=== PATIENT | female | born 1955 | race Caucasian/White ===

== ENCOUNTER 2018-06-15 13:56 | Inpatient (IN) | payer OTHER, MEDICARE ==
[2018-06-15] MEDS ORDERED: ONDANSETRON 4 MG/2 ML VIAL IVP STA (14:29)
[2018-06-15] MEDS ORDERED: HYDROmorphone 1 MG/ML 1 ML SYRINGE IVP STA (14:29)
--- NOTE | 2018-06-15 14:32 | ED ---
General Adult HPI - General Chief complaint: Shortness of Breath Stated complaint: weakness Time Seen by Provider: 06/15/18 14:00 Source: patient, family, RN notes reviewed Mode of arrival: wheelchair Limitations: no limitations - History of Present Illness Initial comments: This is a 63-year-old female with a past medical history significant for a recent hysterectomy including both ovaries this occurred on May 14. Patient 's uterus wasn't here to the colon so they did a colectomy as well and the patient ended up with an ileostomy. Patient has had post op fevers initially and she was sent back to [facility] and they put her on antibiotics and sent home on Invanz. Patient comes in today because she has had weakness over the last few days the point where she can barely stand up. Patient has no new complaints of pain. Patient denies any chest pain difficulty breathing shortest breath per patient patient states she has some lower abdominal pain but she's had that pain since her surgery on May 14 and she has had no new pain in that area.patient denies nausea vomiting or diarrhea. Patient denies any back pain. Patient denies any recent injury or fall. Patient denies any fever or chills. Patient denies any dysuria hematuria or urinary frequency. Patient denies any cough. - Related Data Home Medications Medication Instructions Recorded Confirmed Ertapenem [INVanz] 1 gm IVPB Q24H 06/15/18 06/15/18 Lisinopril [Zestril] 10 mg PO DAILY PRN 06/15/18 06/15/18 oxyCODONE HCL [OxyIR] 5 mg PO Q4H PRN 06/15/18 06/15/18 Allergies Allergy/AdvReac Type Severity Reaction Status Date / Time No Known Allergies Allergy Verified 06/15/18 14:35 Review of Systems ROS Statement: Those systems with pertinent positive or pertinent negative responses have been documented in the HPI. ROS Other: All systems not noted in ROS Statement are negative. Past Medical History Past Medical History: Hypertension, Rheumatoid Arthritis (RA) History of Any Multi-Drug Resistant Organisms: None Reported Past Surgical History: Bowel Resection, Hysterectomy, Joint Replacement, Orthopedic Surgery Additional Past Surgical History / Comment(s): ileostomy, colon resection Past Psychological History: No Psychological Hx Reported Smoking Status: Never smoker Past Alcohol Use History: Occasional Past Drug Use History: Marijuana General Exam - General Exam Comments Initial Comments: GENERAL: Patient is well-developed and well-nourished. Patient is nontoxic and well- hydrated and is in mild distress. ENT: Neck is soft and supple. No significant lymphadenopathy is noted. Oropharynx is clear. Moist mucous membranes. Neck has full range of motion without eliciting any pain. EYES: The sclera were anicteric and conjunctiva were pink and moist. Extraocular movements were intact and pupils were equal round and reactive to light. Eyelids were unremarkable. PULMONARY: Unlabored respirations. Good breath sounds bilaterally. No audible rales rhonchi or wheezing was noted. CARDIOVASCULAR: patient is tachycardic at about 110 beats a minute ABDOMEN: patient has mild diffuse abdominal tenderness. Patient has an ileostomy SKIN: Skin is clear with no lesions or rashes and otherwise unremarkable. NEUROLOGIC: Patient is alert and oriented x3. Cranial nerves II through XII are grossly intact. Motor and sensory are also intact. Normal speech, volume and content. Symmetrical smile. MUSCULOSKELETAL: Normal extremities with adequate strength and full range of motion. No lower extremity swelling or edema. No calf tenderness. LYMPHATICS: No significant lymphadenopathy is noted PSYCHIATRIC: Normal psychiatric evaluation. Limitations: no limitations Course Vital Signs 06/15/18 06/15/18 14:03 16:05 Temperature 97.9 F Pulse Rate 122 H Pulse Rate [ 116 H Right Standing] Pulse Rate [ 103 H Sitting] Pulse Rate [ 93 Supine] Respiratory 24 Rate Blood Pressure 71/58 Blood Pressure 135/79 [Right Arm Sitting] Blood Pressure 116/73 [Right Arm Supine] Blood Pressure 96/68 [Standing] O2 Sat by Pulse 95 Oximetry Medical Decision Making - Lab Data Result diagrams: 06/15/18 14:25 06/15/18 16:25 Lab Results 06/15/18 06/15/18 06/15/18 Range/Units 14:25 14:25 14:25 WBC 12.4 H (3.8-10.6) k/uL RBC 4.31 (3.80-5.40) m/uL Hgb 11.5 (11.4-16.0) gm/dL Hct 36.7 (34.0-46.0) % MCV 85.0 (80.0-100.0) fL MCH 26.8 (25.0-35.0) pg MCHC 31.5 (31.0-37.0) g/dL RDW 17.5 H (11.5-15.5) % Plt Count 482 H (150-450) k/uL Neutrophils % 75 % Lymphocytes % 18 % Monocytes % 4 % Eosinophils % 2 % Basophils % 1 % Neutrophils # 9.3 H (1.3-7.7) k/uL Lymphocytes # 2.2 (1.0-4.8) k/uL Monocytes # 0.5 (0-1.0) k/uL Eosinophils # 0.2 (0-0.7) k/uL Basophils # 0.1 (0-0.2) k/uL Hypochromasia Slight Anisocytosis Slight PT (9.0-12.0) sec INR (<1.2) APTT (22.0-30.0) sec Sodium 135 L (137-145) mmol/L Potassium 5.8 H (3.5-5.1) mmol/L Chloride 105 (98-107) mmol/L Carbon Dioxide 20 L (22-30) mmol/L Anion Gap 10 mmol/L BUN 22 H (7-17) mg/dL Creatinine 1.35 H (0.52-1.04) mg/dL Est GFR (CKD-EPI)AfAm 48 (>60 ml/min/1.73 sqM) Est GFR (CKD-EPI)NonAf 42 (>60 ml/min/1.73 sqM) Glucose 146 H (74-99) mg/dL Plasma Lactic Acid Alireza (0.7-2.0) mmol/L Calcium 8.7 (8.4-10.2) mg/dL Total Bilirubin 0.4 (0.2-1.3) mg/dL AST 20 (14-36) U/L ALT 23 (9-52) U/L Alkaline Phosphatase 172 H (38-126) U/L Total Creatine Kinase <20 L (30-135) U/L CK-MB (CK-2) 0.7 (0.0-2.4) ng/mL CK-MB (CK-2) Rel Index Troponin I <0.012 (0.000-0.034) ng/mL Total Protein 6.9 (6.3-8.2) g/dL Albumin 2.9 L (3.5-5.0) g/dL Urine Color Urine Appearance (Clear) Urine pH (5.0-8.0) Ur Specific [place] (1.001-1.035) Urine Protein (Negative) Urine Glucose (UA) (Negative) Urine Ketones (Negative) Urine Blood (Negative) Urine Nitrite (Negative) Urine Bilirubin (Negative) Urine Urobilinogen (<2.0) mg/dL Ur Leukocyte Esterase (Negative) Urine RBC (0-5) /hpf Urine WBC (0-5) /hpf Urine WBC Clumps (None) /hpf 06/15/18 06/15/18 06/15/18 Range/Units 14:25 14:25 16:25 WBC (3.8-10.6) k/uL RBC (3.80-5.40) m/uL Hgb (11.4-16.0) gm/dL Hct (34.0-46.0) % MCV (80.0-100.0) fL MCH (25.0-35.0) pg MCHC (31.0-37.0) g/dL RDW (11.5-15.5) % Plt Count (150-450) k/uL Neutrophils % % Lymphocytes % % Monocytes % % Eosinophils % % Basophils % % Neutrophils # (1.3-7.7) k/uL Lymphocytes # (1.0-4.8) k/uL Monocytes # (0-1.0) k/uL Eosinophils # (0-0.7) k/uL Basophils # (0-0.2) k/uL Hypochromasia Anisocytosis PT 10.1 (9.0-12.0) sec INR 0.9 (<1.2) APTT 22.8 (22.0-30.0) sec Sodium (137-145) mmol/L Potassium (3.5-5.1) mmol/L Chloride (98-107) mmol/L Carbon Dioxide (22-30) mmol/L Anion Gap mmol/L BUN (7-17) mg/dL Creatinine (0.52-1.04) mg/dL Est GFR (CKD-EPI)AfAm (>60 ml/min/1.73 sqM) Est GFR (CKD-EPI)NonAf (>60 ml/min/1.73 sqM) Glucose (74-99) mg/dL Plasma Lactic Acid Alireza 1.9 (0.7-2.0) mmol/L Calcium (8.4-10.2) mg/dL Total Bilirubin (0.2-1.3) mg/dL AST (14-36) U/L ALT (9-52) U/L Alkaline Phosphatase (38-126) U/L Total Creatine Kinase (30-135) U/L CK-MB (CK-2) (0.0-2.4) ng/mL CK-MB (CK-2) Rel Index Troponin I (0.000-0.034) ng/mL Total Protein (6.3-8.2) g/dL Albumin (3.5-5.0) g/dL Urine Color Light Red Urine Appearance Turbid H (Clear) Urine pH 6.5 (5.0-8.0) Ur Specific [place] 1.021 (1.001-1.035) Urine Protein 3+ H (Negative) Urine Glucose (UA) Negative (Negative) Urine Ketones Negative (Negative) Urine Blood Moderate H (Negative) Urine Nitrite Negative (Negative) Urine Bilirubin Negative (Negative) Urine Urobilinogen 8.0 (<2.0) mg/dL Ur Leukocyte Esterase Large H (Negative) Urine RBC 84 H (0-5) /hpf Urine WBC >182 H (0-5) /hpf Urine WBC Clumps Many H (None) /hpf 06/15/18 Range/Units 16:25 WBC (3.8-10.6) k/uL RBC (3.80-5.40) m/uL Hgb (11.4-16.0) gm/dL Hct (34.0-46.0) % MCV (80.0-100.0) fL MCH (25.0-35.0) pg MCHC (31.0-37.0) g/dL RDW (11.5-15.5) % Plt Count (150-450) k/uL Neutrophils % % Lymphocytes % % Monocytes % % Eosinophils % % Basophils % % Neutrophils # (1.3-7.7) k/uL Lymphocytes # (1.0-4.8) k/uL Monocytes # (0-1.0) k/uL Eosinophils # (0-0.7) k/uL Basophils # (0-0.2) k/uL Hypochromasia Anisocytosis PT (9.0-12.0) sec INR (<1.2) APTT (22.0-30.0) sec Sodium (137-145) mmol/L Potassium 5.8 H (3.5-5.1) mmol/L Chloride (98-107) mmol/L Carbon Dioxide (22-30) mmol/L Anion Gap mmol/L BUN (7-17) mg/dL Creatinine (0.52-1.04) mg/dL Est GFR (CKD-EPI)AfAm (>60 ml/min/1.73 sqM) Est GFR (CKD-EPI)NonAf (>60 ml/min/1.73 sqM) Glucose (74-99) mg/dL Plasma Lactic Acid [place] (0.7-2.0) mmol/L Calcium (8.4-10.2) mg/dL Total Bilirubin (0.2-1.3) mg/dL AST (14-36) U/L ALT (9-52) U/L Alkaline Phosphatase (38-126) U/L Total Creatine Kinase (30-135) U/L CK-MB (CK-2) (0.0-2.4) ng/mL CK-MB (CK-2) Rel Index Troponin I (0.000-0.034) ng/mL Total Protein (6.3-8.2) g/dL Albumin (3.5-5.0) g/dL Urine Color Urine Appearance (Clear) Urine pH (5.0-8.0) Ur Specific [place] (1.001-1.035) Urine Protein (Negative) Urine Glucose (UA) (Negative) Urine Ketones (Negative) Urine Blood (Negative) Urine Nitrite (Negative) Urine Bilirubin (Negative) Urine Urobilinogen (<2.0) mg/dL Ur Leukocyte Esterase (Negative) Urine RBC (0-5) /hpf Urine WBC (0-5) /hpf Urine WBC Clumps (None) /hpf Disposition Clinical Impression: Sepsis, Urinary tract infection Disposition: ADMITTED IP TO THIS HOSP Referrals: Tammy Antony MD [Primary Care Provider] - 1-2 days Time of Disposition: 16:56
[2018-06-15 14:57] LABS: Anisocytosis Slight; Basophils # (A) 0.1 k/uL (0-0.2); Basophils % (A) 1 %; Eosinophils # (A) 0.2 k/uL (0-0.7); Eosinophils % (A) 2 %; HCT 36.7 % (34.0-46.0); HGB 11.5 gm/dL (11.4-16.0); Hypochromasia Slight; Lymphocytes # (A) 2.2 k/uL (1.0-4.8); Lymphocytes % (A) 18 %; MCH 26.8 pg (25.0-35.0); MCHC 31.5 g/dL (31.0-37.0); Mean Platelet Volume 7.4; Monocytes # (A) 0.5 k/uL (0-1.0); Monocytes % (A) 4 %; Neutrophils # (A) 9.3 k/uL (1.3-7.7); Neutrophils % (A) 75 %; Platelet Count 482 k/uL (150-450); RBC 4.31 m/uL (3.80-5.40); RDW 17.5 % (11.5-15.5); WBC 12.4 k/uL (3.8-10.6)
[2018-06-15] MEDS ORDERED: SODIUM CHLORIDE 0.9% 500 ML 500 ML IV ONE (14:57)
[2018-06-15] MEDS ORDERED: SODIUM CHLORIDE 0.9% 1,000 ML IV ONE (14:57)
[2018-06-15 15:05] LABS: INR 0.9 (<1.2); Partial Thromboplastin Time 22.8 sec (22.0-30.0); Prothrombin Time 10.1 sec (9.0-12.0)
[2018-06-15 15:13] LABS: Albumin 2.9 g/dL (3.5-5.0); Calcium 8.7 mg/dL (8.4-10.2); Potassium 5.8 mmol/L (3.5-5.1); Total Bilirubin 0.4 mg/dL (0.2-1.3); Total Protein 6.9 g/dL (6.3-8.2)
[2018-06-15 15:15] LABS: Creatine Kinase <20 U/L (30-135)
[2018-06-15 15:28] LABS: Creatine Kinase MB 0.7 ng/mL (0.0-2.4); Troponin I <0.012 ng/mL (0.000-0.034)
[2018-06-15 16:47] LABS: Appearance,Urine Turbid (Clear); Bilirubin,Urine Negative (Negative); Blood,Urine Moderate (Negative); Color,Urine Light Red; Glucose,Urine (UA) Negative (Negative); Ketones,Urine Negative (Negative); Leukocyte Esterase,Urine Large (Negative); Nitrite,Urine Negative (Negative); PH, Urine 6.5 (5.0-8.0); Protein,Urine 3+ (Negative); RBC,Urine 84 /hpf (0-5); WBC,Urine >182 /hpf (0-5)
[2018-06-15 16:52] LABS: Specific Gravity,Urine 1.021 (1.001-1.035)
--- NOTE | 2018-06-15 17:49 | XR ---
EXAMINATION: XR chest 2V DATE AND TIME: 06/15/2018 4:42 PM CLINICAL INDICATION: PHH; Weakness TECHNIQUE: Departmental protocol COMPARISON: 03/04/2018 FINDINGS: Right upper extremity PICC line tip is over the expected position of the cavoatrial junction. The lungs are clear. The pleural spaces are negative. The cardiac silhouette is not enlarged. The remainder of the mediastinal silhouette is unremarkable. The skeletal structures and soft tissues are negative for acute findings. IMPRESSION: NO ACUTE PROCESS.
[2018-06-15] MEDS ORDERED: FUROSEMIDE 10 MG/ML 4 ML VIAL IV STA (18:51)
[2018-06-15] MEDS ORDERED: ALBUTEROL NEBULIZED 2.5 MG/3 ML INHALATION STA ×2 (18:53→19:22)
[2018-06-15 20:15] VITALS: BMI 13.8
[2018-06-15] MEDS ORDERED: LISINOPRIL 10 MG TAB PO PRN (20:46)
[2018-06-15] MEDS ORDERED: ERTAPENEM 1 GM VIAL IVPB SCH (21:00)
[2018-06-15] MEDS: SODIUM CHLORIDE 0.9% 1,000 ML IV SCH (23:03)
[2018-06-16] MEDS: SODIUM CHLORIDE 0.9% 1,000 ML IV SCH ×3 (04:48→21:59)
[2018-06-16] MEDS ORDERED: ONDANSETRON 4 MG/2 ML VIAL IVP PRN (09:39)
[2018-06-16] MEDS: ERTAPENEM 1 GM in SODIUM CHLORIDE 0.9% 50 ML IVPB SCH (12:39)
[2018-06-16 15:40] LABS: Potassium 5.1 mmol/L (3.5-5.1)
[2018-06-16 15:41] LABS: Calcium 7.5 mg/dL (8.4-10.2)
--- NOTE | 2018-06-17 00:17 | P.HPIM ---
History of Present Illness H&P Date: 06/16/18 Chief Complaint: Generalized weakness Patient is a 63-year-old female with a known history of hypertension, rheumatoid arthritis and her recent history of uterine cancer status post hysterectomy and colectomy as well as years replacement on 05/14/2018, was sent to Hospital by her home visiting nurse due to worsening weakness and lethargy for the past 1 week. Patient has been very weak and unable to stand up. Patient is being treated for urinary tract infection with Invanz after she had postoperative fevers and possible urinary tract infection at [facility]. Otherwise patient denied any complaints of chest pain or shortness of breath. Patient does have lower abdominal pain and also has been having loose stools in the ileostomy which is expected. Lower abdominal pain has been present since surgery which is not new as per Patient. Denied any nausea vomiting. Denied any diarrhea in the ileostomy bag. Denied any dysuria or hematuria. No cough or sputum production. Patient has not been eating very well since discharge from hospital. Patient was tachycardic on admission BUN 22 and creatinine 1.35 WBC 12.5 Potassium 5.8 Albumin 2.9 Review of Systems Constitutional: Patient denies any fever or chills . Generalized weakness and fatigue. Abdomen: Patient denied nausea vomiting and diarrhea . Lower abdominal pain. Cardiovascular: Patient denies any chest pain or short of breath no palpitations. Respiratory: patient denied any cough is from production. No shortness of breath Neurologic: Patient denied any numbness or tingling headache. Musculoskeletal: Patient denies any complaints of joint swelling or deformity. Skin: Negative Psychiatric: Negative Endocrine: No heat or cold intolerance. No recent weight gain. Genitourinary: No dysuria or hematuria. All other 14 point ROS negative except the above Past Medical History Past Medical History: Hypertension, Rheumatoid Arthritis (RA) History of Any Multi-Drug Resistant Organisms: None Reported Past Surgical History: Bowel Resection, Hysterectomy, Joint Replacement, Orthopedic Surgery Additional Past Surgical History / Comment(s): ileostomy, colon resection Past Anesthesia/Blood Transfusion Reactions: No Reported Reaction Past Psychological History: No Psychological Hx Reported Additional Psychological History / Comment(s): Lives with her significant other. Ongoing tobacco smoker. No experience. No international travel. Disabled Smoking Status: Current every day smoker Past Alcohol Use History: Occasional Past Drug Use History: Marijuana - Past Family History Father Family Medical History: Coronary Artery Disease (CAD) Mother Family Medical History: Hypertension Brother(s) Family Medical History: Diabetes Mellitus Medications and Allergies Home Medications Medication Instructions Recorded Confirmed Type Ertapenem [INVanz] 1 gm IVPB Q24H 06/15/18 06/15/18 History Lisinopril [Zestril] 10 mg PO DAILY PRN 06/15/18 06/15/18 History oxyCODONE HCL [OxyIR] 5 mg PO Q4H PRN 06/15/18 06/15/18 History Allergies Allergy/AdvReac Type Severity Reaction Status Date / Time No Known Allergies Allergy Verified 06/15/18 14:35 Physical Exam Vitals: Vital Signs Temp Pulse Pulse Pulse Pulse Resp BP 06/16/18 07:00 98.7 F 91 17 103/66 06/15/18 23:46 97.8 F 88 16 06/15/18 20:17 82 06/15/18 20:00 118 H 06/15/18 19:46 97.6 F 83 16 06/15/18 16:05 116 H 103 H 93 135/79 BP BP Pulse Ox 06/16/18 07:00 100 06/15/18 23:46 105/71 100 06/15/18 20:17 06/15/18 20:00 06/15/18 19:46 96/49 100 06/15/18 16:05 116/73 96/68 Intake and Output 06/15/18 06/16/18 06/16/18 22:59 06:59 14:59 Intake Total 1350 1326 Output Total 400 Balance 950 1326 Intake: Intake, IV Titration 1350 Amount Sodium Chloride 0.9% 1, 1350 000 ml @ 150 mls/hr IV . Q6H40M [facility] Rx#:[id number] Oral 1326 Output: Stool 400 Other: Voiding Method Bedside Commode Bedside Commode # Voids 1 3 PHYSICAL EXAMINATION: Patient is lying in the bed comfortably, no acute distress, awake alert and oriented.. HEENT: Normocephalic. Neck is supple. Pupils reactive. Nostrils clear. Oral cavity is moist. Ears reveal no drainage. Neck reveals no JVD, carotid bruits, or thyromegaly. CHEST EXAMINATION: Trachea is central. Symmetrical expansion. Lung bernal clear to auscultation and percussion. CARDIAC: Normal S1, S2 with no gallops. No murmurs ABDOMEN: Soft. Lower abdominal tenderness. No guarding or rigidity. Ileostomy back in place. Bowel sounds normal. No organomegaly. No abdominal bruits. Extremities: reveal no edema. No clubbing or cyanosis Neurologically awake, alert, oriented x3 with well-coordinated movements. No focal deficits noted Skin: No rash or skin lesions. Psychiatric: Coperative. Nonsuicidal Musculoskeletal: No joint swelling or deformity. Normal range of motion. Results CBC & Chem 7: 06/15/18 14:25 06/16/18 15:05 Labs: Abnormal Lab Results - Last 24 Hours (Table) 06/15/18 06/15/18 06/15/18 Range/Units 14:25 14:25 14:25 WBC 12.4 H (3.8-10.6) k/uL RDW 17.5 H (11.5-15.5) % Plt Count 482 H (150-450) k/uL Neutrophils # 9.3 H (1.3-7.7) k/uL Sodium 135 L (137-145) mmol/L Potassium 5.8 H (3.5-5.1) mmol/L Carbon Dioxide 20 L (22-30) mmol/L BUN 22 H (7-17) mg/dL Creatinine 1.35 H (0.52-1.04) mg/dL Glucose 146 H (74-99) mg/dL Alkaline Phosphatase 172 H (38-126) U/L Total Creatine Kinase <20 L (30-135) U/L Albumin 2.9 L (3.5-5.0) g/dL Urine Appearance (Clear) Urine Protein (Negative) Urine Blood (Negative) Ur Leukocyte Esterase (Negative) Urine RBC (0-5) /hpf Urine WBC (0-5) /hpf Urine WBC Clumps (None) /hpf 06/15/18 06/15/18 Range/Units 16:25 16:25 WBC (3.8-10.6) k/uL RDW (11.5-15.5) % Plt Count (150-450) k/uL Neutrophils # (1.3-7.7) k/uL Sodium (137-145) mmol/L Potassium 5.8 H (3.5-5.1) mmol/L Carbon Dioxide (22-30) mmol/L BUN (7-17) mg/dL Creatinine (0.52-1.04) mg/dL Glucose (74-99) mg/dL Alkaline Phosphatase (38-126) U/L Total Creatine Kinase (30-135) U/L Albumin (3.5-5.0) g/dL Urine Appearance Turbid H (Clear) Urine Protein 3+ H (Negative) Urine Blood Moderate H (Negative) Ur Leukocyte Esterase Large H (Negative) Urine RBC 84 H (0-5) /hpf Urine WBC >182 H (0-5) /hpf Urine WBC Clumps Many H (None) /hpf Thrombosis Risk Factor Assmnt - DVT/VTE Prophylaxis DVT/VTE Prophylaxis: Pharmacologic Prophylaxis ordered - Choose All That Apply Each Risk Factor Represents 2 Points: Age 61-74 years Thrombosis Risk Factor Assessment Total Risk Factor Score: 2 Thrombosis Risk Factor Assessment Level: Low Risk Assessment and Plan Assessment: Generalized weakness and lethargy secondary to dehydration and volume depletion Acute urinary tract infection Lower abdominal pain Recent history of hysterectomy and colectomy status post ileostomy Acute kidney injury most likely prerenal Mild hyperkalemia secondary to acute kidney injury. Improved Hypertension History of rheumatoid arthritis Nicotine addiction History of marijuana use DVT prophylaxis Plan: Next and patient will be continued on IV hydration. Encourage oral intake. Follow-up renal function. Continue with pain medications and follow up closely. Continue with antibiotics course with Invanz which she has been taking at home currently. Repeat urine culture report. Follow-up blood cultures. Encourage ambulation and PTOT. Further recommendations based on the clinical course. Anticipate discharged home with clinical improvement in next 24-48 hours. Time with Patient: Greater than 30
[2018-06-17] MEDS: SODIUM CHLORIDE 0.9% 1,000 ML IV SCH ×2 (01:15→05:43)
[2018-06-17 08:00] LABS: Anisocytosis Slight; Basophils # (A) 0.1 k/uL (0-0.2); Basophils % (A) 1 %; Eosinophils # (A) 0.2 k/uL (0-0.7); Eosinophils % (A) 4 %; HCT 29.8 % (34.0-46.0); Hypochromasia Marked; Lymphocytes # (A) 1.4 k/uL (1.0-4.8); Lymphocytes % (A) 26 %; MCH 26.5 pg (25.0-35.0); MCHC 30.2 g/dL (31.0-37.0); MCV 87.8 fL (80.0-100.0); Mean Platelet Volume 6.5; Monocytes # (A) 0.3 k/uL (0-1.0); Monocytes % (A) 5 %; Neutrophils # (A) 3.5 k/uL (1.3-7.7); Neutrophils % (A) 63 %; Platelet Count 384 k/uL (150-450); RDW 17.1 % (11.5-15.5); WBC 5.5 k/uL (3.8-10.6)
[2018-06-17] MEDS ORDERED: HEPARIN SODIUM,PORCINE 5,000 UNIT/ML 1 ML VIAL SQ SCH (08:00)
[2018-06-17 08:07] LABS: Albumin 2.2 g/dL (3.5-5.0); Calcium 7.8 mg/dL (8.4-10.2); Potassium 4.5 mmol/L (3.5-5.1); Total Bilirubin 0.4 mg/dL (0.2-1.3); Total Protein 5.3 g/dL (6.3-8.2)
[2018-06-17] MEDS: ERTAPENEM 1 GM in SODIUM CHLORIDE 0.9% 50 ML IVPB SCH (12:19)
[2018-06-17 15:02] VITALS: BP 117/68; PULSE 84; RESP 14; TEMP 98.7
--- NOTE | 2018-06-17 23:55 | P.DS ---
Providers Date of admission: 06/15/18 16:58 Expected date of discharge: 06/17/18 Attending physician: Teetee Rodgers Primary care physician: Tammy Antony [facility] Course: Discharge diagnosis Generalized weakness and lethargy secondary to dehydration and volume depletion. Improved now Acute urinary tract infection can with current antibiotics with Invanz. Follow- up culture reports. Lower abdominal pain Recent history of hysterectomy and colectomy status post ileostomy Acute kidney injury most likely prerenal Mild hyperkalemia secondary to acute kidney injury. Improved Hypertension History of rheumatoid arthritis Nicotine addiction History of marijuana use DVT prophylaxis Hospital course Patient is a 63-year-old female with a known history of hypertension, rheumatoid arthritis and her recent history of uterine cancer status post hysterectomy and colectomy as well as years replacement on 05/14/2018, was sent to Hospital by her home visiting nurse due to worsening weakness and lethargy for the past 1 week. Patient has been very weak and unable to stand up. Patient is being treated for urinary tract infection with Invanz after she had postoperative fevers and possible urinary tract infection at [facility]. Otherwise patient denied any complaints of chest pain or shortness of breath. Patient does have lower abdominal pain and also has been having loose stools in the ileostomy which is expected. Lower abdominal pain has been present since surgery which is not new as per Patient. Denied any nausea vomiting. Denied any diarrhea in the ileostomy bag. Denied any dysuria or hematuria. No cough or sputum production. Patient has not been eating very well since discharge from hospital. Patient was tachycardic on admission BUN 22 and creatinine 1.35 WBC 12.5 Potassium 5.8 Albumin 2.9 Patient was continued on IV hydration. Encourage oral intake. Follow-up renal function. They'll function is improved now. Patient is able to tolerate oral diet. Abdominal pain resolved. Denied any dysuria or hematuria. No acute overnight issues. Patient did improve clinically and is stable to be discharged home. Continue with antibiotics course with Invanz which she has been taking at home currently. Follow-up repeat urine culture and blood cultures. Patient is able to ambulate well. Wants to be discharged home. Discharge physical examination was done. Vitals reviewed. Vital Signs - 24 hr 06/17/18 06/17/18 06/17/18 00:00 03:12 07:45 Temperature 98.0 F Pulse Rate [ Right Standing] Pulse Rate [ 100 Sitting] Respiratory 14 14 16 Rate Blood Pressure 97/67 [Standing] O2 Sat by Pulse 96 Oximetry 06/17/18 14:39 Temperature 98.7 F Pulse Rate [ 84 Right Standing] Pulse Rate [ Sitting] Respiratory 14 Rate Blood Pressure 117/68 [Standing] O2 Sat by Pulse 100 Oximetry Patient Condition at Discharge: Fair Plan - Discharge Summary Discharge Rx Participant: No New Discharge Prescriptions: Continue oxyCODONE HCL [OxyIR] 5 mg PO Q4H PRN PRN Reason: Pain Lisinopril [Zestril] 10 mg PO DAILY PRN PRN Reason: Blood Pressure - High Ertapenem [INVanz] 1 gm IVPB Q24H Discharge Medication List Ertapenem [INVanz] 1 gm IVPB Q24H 06/15/18 [History] Lisinopril [Zestril] 10 mg PO DAILY PRN 06/15/18 [History] oxyCODONE HCL [OxyIR] 5 mg PO Q4H PRN 06/15/18 [History] Follow up Appointment(s)/Referral(s): Tammy Antony MD [Primary Care Provider] - 1-2 days (Office will call patient upon discharge to set up a follow up appointment) Activity/Diet/Wound Care/Special Instructions: [facility]: #[phone] IV antibiotics through [facility]: #[phone] Discharge Disposition: HOME SELF-CARE
--- NOTE | 2018-06-18 13:21 | CDI ---
Documentation Clarification Form Date: 06/18/2018 12:05:00 PM From: Ana Polanco Chantelle Moody, Product Line Manager Hours-8:30 am & 5 pm M-F Admit Date: 06/15/2018 4:58:00 PM Patient Name: Mindi Coronel Visit Number: [id number] Discharge Date: 06/17/2018 4:01:00 PM ATTENTION: The Clinical Documentation Specialists (CDI) and [facility] Coding Staff appreciate your assistance in clarifying documentation. Please respond to the clarification below the line at the bottom and electronically sign. The CDI & [facility] Coding staff will review the response and follow-up if needed. Please note: Queries are made part of the Legal Health Record. If you have any questions, please contact the author of this message via ITS. Dr. Teetee Rodgers Malnutrition has been documented in slipper maker assessment. 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 Mild Protein-Calorie Malnutrition Moderate Protein-Calorie Malnutrition Severe Protein-Calorie Malnutrition Malnutrition, unspecified Malnutrition following GI surgery Other condition, please specify Unable to determine Moderate Protein-Calorie Malnutrition MTDD
--- NOTE | 2018-06-18 13:31 | CDI ---
Documentation Clarification Form Date: 06/18/2018 12:21:00 PM From: Ana Polanco Chantelle Moody, Sort Line Worker Hours-8:30 am & 5 pm MEliel Admit Date: 06/15/2018 4:58:00 PM Patient Name: Mindi Coronel Visit Number: [id number] Discharge Date: 06/17/2018 4:01:00 PM ATTENTION: The Clinical Documentation Specialists (CDI) and [facility] Coding Staff appreciate your assistance in clarifying documentation. Please respond to the clarification below the line at the bottom and electronically sign. The CDI & [facility] Coding staff will review the response and follow-up if needed. Please note: Queries are made part of the Legal Health Record. If you have any questions, please contact the author of this message via ITS. Dr. Teetee Rodgers Sepsis is documented in the ED Notes. History/Risk Factors: UTI, RADHA, Ileostomy, Stage II pressure ulcer WBC: 12.4 Vitals signs on admission: T 97.9, BP 71/58, OH 122, RR 24 Other Clinical Indicators: Treatment: IV Abx In your professional opinion, please clarify if these findings signify one of the following conditions, if known: Sepsis ruled out Sepsis ruled in Severe Sepsis Septic Shock Other, please specify Unable to determine Sepsis ruled out MTDD
== END 2018-06-17 16:01 | disposition home or self-care (01) | DRG 683 ==
LOC: EC 13:56 → 4SSUR 16:58
PROVIDERS: ADMIT Internal Medicine; ATTEND Internal Medicine
DX: N17.9 Acute kidney failure, unspecified (principal); N39.0 Urinary tract infection, site not specified; E44.0 Moderate protein-calorie malnutrition; Z68.1 Body mass index [BMI] 19.9 or less, adult; L89.152 Pressure ulcer of sacral region, stage 2; E87.5 Hyperkalemia; E86.0 Dehydration; M06.9 Rheumatoid arthritis, unspecified; I10 Essential (primary) hypertension; R00.0 Tachycardia, unspecified; F17.200 Nicotine dependence, unspecified, uncomplicated; Z71.3 Dietary counseling and surveillance; Z93.2 Ileostomy status; Z79.899 Other long term (current) drug therapy; Z90.49 Acquired absence of other specified parts of digestive tract; Z90.710 Acquired absence of both cervix and uterus; Z85.42 Personal history of malignant neoplasm of other parts of uterus; Z82.49 Family history of ischemic heart disease and other diseases of the circulatory system; Z83.3 Family history of diabetes mellitus
CPT/HCPCS: 36415; 71046; 80048; 80053; 81001; 82550; 82553; 83605; 84132; 84484; 85025; 85610; 85730; 87040; 87077; 87086; 87186; 93005; 94640; 96361; 96365; 96375; 99285

== ENCOUNTER 2019-03-07 17:15 | Inpatient (IN) | payer OTHER, MEDICARE ==
[2019-03-07] MEDS ORDERED: SODIUM CHLORIDE 0.9% 1,000 ML IV STA (17:48)
--- NOTE | 2019-03-07 17:54 | ED ---
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 Patient reports that she has had progressively worsening kidney function for approximately one year. Patient reports that she is now unable to have her ostomy reversed into the kidney function has been monitored regularly by her primary care physician. Patient reports that her recent blood draw approximately 4 days ago resulted in worsening kidney function and her primary care provider requested that she presented to the ER. Patient does report that she has a cough has been improving, has been ongoing for approximately one week.. Patient declines any other complaints at this time. Systemic: Pt denies fatigue, fever/chills, rash. Pt denies weakness, night sweats, weight loss. Neuro: Pt denies headache, visual disturbances, syncope or pre-syncope. HEENT: Pt denies ocular discharge or irritation, otalgia, rhinorrhea, pharyngitis or notable lymphadenopathy. Cardiopulmonary: Pt denies chest pain, SOB, heart palpitations, dyspnea on exertion. Abdominal/GI: Pt denies abdominal pain, n/v/d. : Pt denies dysuria, burning w/ urination, frequency/urgency. Denies new onset urinary or bowel incontinence. MSK: Pt denies myalgia, loss of strength or function in extremities. Neuro: Pt denies new onset weakness, paresthesias. - Related Data Home Medications Medication Instructions Recorded Confirmed Ertapenem [INVanz] 1 gm IVPB Q24H 06/15/18 06/15/18 Lisinopril [Zestril] 10 mg PO DAILY PRN 06/15/18 06/15/18 oxyCODONE HCL [OxyIR] 5 mg PO Q4H PRN 06/15/18 06/15/18 Allergies Allergy/AdvReac Type Severity Reaction Status Date / Time No Known Allergies Allergy Verified 06/15/18 14:35 Review of Systems ROS Statement: Those systems with pertinent positive or pertinent negative responses have been documented in the HPI. ROS Other: All systems not noted in ROS Statement are negative. Past Medical History Past Medical History: Hypertension, Rheumatoid Arthritis (RA) History of Any Multi-Drug Resistant Organisms: None Reported Past Surgical History: Bowel Resection, Hysterectomy, Joint Replacement, Orthopedic Surgery Additional Past Surgical History / Comment(s): ileostomy, colon resection Past Anesthesia/Blood Transfusion Reactions: No Reported Reaction Past Psychological History: No Psychological Hx Reported Smoking Status: Current every day smoker Past Alcohol Use History: Occasional Past Drug Use History: Marijuana - Past Family History Father Family Medical History: Coronary Artery Disease (CAD) Mother Family Medical History: Hypertension Brother(s) Family Medical History: Diabetes Mellitus General Exam - General Exam Comments Initial Comments: Constitutional: NAD, AOX3, Pt has pleasant affect. HEENT: NC/AT, trachea midline, neck supple, no lymphadenopathy. Posterior pharynx non erythematous, without exudates. External ears appear normal, without discharge. Mucous membranes moist. Eyes PERRLA, EOM intact. There is no scleral icterus. No pallor noted. Cardiopulmonary: RRR, no murmurs, rubs or gallops, no JVD noted. Lungs CTAB in anterior and posterior bernal. No peripheral edema. Abdominal exam: Abdomen soft and non-distended. Abdomen non-tender to palpation in all 4 quadrants. Bowel sounds active in LLQ. No hepatosplenomegaly. No ecchymosis Neuro: CN II-XII grossly intact. No nuchal rigidity. No raccon eyes, no baez s ign, no hemotympanum. No cervical spinal tenderness. MSK: No posterior calf tenderness bilaterally, homans sign negative bilaterally. Posterior tibialis and radial pulse +2 bilaterally. Sensation intact in upper and lower extremities. Full active ROM in upper and lower extremities, 5/5 stregnth. Limitations: no limitations Course Vital Signs 03/07/19 17:32 Temperature 99.1 F Pulse Rate 97 Respiratory 18 Rate Blood Pressure 149/88 O2 Sat by Pulse 99 Oximetry Medical Decision Making - Medical Decision Making 63-year-old female patient with past history significant for chronic kidney disease which has been monitored for approximately the past year presents ED for evaluation after a lab draw by her primary care provider showed significantly decreased kidney function. Patient vital signs are stable, afebrile. Physical exam did not display acute pathology. Patient did also have a mild cough which poorly has been improving. Laboratory investigations revealed a creatinine of 7.48 mild urinary tract infection. Chest x-ray negative. Patient will be admitted for gentle rehydration, nephrology consultation as well as urinary tract infection. Case discussed with Dr. Hurst. - Lab Data Result diagrams: 03/07/19 18:00 03/07/19 18:00 Lab Results 03/07/19 03/07/19 03/07/19 Range/Units 18:00 18:00 18:00 WBC 15.5 H (3.8-10.6) k/uL RBC 4.27 (3.80-5.40) m/uL Hgb 12.5 (11.4-16.0) gm/dL Hct 38.7 (34.0-46.0) % MCV 90.5 (80.0-100.0) fL MCH 29.3 (25.0-35.0) pg MCHC 32.4 (31.0-37.0) g/dL RDW 13.5 (11.5-15.5) % Plt Count 545 H (150-450) k/uL Neutrophils % 80 % Lymphocytes % 13 % Monocytes % 3 % Eosinophils % 1 % Basophils % 1 % Neutrophils # 12.5 H (1.3-7.7) k/uL Lymphocytes # 2.0 (1.0-4.8) k/uL Monocytes # 0.5 (0-1.0) k/uL Eosinophils # 0.2 (0-0.7) k/uL Basophils # 0.2 (0-0.2) k/uL Hypochromasia Slight Sodium 141 (137-145) mmol/L Potassium 4.9 (3.5-5.1) mmol/L Chloride 114 H (98-107) mmol/L Carbon Dioxide 11 L (22-30) mmol/L Anion Gap 16 mmol/L BUN 60 H (7-17) mg/dL Creatinine 7.48 H* (0.52-1.04) mg/dL Est GFR (CKD-EPI)AfAm 6 (>60 ml/min/1.73 sqM) Est GFR (CKD-EPI)NonAf 5 (>60 ml/min/1.73 sqM) Glucose 109 H (74-99) mg/dL Calcium 8.6 (8.4-10.2) mg/dL Total Bilirubin 0.3 (0.2-1.3) mg/dL AST 13 L (14-36) U/L ALT 10 (9-52) U/L Alkaline Phosphatase 109 (38-126) U/L Total Protein 7.6 (6.3-8.2) g/dL Albumin 4.0 (3.5-5.0) g/dL Urine Color Yellow Urine Appearance Cloudy H (Clear) Urine pH 5.5 (5.0-8.0) Ur Specific Enders 1.014 (1.001-1.035) Urine Protein 1+ H (Negative) Urine Glucose (UA) Negative (Negative) Urine Ketones Negative (Negative) Urine Blood Negative (Negative) Urine Nitrite Negative (Negative) Urine Bilirubin Negative (Negative) Urine Urobilinogen <2.0 (<2.0) mg/dL Ur Leukocyte Esterase Moderate H (Negative) Urine RBC 2 (0-5) /hpf Urine WBC 33 H (0-5) /hpf Ur Squamous Epith Cells 6 H (0-4) /hpf Amorphous Sediment Rare H (None) /hpf Urine Bacteria Occasional H (None) /hpf Disposition Clinical Impression: Renal failure, CKD (chronic kidney disease) Disposition: ADMITTED IP TO THIS [facility] Condition: Serious Is patient prescribed a controlled substance at d/c from ED?: No Referrals: Tammy Antony MD [Primary Care Provider] - 1-2 days
[2019-03-07 18:17] LABS: Basophils # (A) 0.2 k/uL (0-0.2); Basophils % (A) 1 %; Eosinophils # (A) 0.2 k/uL (0-0.7); Eosinophils % (A) 1 %; HCT 38.7 % (34.0-46.0); HGB 12.5 gm/dL (11.4-16.0); Hypochromasia Slight; Lymphocytes % (A) 13 %; MCH 29.3 pg (25.0-35.0); MCHC 32.4 g/dL (31.0-37.0); MCV 90.5 fL (80.0-100.0); Mean Platelet Volume 6.6; Monocytes # (A) 0.5 k/uL (0-1.0); Monocytes % (A) 3 %; Neutrophils # (A) 12.5 k/uL (1.3-7.7); Neutrophils % (A) 80 %; Platelet Count 545 k/uL (150-450); RBC 4.27 m/uL (3.80-5.40); RDW 13.5 % (11.5-15.5); WBC 15.5 k/uL (3.8-10.6)
[2019-03-07 18:20] LABS: Amorphous Sediment,Urine Rare /hpf; Appearance,Urine Cloudy (Clear); Bacteria,Urine Occasional /hpf; Bilirubin,Urine Negative (Negative); Blood,Urine Negative (Negative); Color,Urine Yellow; Glucose,Urine (UA) Negative (Negative); Ketones,Urine Negative (Negative); Leukocyte Esterase,Urine Moderate (Negative); Nitrite,Urine Negative (Negative); PH, Urine 5.5 (5.0-8.0); Protein,Urine 1+ (Negative); RBC,Urine 2 /hpf (0-5); Specific Gravity,Urine 1.014 (1.001-1.035); Squamous Epithelial Cell,Urine 6 /hpf (0-4); Urobilinogen,Urine <2.0 mg/dL (<2.0); WBC,Urine 33 /hpf (0-5)
--- NOTE | 2019-03-07 18:23 | XR ---
EXAMINATION TYPE: XR chest 2V DATE OF EXAM: 03/07/2019 COMPARISON: 06/15/2018 HISTORY: Cough TECHNIQUE: Frontal and lateral views of the chest are obtained. FINDINGS: Heart and mediastinum are normal. There is pulmonary hyperinflation and flattening of the diaphragm. There is some spurring in the thoracic spine. There are no hilar masses. Bony thorax is in tact. IMPRESSION: COPD. No active cardiopulmonary disease. No change. Normal heart.
[2019-03-07 18:31] LABS: Calcium 8.6 mg/dL (8.4-10.2); Potassium 4.9 mmol/L (3.5-5.1); Total Bilirubin 0.3 mg/dL (0.2-1.3); Total Protein 7.6 g/dL (6.3-8.2)
[2019-03-07] MEDS ORDERED: NALOXONE 0.4 MG/ML 1 ML VIAL IV PRN (18:59)
[2019-03-07] MEDS: SODIUM CHLORIDE 0.9% 1,000 ML IV SCH (20:16)
[2019-03-08] MEDS: SODIUM CHLORIDE 0.9% 1,000 ML IV SCH (05:15)
[2019-03-08 06:58] LABS: Basophils # (A) 0.2 k/uL (0-0.2); Basophils % (A) 2 %; Eosinophils # (A) 0.1 k/uL (0-0.7); Eosinophils % (A) 1 %; HCT 34.6 % (34.0-46.0); HGB 10.5 gm/dL (11.4-16.0); Hypochromasia Slight; Lymphocytes # (A) 1.8 k/uL (1.0-4.8); Lymphocytes % (A) 18 %; MCH 28.2 pg (25.0-35.0); MCHC 30.3 g/dL (31.0-37.0); MCV 92.9 fL (80.0-100.0); Mean Platelet Volume 6.7; Monocytes # (A) 0.4 k/uL (0-1.0); Monocytes % (A) 4 %; Neutrophils # (A) 7.7 k/uL (1.3-7.7); Neutrophils % (A) 74 %; Platelet Count 443 k/uL (150-450); RBC 3.73 m/uL (3.80-5.40); RDW 13.5 % (11.5-15.5); WBC 10.4 k/uL (3.8-10.6)
[2019-03-08 07:03] LABS: Albumin 3.2 g/dL (3.5-5.0); Calcium 8.5 mg/dL (8.4-10.2); Potassium 4.9 mmol/L (3.5-5.1); Total Bilirubin 0.5 mg/dL (0.2-1.3); Total Protein 6.4 g/dL (6.3-8.2)
[2019-03-08] MEDS: DEXTROSE 5% IN WATER 1,000 ML with SODIUM BICARB (1 MEQ/ML) 150 ML IV SCH (13:06)
--- NOTE | 2019-03-08 14:54 | P.HPIM ---
History of Present Illness Patient was an 63-year-old the was a sent in from PCPs office because of her abnormal labs including serum creatinine going up to 6.4 patient creatinine was normal recently about 0.9 patient has this issue of worsening renal function disease IV fluids and it gets better. Patient admits to using Advil on as- needed basis in spite of her typewriter operator automatic telling him not to use Advil. 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 Patient is receiving IV fluids with some improvement some improvement in her serum creatinine patient was started on sodium bicarbonate drip by nephrology secondary to acidosis related to acute renal failure. Review of Systems REVIEW OF SYSTEMS: CONSTITUTIONAL: No fever, no malaise, no fatigue. HEENT: No recent visual problems or hearing problems. Denied any sore throat. CARDIOVASCULAR: No chest pain, orthopnea, PND, no palpitations, no syncope. PULMONARY: No shortness of breath, no cough, no hemoptysis. GASTROINTESTINAL: No diarrhea, no nausea, no vomiting, no abdominal pain. NEUROLOGICAL: No headaches, no weakness, no numbness. HEMATOLOGICAL: Denies any bleeding or petechiae. GENITOURINARY: Denies any burning micturition, frequency, or urgency. MUSCULOSKELETAL/RHEUMATOLOGICAL: Denies any joint pain, swelling, or any muscle pain. ENDOCRINE: Denies any polyuria or polydipsia. The rest of the 14-point review of systems is negative. Past Medical History Past Medical History: Hypertension, Rheumatoid Arthritis (RA) History of Any Multi-Drug Resistant Organisms: None Reported Past Surgical History: Bowel Resection, Hysterectomy, Joint Replacement, Orthopedic Surgery Additional Past Surgical History / Comment(s): ileostomy, colon resection (4 inches of colon out), total hysterectomy. 4 knuckles replaced, tendon transfers Past Anesthesia/Blood Transfusion Reactions: No Reported Reaction Past Psychological History: No Psychological Hx Reported Additional Psychological History / Comment(s): Lives with her significant other. Ongoing tobacco smoker. No experience. No international travel. D isabled Smoking Status: Current every day smoker Past Alcohol Use History: Occasional Past Drug Use History: Marijuana - Past Family History Father Family Medical History: Coronary Artery Disease (CAD) Mother Family Medical History: Hypertension Brother(s) Family Medical History: Diabetes Mellitus Medications and Allergies Home Medications Medication Instructions Recorded Confirmed Type No Known Home Medications 03/07/19 03/07/19 History Allergies Allergy/AdvReac Type Severity Reaction Status Date / Time No Known Allergies Allergy Verified 03/07/19 19:19 Physical Exam Vitals: Vital Signs Temp Pulse Pulse Resp BP BP Pulse Ox 03/08/19 07:00 98.1 F 76 12 100/60 100 03/08/19 00:53 97.8 F 95 14 101/57 100 03/07/19 20:43 98.4 F 99 14 119/67 98 03/07/19 20:22 98.1 F 61 16 94/48 98 03/07/19 19:22 100 18 102/58 100 03/07/19 17:32 99.1 F 97 18 149/88 99 Intake and Output 03/07/19 03/08/19 03/08/19 22:59 06:59 14:59 Intake Total 100 Balance 100 Intake: Oral 100 Other: Weight 52.163 kg PHYSICAL EXAMINATION: GENERAL: The patient is alert and oriented x3, not in any acute distress. Well developed, well nourished. HEENT: Pupils are round and equally reacting to light. EOMI. No scleral icterus. No conjunctival pallor. Normocephalic, atraumatic. No pharyngeal erythema. No thyromegaly. CARDIOVASCULAR: S1 and S2 present. No murmurs, rubs, or gallops. PULMONARY: Chest is clear to auscultation, no wheezing or crackles. ABDOMEN: Soft, nontender, nondistended, normoactive bowel sounds. No palpable organomegaly. Patient has ileostomy in place with stool MUSCULOSKELETAL: No joint swelling or deformity. EXTREMITIES: No cyanosis, clubbing, or pedal edema. NEUROLOGICAL: Gross neurological examination did not reveal any focal deficits. SKIN: No rashes. Results CBC & Chem 7: 03/08/19 06:09 03/08/19 06:09 Labs: Abnormal Lab Results - Last 24 Hours (Table) 03/07/19 03/07/19 03/07/19 Range/Units 18:00 18:00 18:00 WBC 15.5 H (3.8-10.6) k/uL RBC (3.80-5.40) m/uL Hgb (11.4-16.0) gm/dL MCHC (31.0-37.0) g/dL Plt Count 545 H (150-450) k/uL Neutrophils # 12.5 H (1.3-7.7) k/uL Chloride 114 H (98-107) mmol/L Carbon Dioxide 11 L (22-30) mmol/L BUN 60 H (7-17) mg/dL Creatinine 7.48 H* (0.52-1.04) mg/dL Glucose 109 H (74-99) mg/dL AST 13 L (14-36) U/L Albumin (3.5-5.0) g/dL Urine Appearance Cloudy H (Clear) Urine Protein 1+ H (Negative) Ur Leukocyte Esterase Moderate H (Negative) Urine WBC 33 H (0-5) /hpf Ur Squamous Epith Cells 6 H (0-4) /hpf Amorphous Sediment Rare H (None) /hpf Urine Bacteria Occasional H (None) /hpf 03/08/19 03/08/19 Range/Units 06:09 06:09 WBC (3.8-10.6) k/uL RBC 3.73 L (3.80-5.40) m/uL Hgb 10.5 L (11.4-16.0) gm/dL MCHC 30.3 L (31.0-37.0) g/dL Plt Count (150-450) k/uL Neutrophils # (1.3-7.7) k/uL Chloride 118 H (98-107) mmol/L Carbon Dioxide 12 L (22-30) mmol/L BUN 55 H (7-17) mg/dL Creatinine 6.91 H (0.52-1.04) mg/dL Glucose (74-99) mg/dL AST 12 L (14-36) U/L Albumin 3.2 L (3.5-5.0) g/dL Urine Appearance (Clear) Urine Protein (Negative) Ur Leukocyte Esterase (Negative) Urine WBC (0-5) /hpf Ur Squamous Epith Cells (0-4) /hpf Amorphous Sediment (None) /hpf Urine Bacteria (None) /hpf Microbiology - Last 24 Hours (Table) 03/07/19 18:00 Urine Culture - Preliminary Urine,Voided Thrombosis Risk Factor Assmnt - Choose All That Apply Any of the Below Risk Factors Present?: No Other Risk Factors: No Other congenital or acquired thrombophilia - If yes, enter type in comment: No Thrombosis Risk Factor Assessment Level: Very Low Risk Assessment and Plan Plan: -Acute renal failure: Etiology is not clear probably related to nonsteroidal anti-inflammatory usage, ultrasound of the kidneys being obtained at this time. Nephrology evaluate the patient and patient will continued on IV fluids with repeat basic metabolic profile tomorrow. Patient blood pressure is low normal, may have acute tubular necrosis from this. -Anion gap and non-anion gap metabolic acidosis secondary to acute renal failure. sodium bicarbonate drip -Asymptomatic bacteriuria will not require any antibiotics and medics were discontinued at this time.
--- NOTE | 2019-03-08 15:40 | US ---
EXAMINATION TYPE: US renals and bladder DATE OF EXAM: 03/08/2019 COMPARISON: NONE CLINICAL HISTORY: Renal failure. Patient states renal failure started after surgery in April for Ov brock mass with adhesions. Part of colon removed, total hysterectomy. EXAM MEASUREMENTS: Right Kidney: 8.9 x 4.6 x 4.0 cm Left Kidney: 9.9 x 4.6 x 4.3 cm Post Void Residual Volume: Not calculated. Right Kidney: No hydronephrosis or masses seen, small in size. Left Kidney: No hydronephrosis or masses seen Bladder: not distended Bilateral Jets seen: No Normal Post Void Residual: Not done. Bladder not distended. Kidneys show increased cortical echogenicity. IMPRESSION: Findings consistent with medical renal disease.
--- NOTE | 2019-03-08 15:57 | P.GSCN ---
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 She was told she would have this for approximately 3 months and then it would be reversed. However she states her surgeon is not willing to reverse ostomy at this time due to her chronic electrolyte imbalances. General surgery was consulted to evaluate for possible ileostomy reversal. PAST MEDICAL HISTORY: See list. PAST SURGICAL HISTORY: See list. SOCIAL HISTORY: No illicit drug use. REVIEW OF SYSTEMS: CONSTITUTIONAL: Denies fever or chills. HEENT: Denies blurred vision, vision changes, or eye pain. Denies hemoptysis CARDIOVASCULAR: Denies chest pain or pressure. RESPIRATORY: No shortness of breath. GASTROINTESTINAL: Denies abdominal pain. HEMATOLOGIC: Denies bleeding disorders. GENITOURINARY: Denies any blood in urine. SKIN: Denies pruitis. Denies rash. PHYSICAL EXAM: VITAL SIGNS: Reviewed. GENERAL: Well-developed in no acute distress. HEENT: No sclera icterus. Extraocular movements grossly intact. Moist buccal mucosa. Head is atraumatic, normocephalic. ABDOMEN: Soft. Nondistended. Nontender. Ileostomy noted with brown liquid stool. NEUROLOGIC: Alert and oriented. Cranial nerves II through XII grossly intact. LABORATORY DATA: Most recent laboratory data reveals CBC 10.4. Hemoglobin 10.5. Platelet count 443. Potassium 4.9. BUN 55. Creatinine 6.91. ASSESSMENT: 1. 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 Acute renal failure PLAN: Patient evaluated at the bedside with Dr. Resendiz. Will obtain records from [facility] including operative notes. Records will be reviewed and then options will be discussed with the patient regarding the possibility of reversing ileostomy Nurse practitioner note has been reviewed by physician. Signing provider agrees with the documented findings, assessment, and plan of care. Past Medical History Past Medical History: Hypertension, Rheumatoid Arthritis (RA) History of Any Multi-Drug Resistant Organisms: None Reported Past Surgical History: Bowel Resection, Hysterectomy, Joint Replacement, Orthopedic Surgery Additional Past Surgical History / Comment(s): ileostomy, colon resection (4 inches of colon out), total hysterectomy. 4 knuckles replaced, tendon transfers Past Anesthesia/Blood Transfusion Reactions: No Reported Reaction Past Psychological History: No Psychological Hx Reported Additional Psychological History / Comment(s): Lives with her significant other. Ongoing tobacco smoker. No experience. No international travel. Disabled Smoking Status: Current every day smoker Past Alcohol Use History: Occasional Past Drug Use History: Marijuana - Past Family History Father Family Medical History: Coronary Artery Disease (CAD) Mother Family Medical History: Hypertension Brother(s) Family Medical History: Diabetes Mellitus Medications and Allergies Home Medications Medication Instructions Recorded Confirmed Type No Known Home Medications 03/07/19 03/07/19 History Allergies Allergy/AdvReac Type Severity Reaction Status Date / Time No Known Allergies Allergy Verified 03/07/19 19:19 Surgical - Exam Vital Signs Temp Pulse Resp BP Pulse Ox 99.1 F 97 18 149/88 99 03/07/19 17:32 03/07/19 17:32 03/07/19 17:32 03/07/19 17:32 03/07/19 17:32 Results - Labs 03/08/19 06:09 03/08/19 06:09 Abnormal Lab Results - Last 24 Hours (Table) 03/07/19 03/07/19 03/07/19 Range/Units 18:00 18:00 18:00 WBC 15.5 H (3.8-10.6) k/uL RBC (3.80-5.40) m/uL Hgb (11.4-16.0) gm/dL MCHC (31.0-37.0) g/dL Plt Count 545 H (150-450) k/uL Neutrophils # 12.5 H (1.3-7.7) k/uL Chloride 114 H (98-107) mmol/L Carbon Dioxide 11 L (22-30) mmol/L BUN 60 H (7-17) mg/dL Creatinine 7.48 H* (0.52-1.04) mg/dL Glucose 109 H (74-99) mg/dL AST 13 L (14-36) U/L Albumin (3.5-5.0) g/dL Urine Appearance Cloudy H (Clear) Urine Protein 1+ H (Negative) Ur Leukocyte Esterase Moderate H (Negative) Urine WBC 33 H (0-5) /hpf Ur Squamous Epith Cells 6 H (0-4) /hpf Amorphous Sediment Rare H (None) /hpf Urine Bacteria Occasional H (None) /hpf 03/08/19 03/08/19 Range/Units 06:09 06:09 WBC (3.8-10.6) k/uL RBC 3.73 L (3.80-5.40) m/uL Hgb 10.5 L (11.4-16.0) gm/dL MCHC 30.3 L (31.0-37.0) g/dL Plt Count (150-450) k/uL Neutrophils # (1.3-7.7) k/uL Chloride 118 H (98-107) mmol/L Carbon Dioxide 12 L (22-30) mmol/L BUN 55 H (7-17) mg/dL Creatinine 6.91 H (0.52-1.04) mg/dL Glucose (74-99) mg/dL AST 12 L (14-36) U/L Albumin 3.2 L (3.5-5.0) g/dL Urine Appearance (Clear) Urine Protein (Negative) Ur Leukocyte Esterase (Negative) Urine WBC (0-5) /hpf Ur Squamous Epith Cells (0-4) /hpf Amorphous Sediment (None) /hpf Urine Bacteria (None) /hpf Microbiology - Last 24 Hours (Table) 03/07/19 18:00 Urine Culture - Preliminary Urine,Voided Diabetes panel 03/07/19 03/08/19 Range/Units 18:00 06:09 Sodium 141 141 (137-145) mmol/L Potassium 4.9 4.9 (3.5-5.1) mmol/L Chloride 114 H 118 H (98-107) mmol/L Carbon Dioxide 11 L 12 L (22-30) mmol/L BUN 60 H 55 H (7-17) mg/dL Creatinine 7.48 H* 6.91 H (0.52-1.04) mg/dL Glucose 109 H 79 (74-99) mg/dL Calcium 8.6 8.5 (8.4-10.2) mg/dL AST 13 L 12 L (14-36) U/L ALT 10 10 (9-52) U/L Alkaline Phosphatase 109 72 (38-126) U/L Total Protein 7.6 6.4 (6.3-8.2) g/dL Albumin 4.0 3.2 L (3.5-5.0) g/dL Calcium panel 03/07/19 03/08/19 Range/Units 18:00 06:09 Calcium 8.6 8.5 (8.4-10.2) mg/dL Albumin 4.0 3.2 L (3.5-5.0) g/dL Pituitary panel 03/07/19 03/08/19 Range/Units 18:00 06:09 Sodium 141 141 (137-145) mmol/L Potassium 4.9 4.9 (3.5-5.1) mmol/L Chloride 114 H 118 H (98-107) mmol/L Carbon Dioxide 11 L 12 L (22-30) mmol/L BUN 60 H 55 H (7-17) mg/dL Creatinine 7.48 H* 6.91 H (0.52-1.04) mg/dL Glucose 109 H 79 (74-99) mg/dL Calcium 8.6 8.5 (8.4-10.2) mg/dL Adrenal panel 03/07/19 03/08/19 Range/Units 18:00 06:09 Sodium 141 141 (137-145) mmol/L Potassium 4.9 4.9 (3.5-5.1) mmol/L Chloride 114 H 118 H (98-107) mmol/L Carbon Dioxide 11 L 12 L (22-30) mmol/L BUN 60 H 55 H (7-17) mg/dL Creatinine 7.48 H* 6.91 H (0.52-1.04) mg/dL Glucose 109 H 79 (74-99) mg/dL Calcium 8.6 8.5 (8.4-10.2) mg/dL Total Bilirubin 0.3 0.5 (0.2-1.3) mg/dL AST 13 L 12 L (14-36) U/L ALT 10 10 (9-52) U/L Alkaline Phosphatase 109 72 (38-126) U/L Total Protein 7.6 6.4 (6.3-8.2) g/dL Albumin 4.0 3.2 L (3.5-5.0) g/dL
--- NOTE | 2019-03-08 23:11 | CONS ---
CONSULTATION REASON FOR CONSULTATION: Renal failure. HISTORY OF PRESENT ILLNESS: The patient is a 63-year-old female who was admitted to the hospital as she was noticed to have abnormal labs as outpatient. The patient denies any significant change in how she has been feeling. She admits to good urine output. The patient recently had an ileostomy done in April of this year and she states she has had multiple episodes of renal failure since then. She follows with a wood preserving plant laborer out of the [facility] but is not too keen on going back. On admission, the patient was noted to have a serum creatinine of 7.48 mg/dL. Review of previous labs shows a creatinine in May of 0.9 mg/dL. The patient states she has had issues with hyperkalemia and metabolic acidosis. She does not take sodium bicarb as outpatient. The patient denied use of nonsteroidal anti-inflammatory agents. There is no history of increased output from the ostomy. No nausea or vomiting. No history of use of any other drugs recently. PAST MEDICAL HISTORY: 1. Hypertension. 2. Rheumatoid arthritis. PAST SURGICAL HISTORY: 1. Colon resection. 2. Ileostomy. 3. Hysterectomy. SOCIAL HISTORY: Positive for smoking. The patient also uses marijuana. MEDICATIONS: Medications prior to admission included: 1. Zestril. 2. Invanz. 3. Oxycodone. ALLERGIES: NONE. REVIEW OF SYSTEMS: As per HPI. Other systems negative. PHYSICAL EXAMINATION: On examination, the patient is comfortable, awake, alert, oriented x3, not in any acute distress. Blood pressure is 101/57, heart rate 95 per minute. She is afebrile. EXAMINATION OF THE HEART: S1 and S2. EXAMINATION OF THE LUNGS: Bilateral breath sounds are heard. ABDOMEN: Soft, nontender. Ileostomy is noted. Examination of lower extremities shows no evidence of edema. YOUTH PASTOR examination grossly intact. LABORATORY DATA: Labs show sodium 141, potassium 4.9, chloride 118, CO2 12, BUN 55, creatinine 6.9. Hemoglobin 10.5 g/dL. Urinalysis shows 1+ protein, WBCs 33. ASSESSMENT: 1. Acute kidney injury; appears to be mostly prerenal. Urinalysis does show 1+ protein; however, this may be associated with severe volume depletion. We will repeat another urinalysis down the road. In the meantime, continue with intravenous fluids. Renal function is slightly improved. Check ultrasound of the kidneys. Patient is advised that if she has recurrent episodes of acute kidney injury from volume depletion, she may need outpatient intravenous fluids. 2. Non-gap metabolic acidosis secondary to gastrointestinal fluid loss and renal failure. Will start the patient on intravenous bicarb. 3. Rule out chronic kidney disease. Previous creatinine was 0.9 in May of 2018. We will repeat a urinalysis to rule out underlying proteinuria. 4. History of ileostomy in April of 2018 with colon resection and hysterectomy at that time. 5. Hypotension associated with hypovolemia. PLAN: Continue intravenous fluids. Check ultrasound of the kidneys. Repeat urinalysis in one to two days. Change intravenous fluids to intravenous bicarb. Patient may need oral sodium bicarb as outpatient and she may also need outpatient intravenous fluids. Thank you for this consultation. Will continue to follow this patient with you during her hospitalization. BETSY / EDSONN: [id number] /
[2019-03-09] MEDS: DEXTROSE 5% IN WATER 1,000 ML with SODIUM BICARB (1 MEQ/ML) 150 ML IV SCH ×2 (03:08→14:33)
[2019-03-09 10:19] LABS: Calcium 7.5 mg/dL (8.4-10.2); Potassium 3.2 mmol/L (3.5-5.1)
[2019-03-09] MEDS ORDERED: POTASSIUM CHLORIDE ER 20 MEQ TAB.ER PO STA (11:30)
--- NOTE | 2019-03-09 12:46 | P.PN ---
Subjective Progress Note Date: 03/09/19 CHIEF COMPLAINT: Possible ileostomy reversal HISTORY OF PRESENT ILLNESS: Patient examined at the bedside. Tolerating diet. Denies abdominal pain. No nausea or vomiting. PHYSICAL EXAM: VITAL SIGNS: Reviewed. GENERAL: Well-developed in no acute distress. HEENT: No sclera icterus. Extraocular movements grossly intact. Moist buccal mucosa. Head is atraumatic, normocephalic. ABDOMEN: Soft. Nondistended. Nontender. Ileostomy noted with brown liquid stool. NEUROLOGIC: Alert and oriented. Cranial nerves II through XII grossly intact. ASSESSMENT: 1. 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 Acute renal failure PLAN: Records obtained from Hussein Rosas. Dr. Resendiz to review operative reports and then will review options with the patient regarding the possibility of reversing ileostomy Nurse practitioner note has been reviewed by physician. Signing provider agrees with the documented findings, assessment, and plan of care. Objective - Vital Signs Vital signs: Vital Signs Temp 97.7 F 03/09/19 09:22 Pulse 75 03/09/19 09:22 Resp 18 03/09/19 09:22 BP 102/59 03/09/19 09:22 Pulse Ox 99 03/09/19 09:22 Intake & Output 03/08/19 03/09/19 03/09/19 18:59 06:59 18:59 Intake Total 1280 10 180 Balance 1280 10 180 Intake: Intake, IV Titration 800 Amount Dextrose 5% in Water 1, 50 000 ml @ 100 mls/hr IV . [id number] YEIMI with Sodium Bicarb (1 Meq/ml) 150 ml Rx#:[id number] Sodium Chloride 0.9% 1, 750 000 ml @ 100 mls/hr IV . Q10H YEIMI Rx#:[id number] Oral 480 10 180 Other: Voiding Method Toilet # Voids 2 1 - Labs CBC & Chem 7: 03/08/19 06:09 03/09/19 09:24 Labs: Abnormal Lab Results - Last 24 Hours (Table) 03/09/19 Range/Units 09:24 Potassium 3.2 L (3.5-5.1) mmol/L Carbon Dioxide 19 L (22-30) mmol/L BUN 49 H (7-17) mg/dL Creatinine 5.79 H (0.52-1.04) mg/dL Calcium 7.5 L (8.4-10.2) mg/dL Microbiology - Last 24 Hours (Table) 03/07/19 18:00 Urine Culture - Final Urine,Voided
--- NOTE | 2019-03-09 13:33 | P.PN ---
Subjective 63-year-old female with the ileostomy secondary to her abdominal mass in the past came in with the renal failure nose increased output from ileostomy but still believe it's renal azotemia and proving with IV fluids. With a competent of either acute tubular necrosis or ALLERGIC interstitial nephritis from Advil. Patient's serum creatinine has come down to around 5 from 7. Patient does have chronic kidney disease or medical renal disease. Objective - Vital Signs Vital signs: Vital Signs Temp 97.7 F 03/09/19 09:22 Pulse 75 03/09/19 09:22 Resp 18 03/09/19 09:22 BP 102/59 03/09/19 09:22 Pulse Ox 99 03/09/19 09:22 Intake & Output 03/08/19 03/09/19 03/09/19 18:59 06:59 18:59 Intake Total 1280 10 180 Balance 1280 10 180 Intake: Intake, IV Titration 800 Amount Dextrose 5% in Water 1, 50 000 ml @ 100 mls/hr IV . [id number] YEIMI with Sodium Bicarb (1 Meq/ml) 150 ml Rx#:[id number] Sodium Chloride 0.9% 1, 750 000 ml @ 100 mls/hr IV . Q10H YEIMI Rx#:[id number] Oral 480 10 180 Other: Voiding Method Toilet # Voids 2 1 - Exam GENERAL: The patient is alert and oriented x3, not in any acute distress. Well developed, well nourished. HEENT: Pupils are round and equally reacting to light. EOMI. No scleral icterus. No conjunctival pallor. Normocephalic, atraumatic. No pharyngeal erythema. No thyromegaly. CARDIOVASCULAR: S1 and S2 present. No murmurs, rubs, or gallops. PULMONARY: Chest is clear to auscultation, no wheezing or crackles. ABDOMEN: Soft, nontender, nondistended, normoactive bowel sounds. No palpable organomegaly. Patient has ileostomy in place with stool MUSCULOSKELETAL: No joint swelling or deformity. EXTREMITIES: No cyanosis, clubbing, or pedal edema. NEUROLOGICAL: Gross neurological examination did not reveal any focal deficits. SKIN: No rashes. - Labs CBC & Chem 7: 03/08/19 06:09 03/09/19 09:24 Labs: Abnormal Lab Results - Last 24 Hours (Table) 03/09/19 Range/Units 09:24 Potassium 3.2 L (3.5-5.1) mmol/L Carbon Dioxide 19 L (22-30) mmol/L BUN 49 H (7-17) mg/dL Creatinine 5.79 H (0.52-1.04) mg/dL Calcium 7.5 L (8.4-10.2) mg/dL Microbiology - Last 24 Hours (Table) 03/07/19 18:00 Urine Culture - Final Urine,Voided Assessment and Plan Plan: -Acute renal failure: Etiology is not clear probably related to nonsteroidal anti-inflammatory usage, ultrasound of the kidneys show some chronic kidney dis ease. Nephrology evaluate the patient and patient will continued on IV fluids with repeat basic metabolic profile tomorrow. Patient blood pressure is low normal, may have acute tubular necrosis from this. His kidney function is improving -Anion gap and non-anion gap metabolic acidosis secondary to acute renal failure. Patient is on sodium bicarbonate drip -Asymptomatic bacteriuria will not require any antibiotics and medics were discontinued at this time.
--- NOTE | 2019-03-09 15:21 | PN ---
PROGRESS NOTE Patient is seen for follow for acute kidney injury. She was admitted to the hospital with abnormal labs. Serum creatinine was as high at 7. She is maintained on IV fluids and her creatinine is decreased to 5.7. I did review her previous labs and it looks like patient's creatinine has been all the way from 4 to 7 mg/dL in October and December of 2018. We do have a previous creatinine of around 2 in May of 2018. Patient denies any significant complaints. PHYSICAL EXAMINATION: Blood pressure was 102/59, heart rate 75 per minute, patient is afebrile. Examination of the heart S1, S2. Examination of the lungs, decreased breath sounds at bases. Abdomen is soft, nontender. Examination of the lower extremities shows no evidence of edema. LABS: Show sodium 138, potassium 3.2, chloride 106, CO2 is 19, BUN 49, creatinine 5.79. ASSESSMENT: 1. Acute kidney injury appears to be prerenal. Continue with IV fluids. 2. Severe metabolic acidosis secondary to gastrointestinal fluid loss and worsening renal failure, maintained on IV bicarb, currently improving. 3. Hypokalemia associated with bicarb drip as well as improving renal function and gastrointestinal fluid loss, replace cautiously as patient has a history of hyperkalemia with worsening renal failure. 4. Chronic kidney disease. Ultrasound was unremarkable. UA shows 1+ protein. We will recheck a UA as patient has now been hydrated. PLAN: Repeat UA. Continue with bicarb drip for at least another 24 hours. Replace potassium and repeat labs in a.m. Consider outpatient IV fluids post discharge. MMODL / IJN: [id number] /
[2019-03-10] MEDS: DEXTROSE 5% IN WATER 1,000 ML with SODIUM BICARB (1 MEQ/ML) 150 ML IV SCH (00:13)
[2019-03-10 01:52] LABS: Appearance,Urine Clear (Clear); Bacteria,Urine Rare /hpf; Bilirubin,Urine Negative (Negative); Blood,Urine Negative (Negative); Color,Urine Light Yellow; Glucose,Urine (UA) Negative (Negative); Ketones,Urine Negative (Negative); Leukocyte Esterase,Urine Small (Negative); Mucus,Urine Rare /hpf; Nitrite,Urine Negative (Negative); Protein,Urine Trace (Negative); RBC,Urine 2 /hpf (0-5); Specific Gravity,Urine 1.006 (1.001-1.035); Squamous Epithelial Cell,Urine 1 /hpf (0-4); Urobilinogen,Urine <2.0 mg/dL (<2.0); WBC,Urine 8 /hpf (0-5)
[2019-03-10 07:40] LABS: Calcium 6.8 mg/dL (8.4-10.2); Potassium 3.5 mmol/L (3.5-5.1)
[2019-03-10 07:42] LABS: Basophils # (A) 0.1 k/uL (0-0.2); Basophils % (A) 1 %; Eosinophils # (A) 0.1 k/uL (0-0.7); Eosinophils % (A) 2 %; HGB 9.4 gm/dL (11.4-16.0); Lymphocytes # (A) 1.5 k/uL (1.0-4.8); Lymphocytes % (A) 18 %; MCH 29.6 pg (25.0-35.0); MCHC 33.7 g/dL (31.0-37.0); Mean Platelet Volume 6.4; Monocytes # (A) 0.6 k/uL (0-1.0); Monocytes % (A) 7 %; Neutrophils # (A) 5.9 k/uL (1.3-7.7); Neutrophils % (A) 71 %; Platelet Count 411 k/uL (150-450); RBC 3.19 m/uL (3.80-5.40); RDW 13.4 % (11.5-15.5); WBC 8.3 k/uL (3.8-10.6)
[2019-03-10 07:43] LABS: MCV 87.8 fL (80.0-100.0)
[2019-03-10 08:24] VITALS: TEMP 98.8
[2019-03-10 12:42] VITALS: BP 107/64; PULSE 75; RESP 20
--- NOTE | 2019-03-10 15:31 | CDI ---
Documentation Clarification Form Date: 03/10/2019 From: Paola Barth RN, CCDS Admit Date: 03/07/2019 6:37:00 PM Patient Name: Mindi Coronel Visit Number: [id number] Discharge Date: ATTENTION: The Clinical Documentation Specialists (CDI) and [facility] Coding Staff appreciate your assistance in clarifying documentation. Please respond to the clarification below the line at the bottom and electronically sign. The CDI & [facility] Coding staff will review the response and follow-up if needed. Please note: Queries are made part of the Legal Health Record. If you have any questions, please contact the author of this message via ITS. Dr. Sarah Salazar Patient was admitted with abnormal labs found acute kidney injury. Chronic kidney disease is in consult and subsequent progress note and further clarification is needed. History/Risk Factors: Hypertension, Colon resection with ileostomy, Chronic Kidney disease Current every day smoker Clinical Indicators: 63-year-old female who present with complaint of decreased kidney function that was found on recent blood draw approximately 4 days ago and was sent in by her primary care physician. Renal ultrasound: Findings consistent with medical renal disease. On admission (03/07/19) BUN 60, CR 7.48 GFR 5 03/08/19 BUN 55, CR 6.91 GFR 6 03/09/19 BUN 49 CR 5.79 GFR 7 03/10/19 BUN 49 CR 4.86 GFR 10 Patients Baseline CR 2 (in May of 2018) Treatment: IV @ 100 HR with Bicarb Monitor BUN, CR, Lytes Bicarb drip In order to capture the severity of condition, please clarify if the condition signifies: CKD Stage 1 (GFR > 90) CKD Stage 2 (GFR 60-89) CKD Stage 3 (GFR 30-59) CKD Stage 4 (GFR 15-29) CKD Stage 5 (GFR <15) ESRD Other, please specify Unable to determine (Last Revision: July 2017) CKD stage 4 MTDD
--- NOTE | 2019-03-10 19:52 | PN ---
PROGRESS NOTE Patient was seen this morning for followup for acute kidney injury. She is maintained on IV fluids. Renal function continues to improve. Patient wants to go home today. At this point, I am not sure how low her creatinine will continue to improve to. She is advised that she will be maintained on outpatient IV fluids. PHYSICAL EXAMINATION: On examination, blood pressure was 104/65 this morning, heart rate 78 per minute. She is afebrile. EXAMINATION OF THE HEART: S1 and S2. EXAMINATION OF LUNGS: Bilateral breath sounds are heard. ABDOMEN: Soft, non-tender. Examination of lower extremities shows no evidence of edema. EDITING INTERNSHIP exam is grossly intact. LABS: Hemoglobin 9.4, sodium 139, potassium 3.5, BUN 49, creatinine 4.86. ASSESSMENT: 1. Acute kidney injury, prerenal, currently significantly improved. I will maintain the patient on outpatient IV fluids and follow up labs in about one week's time. At this time, I am not sure where her serum creatinine will settle. We had a creatinine of around 2 mg/dL in May of 2018. UA shows trace proteinuria on the repeat sample. 2. Metabolic acidosis secondary to gastrointestinal fluid loss, now improved. 3. Hypokalemia, status post replacement. PLAN: Patient can be discharged. Maintain 2 L of saline to be administered twice a week for the next 4 weeks. Repeat labs in about one week's time and I will see the patient in the office in about one week. MMEDGARL / EDSONN: [id number] /
--- NOTE | 2019-03-22 17:00 | P.DS ---
Providers Date of admission: 03/07/19 18:37 Attending physician: Louie Cardoso MD Consults: 03/07/19 18:59 Consult Physician Stat Consulting Provider: Sarah Salazar Consult Reason/Comments: acute renal failure, uti Do you want consulting provider notified?: Yes Primary care physician: Tammy Antony [facility] Course: 63-year-old female with the ileostomy secondary to her abdominal mass in the past came in with the renal failure nose increased output from ileostomy but still believe it's renal azotemia and proving with IV fluids. With a competent of either acute tubular necrosis or ALLERGIC interstitial nephritis from Advil. Patient's serum creatinine has come down to around 5 from 7. Patient does have chronic kidney disease or medical renal disease. 03/10/2019 Patient's serum creatinine improved patient has significant output from the ileostomy because of which she gets dehydrated goes into renal failure nephrology valid the patient and arranging for outpatient IV fluid transfusion twice or thrice a week about 2 L and is being discharged today. GENERAL: The patient is alert and oriented x3, not in any acute distress. Well developed, well nourished. HEENT: Pupils are round and equally reacting to light. EOMI. No scleral icterus. No conjunctival pallor. Normocephalic, atraumatic. No pharyngeal erythema. No thyromegaly. CARDIOVASCULAR: S1 and S2 present. No murmurs, rubs, or gallops. PULMONARY: Chest is clear to auscultation, no wheezing or crackles. ABDOMEN: Soft, nontender, nondistended, normoactive bowel sounds. No palpable organomegaly. Patient has ileostomy in place with stool MUSCULOSKELETAL: No joint swelling or deformity. EXTREMITIES: No cyanosis, clubbing, or pedal edema. NEUROLOGICAL: Gross neurological examination did not reveal any focal deficits. SKIN: No rashes. Assessment and Plan Plan: -Acute renal failure: probably related to nonsteroidal anti-inflammatory usage, and increased output from ileostomy for renal failure improved further management as mentioned above -Anion gap and non-anion gap metabolic acidosis secondary to acute renal failure. Was on sodium bicarbonate -Asymptomatic bacteriuria will not require any antibiotics and medics were discontinued at this time. Patient Condition at Discharge: Serious Plan - Discharge Summary Discharge Rx Participant: Yes New Discharge Prescriptions: No Action No Known Home Medications Discharge Medication List No Known Home Medications 03/07/19 [History] Follow up Appointment(s)/Referral(s): Sarah Salazar MD [STAFF PHYSICIAN] - 03/17/19 11:40 am (with Amina ISIDRO) Tammy Antony MD [Primary Care Provider] - 3 Days (office closed at time of discharge. Please call to make appointment) Parish Resendiz MD [STAFF PHYSICIAN] - 03/17/19 4:00 pm Patient Instructions/Handouts: Dehydration (DC), Acute Kidney Injury (DC) Activity/Diet/Wound Care/Special Instructions: [facility]: #[phone] [facility]: #[phone] Discharge Disposition: HOME SELF-CARE
== END 2019-03-10 15:52 | disposition home or self-care (01) | DRG 683 ==
LOC: EC 17:15 → 4SSUR 18:37
PROVIDERS: ADMIT Internal Medicine; ATTEND Internal Medicine
PROC: 05HF33Z Insertion of Infusion Device into Left Cephalic Vein, Percutaneous Approach (ICD-10-PCS; principal; 2019-03-10 08:25)
DX: N17.0 Acute kidney failure with tubular necrosis (principal); E87.2 Acidosis; Z43.2 Encounter for attention to ileostomy; I12.9 Hypertensive chronic kidney disease with stage 1 through stage 4 chronic kidney disease, or unspecified chronic kidney disease; F17.210 Nicotine dependence, cigarettes, uncomplicated; E86.1 Hypovolemia; E87.6 Hypokalemia; M06.9 Rheumatoid arthritis, unspecified; N12 Tubulo-interstitial nephritis, not specified as acute or chronic; T39.395A Adverse effect of other nonsteroidal anti-inflammatory drugs [NSAID], initial encounter; Z82.49 Family history of ischemic heart disease and other diseases of the circulatory system; Z83.3 Family history of diabetes mellitus; Z90.710 Acquired absence of both cervix and uterus; N18.4 Chronic kidney disease, stage 4 (severe); E86.0 Dehydration
CPT/HCPCS: 36410; 36415; 71046; 76770; 76937; 80048; 80053; 81001; 85025; 87086; 96360; 99285

== ENCOUNTER 2019-03-30 07:41 | Day surgery (SDC) | payer OTHER, MEDICARE ==
[2019-03-29 10:29] VITALS: BMI 20.5
[~2019-03-30 07:41] MED LIST: LACTATED RINGERS 1,000 ML IV SCH; LIDOCAINE 1% 20 ML VIAL (10MG/ML) FOR IV START INTRADERMA PRN
[2019-03-30] MEDS ORDERED: NA PHOS,M-B/NA PHOS,DI-BA 133 ML ENEMA RECTAL STA (08:36)
[2019-03-30 09:05] VITALS: RESP 16; TEMP 98.7
[2019-03-30] MEDS ORDERED: PROPOFOL 10 MG/ML 20 ML VIAL IV ONE (09:24)
--- NOTE | 2019-03-30 09:27 | P.GSHP ---
History of Present Illness H&P Date: 03/30/19 Chief Complaint: History of diverticulitis This is a 64-year-old female who's had previous history of diverticulitis. Patient has had a previous low anterior section performed by outside surgeon. The patient had a protective ileostomy that time patient presents today for c olonoscopy. She'll undergo reversal of ileostomy tomorrow. 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 4 knuckles replaced, tendon transfers,carpel tunnel ltl wrists Past Anesthesia/Blood Transfusion Reactions: No Reported Reaction Additional Past Anesthesia/Blood Transfusion Reaction / Comment(s): no problems with prior blood transfusion Additional Psychological History / Comment(s): Lives with her significant other. Ongoing tobacco smoker. No experience. No international travel. Disabled - Past Family History Father Family Medical History: Coronary Artery Disease (CAD) Mother Family Medical History: Hypertension Additional Family Medical History / Comment(s): brain aneurysm Brother(s) Family Medical History: Diabetes Mellitus Medications and Allergies Home Medications Medication Instructions Recorded Confirmed Type Sodium Bicarbonate Tab 1,300 mg PO TID 03/29/19 03/30/19 History Allergies Allergy/AdvReac Type Severity Reaction Status Date / Time No Known Allergies Allergy Verified 03/30/19 08:35 Surgical - Exam Vital Signs Temp Pulse Resp BP Pulse Ox 98.7 F 83 16 141/63 99 03/30/19 08:25 03/30/19 08:25 03/30/19 08:25 03/30/19 08:25 03/30/19 08:25 - General well developed, well nourished, no distress - Eyes PERRL - ENT normal pinna - Neck no masses - Respiratory normal expansion - Cardiovascular Rhythm: regular - Abdomen Ileostomy right lower quadrant Abdomen: soft, non tender Assessment and Plan Assessment: History of perforated diverticulitis with history of low anterior resection. Patient will undergo colonoscopy today. She'll undergo reversal of ileostomy in the a.m.
[2019-03-30 10:07] VITALS: BP 122/70; PULSE 79
[2019-03-30] MEDS ORDERED: HEPARIN SODIUM,PORCINE 100 UNIT/ML 5 ML VIAL IV ONE (11:05)
--- NOTE | 2019-04-11 17:41 | P.OP ---
Date of Procedure: 03/30/19 Preoperative Diagnosis: History of perforated diverticulitis Postoperative Diagnosis: History of perforated diverticulitis Procedure(s) Performed: Colonoscopy Anesthesia: MAC Surgeon: Parish Resendiz Pathology: none sent Condition: stable Disposition: PACU Description of Procedure: The patient's placed on the endoscopy table lateral position. She received IV sedation. Digital rectal exam performed which revealed no abnormalities. Flexible colonoscope was then placed patient anus and passed throughout the entire colon. The ileocecal valve was visualized. The cecum, ascending and transverse colon appeared normal. The descending colon appeared normal. The patient's colon rectal anastomosis visualized. Several bladimir were seen from the anastomosis. The scope was then brought back the distal rectum this appeared normal. Scope was withdrawn for patient.
== END 2019-03-30 11:19 | disposition home or self-care (01) ==
LOC: ORWHC2ENDO 07:41
PROVIDERS: ATTEND Surgery
DX: Z87.19 Personal history of other diseases of the digestive system (principal); K57.30 Diverticulosis of large intestine without perforation or abscess without bleeding; I10 Essential (primary) hypertension; M06.9 Rheumatoid arthritis, unspecified; N17.9 Acute kidney failure, unspecified; K08.89 Other specified disorders of teeth and supporting structures; F17.200 Nicotine dependence, unspecified, uncomplicated; Z93.2 Ileostomy status; Z93.3 Colostomy status; Z87.898 Personal history of other specified conditions; Z90.49 Acquired absence of other specified parts of digestive tract; Z90.710 Acquired absence of both cervix and uterus; Z96.698 Presence of other orthopedic joint implants; Z98.890 Other specified postprocedural states; Z90.89 Acquired absence of other organs; Z79.899 Other long term (current) drug therapy; Z82.49 Family history of ischemic heart disease and other diseases of the circulatory system; Z83.3 Family history of diabetes mellitus
CPT/HCPCS: 45378; J1642; J2704; 44389

== ENCOUNTER 2019-03-31 08:51 | Inpatient (IN) | payer OTHER, MEDICARE ==
[2019-03-29 13:58] VITALS: BMI 20.5
[2019-03-30 09:37] LABS: Basophils % (A) 1 %; Eosinophils # (A) 0.1 k/uL (0-0.7); Eosinophils % (A) 1 %; HCT 32.9 % (34.0-46.0); HGB 10.6 gm/dL (11.4-16.0); Lymphocytes # (A) 1.3 k/uL (1.0-4.8); Lymphocytes % (A) 17 %; MCHC 32.2 g/dL (31.0-37.0); MCV 90.3 fL (80.0-100.0); Mean Platelet Volume 6.5; Monocytes # (A) 0.3 k/uL (0-1.0); Monocytes % (A) 4 %; Neutrophils # (A) 5.7 k/uL (1.3-7.7); Neutrophils % (A) 75 %; Platelet Count 407 k/uL (150-450); RBC 3.64 m/uL (3.80-5.40); RDW 13.5 % (11.5-15.5); WBC 7.6 k/uL (3.8-10.6)
[2019-03-30 10:01] LABS: Calcium 8.9 mg/dL (8.4-10.2); Potassium 5.7 mmol/L (3.5-5.1)
[~2019-03-31 08:51] MED LIST changes: +DEXAMETHASONE SOD PHOSPHATE 10 MG/ML 1 ML VIAL IV ONE; +HEPARIN SODIUM,PORCINE 5,000 UNIT/ML 1 ML VIAL SQ ONE; -LACTATED RINGERS 1,000 ML IV SCH; -LIDOCAINE 1% 20 ML VIAL (10MG/ML) FOR IV START INTRADERMA PRN; +ONDANSETRON 4 MG/2 ML VIAL IVP ONE; +ONDANSETRON 4 MG/2 ML VIAL IVP PRN; +metroNIDAZOLE-NS PMX 500 MG in SALINE 1 100ML.BAG IVPB ONE
[2019-03-31] MEDS: LACTATED RINGERS 1,000 ML IV SCH ×2 (09:44→20:49)
[2019-03-31 10:49] LABS: Potassium 5.1 mmol/L (3.5-5.1)
--- NOTE | 2019-03-31 11:48 | P.GSHP ---
History of Present Illness H&P Date: 03/31/19 Chief Complaint: History of diverticulitis This is a 64-year-old female with previous history of diverticulitis. Patient had her surgery performed by different surgeon. She had a low anterior section performed with protective ileostomy. 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 4 knuckles replaced, tendon transfers,carpel tunnel ltl wrists Past Anesthesia/Blood Transfusion Reactions: No Reported Reaction Additional Past Anesthesia/Blood Transfusion Reaction / Comment(s): no problems with prior blood transfusion Additional Psychological History / Comment(s): Lives with her significant other. Ongoing tobacco smoker. No experience. No international travel. Disabled - Past Family History Father Family Medical History: Coronary Artery Disease (CAD) Mother Family Medical History: Hypertension Additional Family Medical History / Comment(s): brain aneurysm Brother(s) Family Medical History: Diabetes Mellitus Medications and Allergies Home Medications Medication Instructions Recorded Confirmed Type Sodium Bicarbonate Tab 1,300 mg PO TID 03/29/19 03/31/19 History Allergies Allergy/AdvReac Type Severity Reaction Status Date / Time No Known Allergies Allergy Verified 03/31/19 09:21 Surgical - Exam Vital Signs Temp Pulse Resp BP Pulse Ox 98.8 F 91 16 143/66 100 03/31/19 09:29 03/31/19 09:29 03/31/19 09:29 03/31/19 09:29 03/31/19 09:29 - General well developed, well nourished, no distress - Eyes PERRL - ENT normal pinna - Neck no masses - Respiratory normal expansion - Cardiovascular Rhythm: regular - Abdomen Ileostomy in right lower quadrant Abdomen: soft, non tender Results - Labs 03/30/19 09:19 03/31/19 10:18 Abnormal Lab Results - Last 24 Hours (Table) 03/30/19 03/30/19 03/31/19 Range/Units : 09: 10:18 RBC 3.64 L (3.80-5.40) m/uL Hgb 10.6 L (11.4-16.0) gm/dL Hct 32.9 L (34.0-46.0) % Potassium 5.7 H (3.5-5.1) mmol/L Chloride 116 H 112 H (98-107) mmol/L Carbon Dioxide 18 L 18 L (22-30) mmol/L BUN 27 H (7-17) mg/dL Creatinine 4.10 H (0.52-1.04) mg/dL 03/31/19 Range/Units 10:18 RBC (3.80-5.40) m/uL Hgb (11.4-16.0) gm/dL Hct (34.0-46.0) % Potassium (3.5-5.1) mmol/L Chloride (98-107) mmol/L Carbon Dioxide (22-30) mmol/L BUN 24 H (7-17) mg/dL Creatinine 3.95 H (0.52-1.04) mg/dL Diabetes panel 03/30/19 03/31/19 03/31/19 Range/Units : 10:18 10:18 Sodium 143 140 (137-145) mmol/L Potassium 5.7 H 5.1 (3.5-5.1) mmol/L Chloride 116 H 112 H (98-107) mmol/L Carbon Dioxide 18 L 18 L (22-30) mmol/L BUN 27 H 24 H (7-17) mg/dL Creatinine 4.10 H 3.95 H (0.52-1.04) mg/dL Glucose 80 (74-99) mg/dL Calcium 8.9 (8.4-10.2) mg/dL Calcium panel 03/30/19 Range/Units 09: Calcium 8.9 (8.4-10.2) mg/dL Pituitary panel 03/30/19 03/31/19 03/31/19 Range/Units 09: 10:18 10:18 Sodium 143 140 (137-145) mmol/L Potassium 5.7 H 5.1 (3.5-5.1) mmol/L Chloride 116 H 112 H (98-107) mmol/L Carbon Dioxide 18 L 18 L (22-30) mmol/L BUN 27 H 24 H (7-17) mg/dL Creatinine 4.10 H 3.95 H (0.52-1.04) mg/dL Glucose 80 (74-99) mg/dL Calcium 8.9 (8.4-10.2) mg/dL Adrenal panel 03/30/19 03/31/19 03/31/19 Range/Units 09:19 10:18 10:18 Sodium 143 140 (137-145) mmol/L Potassium 5.7 H 5.1 (3.5-5.1) mmol/L Chloride 116 H 112 H (98-107) mmol/L Carbon Dioxide 18 L 18 L (22-30) mmol/L BUN 27 H 24 H (7-17) mg/dL Creatinine 4.10 H 3.95 H (0.52-1.04) mg/dL Glucose 80 (74-99) mg/dL Calcium 8.9 (8.4-10.2) mg/dL Assessment and Plan Assessment: History of diverticula is. We'll perform reversal of ileostomy.
[2019-03-31] MEDS ORDERED: KETAMINE 10 MG/ML 20 ML VIAL ONE (12:02)
[2019-03-31] MEDS ORDERED: NEOSTIGMINE 1 MG/ML 10 ML VIAL ONE (12:02)
[2019-03-31] MEDS ORDERED: PROPOFOL 10 MG/ML 20 ML VIAL IV ONE (12:02)
[2019-03-31] MEDS ORDERED: ROCURONIUM BROMIDE 10 MG/ML 10 ML VIAL IV ONE (12:02)
[2019-03-31] MEDS ORDERED: SUCCINYLCHOLINE CHLORIDE 100 MG/5 ML SYR IV ONE (12:02)
[2019-03-31] MEDS ORDERED: GLYCOPYRROLATE 0.2 MG/ML 2 ML VIAL ONE (12:02)
[2019-03-31] MEDS ORDERED: LIDOCAINE 1% INJ 10MG/ML (20 ML MDV) ONE (12:02)
[2019-03-31] MEDS ORDERED: MIDAZOLAM 2 MG/2 ML VIAL ONE (12:02)
[2019-03-31] MEDS ORDERED: fentaNYL (PF) 50 MCG/ML 2 ML AMP ONE (12:02)
[2019-03-31] MEDS ORDERED: METOCLOPRAMIDE 5 MG/ML 2 ML VIAL IVP PRN (13:16)
[2019-03-31] MEDS: HYDROmorphone 0.5 MG/0.5 ML SYRINGE IVP PRN ×4 (13:32→14:19)
[2019-03-31] MEDS ORDERED: LACTATED RINGERS 1,000 ML IV ONE ×2 (13:57)
[2019-03-31 14:42] LABS: Basophils % (A) 0 %; Eosinophils % (A) 0 %; HCT 36.7 % (34.0-46.0); Lymphocytes # (A) 0.6 k/uL (1.0-4.8); Lymphocytes % (A) 6 %; MCH 27.2 pg (25.0-35.0); MCHC 29.9 g/dL (31.0-37.0); MCV 90.9 fL (80.0-100.0); Mean Platelet Volume 6.5; Monocytes # (A) 0.1 k/uL (0-1.0); Monocytes % (A) 1 %; Neutrophils # (A) 10.4 k/uL (1.3-7.7); Neutrophils % (A) 93 %; Platelet Count 434 k/uL (150-450); RBC 4.03 m/uL (3.80-5.40); RDW 13.4 % (11.5-15.5); WBC 11.2 k/uL (3.8-10.6)
[2019-03-31 14:49] LABS: Calcium 8.5 mg/dL (8.4-10.2); Potassium 5.1 mmol/L (3.5-5.1)
[2019-03-31] MEDS: D5-0.45% NACL WITH KCL 20MEQ/L 1,000 ML IV SCH ×2 (16:24→20:45)
[2019-03-31] MEDS: KETOROLAC 30 MG/ML 1 ML VIAL IVP PRN (16:44)
[2019-03-31] MEDS: HYDROmorphone 1 MG/ML 1 ML SYRINGE IVP PRN (23:11)
[2019-03-31] MEDS: SODIUM BICARBONATE TAB 650 MG TAB PO SCH (23:41)
[2019-04-01] MEDS: KETOROLAC 30 MG/ML 1 ML VIAL IVP PRN ×2 (02:51→09:21)
[2019-04-01] MEDS: D5-0.45% NACL WITH KCL 20MEQ/L 1,000 ML IV SCH ×3 (05:49→14:53)
--- NOTE | 2019-04-01 07:01 | CONS ---
CONSULTATION DATE OF SERVICE: 03/31/2019 REASON FOR CONSULTATION: Advice regarding history of hypertension, multiple medical issues, requested by Dr. Resendiz. HISTORY OF PRESENT ILLNESS: This 64-year-old woman with a past medical history of hypertension, history of rheumatoid arthritis, history of renal injury, history of bowel resection, being followed by Dr. Lamar Antony in the outpatient setting has underwent reversal ileostomy by Dr. Resendiz. The patient tolerated the procedure well. There is no history of fever, rigors or chills. No history of headache, loss of consciousness, chest pain, palpitations at this time. PAST MEDICAL HISTORY: Hypertension, history of renal injury, rheumatoid arthritis, history of bowel resection, cholecystectomy, history ileostomy, colon resection, total hysterectomy, history of DJD. MEDICATIONS: Prior to admission include home medications are: Sodium bicarb 1300 mg t.i.d. ALLERGIES: None. FAMILY HISTORY: History of CAD, brain aneurysm in the family. SOCIAL HISTORY: History of smoking, history of THC. REVIEW OF SYSTEMS: ENT: No diminished vision. No diminished hearing. CARDIOVASCULAR: No angina. RESPIRATION: No cough. GASTROINTESTINAL: As mentioned earlier. no dysuria. NERVOUS SYSTEM: No numbness or weakness. ALLERGY/IMMUNOLOGY: No asthma or hayfever. MUSCULOSKELETAL: As mentioned earlier. HEMATOLOGY/ONCOLOGY: No history of anemia. ENDOCRINE: No history of diabetes or hypothyroidism. CONSTITUTIONAL: As mentioned earlier. DERMATOLOGY: Negative. RHEUMATOLOGY negative. PSYCHIATRY as mentioned earlier. PHYSICAL EXAMINATION: The patient is alert and oriented times three. Pulse 116, blood pressure 130/69, respiration 17, temperature 98.2, pulse ox 94% on room air. HEENT: Conjunctivae normal. Oral mucosa moist. NECK is no jugular venous distention. No carotid bruit. No lymph node enlargement. Cardiovascular system: S1, S2 muffled. No S3, no S4. RESPIRATORY: Breath sounds diminished in the bases. Scattered rhonchi and crackles. ABDOMEN: Soft, status post surgery. No mass palpable. LEGS: No edema. No swelling. NERVOUS SYSTEM: Higher functions as mentioned earlier. Moves all 4 limbs. No focal motor or sensory deficits. LYMPHATICS: No lymph nodes palpable in the neck, axillae or groin. SKIN: No ulcer, no rashes and no bleeding. JOINTS: No active deforming arthropathy. LAB STUDIES: WBC 11.2, hemoglobin 11. Sodium 139, potassium 5.1. The CO2 is 15, creatinine 3.78. ASSESSMENT: 1. Status post reversal of ileostomy. 2. History of bowel resection. 3. Chronic kidney disease stage 3 to 4. 4. Increased WBC. 5. History of hypertension. 6. History rheumatoid arthritis. 7. 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 8. History of bowel resection. 9. History of ileostomy. 10.History of continued nicotine dependence. 11.History of THC. 12.FULL CODE. RECOMMENDATIONS AND DISCUSSION: In this 64-year-old woman who presented with multiple medical issues, at this time I recommend to continue current medications, management and symptomatic treatment. Resume the home medications. DVT prophylaxis. Incentive spirometry. Otherwise, I would recommend continue the sodium bicarb once the patient is p.o. We will continue. I would recommend monitor the labs on a daily basis and continue to monitor. We will follow the patient closely with you. Further recommendations to follow. The patient may be asked to follow with Dr. Antony and Dr. Salazar closely in the outpatient setting. Thank you Dr. Resendiz for letting us participate in the care of this patient. MMODL / IJN: [id number] /
[2019-04-01] MEDS: ALVIMOPAN 12 MG CAPSULE PO SCH ×2 (07:22→20:25)
[2019-04-01] MEDS: SODIUM BICARBONATE TAB 650 MG TAB PO SCH ×3 (07:23→20:26)
[2019-04-01 07:36] LABS: Calcium 8.1 mg/dL (8.4-10.2); Potassium 5.3 mmol/L (3.5-5.1)
[2019-04-01 07:54] LABS: Basophils % (A) 0 %; Eosinophils # (A) 0.1 k/uL (0-0.7); Eosinophils % (A) 1 %; HCT 29.8 % (34.0-46.0); Lymphocytes # (A) 1.9 k/uL (1.0-4.8); Lymphocytes % (A) 15 %; MCH 28.4 pg (25.0-35.0); MCHC 31.5 g/dL (31.0-37.0); MCV 90.2 fL (80.0-100.0); Mean Platelet Volume 7.4; Monocytes # (A) 0.6 k/uL (0-1.0); Monocytes % (A) 5 %; Neutrophils # (A) 9.8 k/uL (1.3-7.7); Neutrophils % (A) 79 %; Platelet Count 391 k/uL (150-450); RBC 3.31 m/uL (3.80-5.40); RDW 13.2 % (11.5-15.5); WBC 12.4 k/uL (3.8-10.6)
[2019-04-01 07:57] LABS: HGB 9.4 gm/dL (11.4-16.0)
--- NOTE | 2019-04-01 11:41 | P.PN ---
Subjective Progress Note Date: 04/01/19 CHIEF COMPLAINT: History of diverticulitis HISTORY OF PRESENT ILLNESS: Patient is status post reversal of ileostomy. Postoperative day #1. Patient examined sprain the bedside. She reports her pain is tolerable. She is tolerating clear liquid diet. Denies nausea or vomiting. Passing minimal amounts of flatus. Vital signs stable. She is afebrile. PHYSICAL EXAM: VITAL SIGNS: Reviewed. GENERAL: Well-developed in no acute distress. HEENT: No sclera icterus. Extraocular movements grossly intact. Moist buccal mucosa. Head is atraumatic, normocephalic. ABDOMEN: Soft. Nondistended. Dressing noted. Appropriate surgical tender ness. NEUROLOGIC: Alert and oriented. Cranial nerves II through XII grossly intact. ASSESSMENT: 1. History of diverticulitis with previous low anterior resection and protective ileostomy, status post reversal of ileostomy PLAN: -Continue clear liquid diet. Await bowel function -Pain control -Activity as tolerated -Incentive spirometer 10 times an hour while awake Nurse practitioner note has been reviewed by physician. Signing provider agrees with the documented findings, assessment, and plan of care. Objective - Vital Signs Vital signs: Vital Signs Temp 98.7 F 04/01/19 07:00 Pulse 85 04/01/19 07:00 Resp 16 04/01/19 08:00 BP 111/64 04/01/19 07:00 Pulse Ox 99 04/01/19 07:00 Intake & Output 03/31/19 04/01/19 04/01/19 18:59 06:59 18:59 Intake Total 1350 525 Output Total 110 150 Balance 1240 -150 525 Weight 53.977 kg Intake: IV 1350 Oral 525 Output: Urine 100 150 Estimated Blood Loss 10 Other: Voiding Method Indwelling Catheter Indwelling Catheter # Voids 1 - Labs CBC & Chem 7: 04/01/19 07:14 04/01/19 07:14 Labs: Abnormal Lab Results - Last 24 Hours (Table) 03/31/19 03/31/19 04/01/19 Range/Units 14:20 14:20 07:14 WBC 11.2 H 12.4 H (3.8-10.6) k/uL RBC 3.31 L (3.80-5.40) m/uL Hgb 11.0 L 9.4 L D (11.4-16.0) gm/dL Hct 29.8 L (34.0-46.0) % MCHC 29.9 L (31.0-37.0) g/dL Neutrophils # 10.4 H 9.8 H (1.3-7.7) k/uL Lymphocytes # 0.6 L (1.0-4.8) k/uL Sodium (137-145) mmol/L Potassium (3.5-5.1) mmol/L Chloride 113 H (98-107) mmol/L Carbon Dioxide 15 L (22-30) mmol/L BUN 22 H (7-17) mg/dL Creatinine 3.78 H (0.52-1.04) mg/dL Glucose 142 H (74-99) mg/dL Calcium (8.4-10.2) mg/dL 04/01/19 Range/Units 07:14 WBC (3.8-10.6) k/uL RBC (3.80-5.40) m/uL Hgb (11.4-16.0) gm/dL Hct (34.0-46.0) % MCHC (31.0-37.0) g/dL Neutrophils # (1.3-7.7) k/uL Lymphocytes # (1.0-4.8) k/uL Sodium 136 L (137-145) mmol/L Potassium 5.3 H (3.5-5.1) mmol/L Chloride 113 H (98-107) mmol/L Carbon Dioxide 16 L (22-30) mmol/L BUN 26 H (7-17) mg/dL Creatinine 3.98 H (0.52-1.04) mg/dL Glucose (74-99) mg/dL Calcium 8.1 L (8.4-10.2) mg/dL
[2019-04-01] MEDS: HYDROmorphone 0.5 MG/0.5 ML SYRINGE IVP PRN (11:47)
[2019-04-01] MEDS ORDERED: DEXTROSE 5%-0.9% NACL 1,000 ML IV SCH (15:30)
--- NOTE | 2019-04-01 15:50 | PN ---
PROGRESS NOTE DATE OF SERVICE: 04/01/2019 This 64-year-old woman who was admitted after reversal of ileostomy is being closely monitored. No chest pain. No palpitations. No fever. The patient's creatinine is still elevated but stable at this time. The patient is being closely monitored. Past medical history reviewed. PHYSICAL EXAMINATION: Alert and oriented x3. Pulse is 85, blood pressure 111/64, respirations 16, temperature 98.7, pulse ox 99% on room air. HEENT: Conjunctivae normal. NECK: No jugular venous distention. CARDIOVASCULAR SYSTEM: S1, S2 muffled. RESPIRATORY SYSTEM: Breath sounds diminished at the bases. No rhonchi. No crackles. ABDOMEN: Soft. Status post surgery. LEGS: No edema. No swelling. NERVOUS SYSTEM: No focal deficit. LABS: WBC 12.4, hemoglobin 9.4. Sodium 136, potassium 5.3. REVIEW OF SYSTEMS: CARDIOVASCULAR SYSTEM: No angina, palpitations. RESPIRATORY SYSTEM: As mentioned earlier. GI: As mentioned earlier. : As mentioned earlier. NERVOUS SYSTEM: No numbness, weakness. CURRENT MEDICATIONS: Reviewed. They include: 1. Entereg 12 mg p.o. b.i.d. 2. Dilaudid p.r.n. 3. Toradol 30 mg q.6 p.r.n. 4. Lactated Ringer's. 5. Reglan. 6. Zofran. 7. Sodium bicarb. ASSESSMENT: 1. Status post reversal of ileostomy. 2. History of bowel resection. 3. Chronic kidney disease, stage III to IV. 4. Increased white count. 5. History of hypertension. 6. History of rheumatoid arthritis. 7. 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 8. History of bowel resection. 9. History of ileostomy. 10.History of continued nicotine dependence. 11.History of tetrahydrocannabinol. 12.FULL CODE. RECOMMENDATIONS AND DISCUSSION: I recommend to continue current medications, continue with the monitoring, symptomatic treatment. I would recommend avoiding nephrotoxic medications. Closely monitor. Otherwise, I would recommend continuing with Dilaudid. Guarded prognosis because of multiple complex medical issues. We will continue to monitor. Further recommendations to follow. MMODL / IJN: [id number] /
[2019-04-01] MEDS: PANTOPRAZOLE 40 MG/10 ML VIAL IVP SCH (15:52)
[2019-04-01] MEDS: HYDROcodone/APAP 7.5-325MG 1 EACH TAB PO PRN (18:27)
[2019-04-01 18:44] LABS: Appearance,Urine Turbid (Clear); Bacteria,Urine Rare /hpf; Bilirubin,Urine Negative (Negative); Blood,Urine Trace (Negative); Budding Yeast,Urine Few /hpf; Color,Urine Yellow; Glucose,Urine (UA) Negative (Negative); Ketones,Urine Negative (Negative); Leukocyte Esterase,Urine Large (Negative); Mucus,Urine Rare /hpf; Nitrite,Urine Negative (Negative); PH, Urine 5.5 (5.0-8.0); Protein,Urine Trace (Negative); RBC,Urine 14 /hpf (0-5); Specific Gravity,Urine 1.011 (1.001-1.035); Squamous Epithelial Cell,Urine 43 /hpf (0-4); Urobilinogen,Urine <2.0 mg/dL (<2.0); WBC,Urine 114 /hpf (0-5)
[2019-04-01] MEDS: DEXTROSE 5% IN WATER 1,000 ML with SODIUM BICARB (1 MEQ/ML) 150 ML IV SCH (20:25)
[2019-04-01] MEDS: LACTATED RINGERS 1,000 ML IV SCH (20:27)
--- NOTE | 2019-04-01 21:02 | CONS ---
CONSULTATION REASON FOR CONSULT: Renal failure. HISTORY OF PRESENT ILLNESS: The patient is a 64-year-old female who was admitted to the hospital for reversal of ileostomy which was done previously, mostly at an outside facility with resultant significant acute kidney injury which appears to have been mostly prerenal and associated with continued hypotension and hypovolemia. The patient also had metabolic acidosis on her last admission in February. At that time, she was started on IV fluids which were continued as outpatient. Serum creatinine had improved from around 7 mg/dL to about 3.9 and 3.7 mg/dL. The patient was admitted. The patient had reversal of ileostomy done yesterday. She denies any significant complaints. She currently has a PICC line. She remains acidotic. The patient is also supposed to be maintained on p.o. sodium bicarb as outpatient. No complaints of diarrhea at this time. PAST MEDICAL HISTORY: History of diverticulitis requiring colectomy and ileostomy. History of hypertension, rheumatoid arthritis. SOCIAL HISTORY: Positive for smoking with history of use of marijuana. MEDICATIONS: Medications prior to admission included sodium bicarb. REVIEW OF SYSTEMS: As per HPI. Other systems negative. EXAMINATION: Patient is comfortable, awake, not in any acute distress. Blood pressure is 111/64, heart rate 85 per minute. She is afebrile. Examination of the heart S1, S2. Examination of the lungs, bilateral breath sounds are heard. ABDOMEN: Soft. Mild tenderness is noted at the surgical site. Exam of lower extremities shows no evidence of edema. PODIATRIC MEDICINE PROFESSOR exam grossly intact. LAB: Show sodium 136, potassium 5.3, chloride 113, CO2 is 16, BUN 26, creatinine 3.98, hemoglobin 9.4 g/dL. ASSESSMENT: 1. Acute kidney injury, mostly prerenal with improvement in renal function with outpatient IV fluids with serum creatinine decreasing from around 7.4 last month to about 3.7 now. I will continue with IV hydration. No nephrotoxic agents on board. I do see that she was on Toradol which is appropriately discontinued now. We need to avoid NSAIDs. 2. Metabolic acidosis secondary to increased GI fluid loss. However, patient is currently status post reversal of ileostomy. I will add IV bicarb as her acidosis is slightly worse. The patient is not taking the oral sodium bicarb at this time. 3. Status post reversal of ileostomy. 4. History of diverticulitis with colonic resection and ileostomy done earlier this year. PLAN: Start IV bicarb repeat labs in a.m. Continue to avoid nephrotoxic agents. MMODL / IJN: [id number] /
[2019-04-02] MEDS: HYDROmorphone 1 MG/ML 1 ML SYRINGE IVP PRN (00:49)
[2019-04-02 07:05] LABS: Calcium 8.3 mg/dL (8.4-10.2); Potassium 4.5 mmol/L (3.5-5.1)
[2019-04-02 07:06] LABS: Basophils % (A) 0 %; Eosinophils # (A) 0.5 k/uL (0-0.7); Eosinophils % (A) 4 %; HCT 32.1 % (34.0-46.0); HGB 10.3 gm/dL (11.4-16.0); Hypochromasia Slight; Lymphocytes # (A) 1.9 k/uL (1.0-4.8); Lymphocytes % (A) 16 %; MCH 28.9 pg (25.0-35.0); MCV 90.4 fL (80.0-100.0); Mean Platelet Volume 7.5; Monocytes # (A) 0.6 k/uL (0-1.0); Monocytes % (A) 5 %; Neutrophils # (A) 8.6 k/uL (1.3-7.7); Neutrophils % (A) 74 %; Platelet Count 409 k/uL (150-450); RBC 3.55 m/uL (3.80-5.40); RDW 13.2 % (11.5-15.5); WBC 11.7 k/uL (3.8-10.6)
[2019-04-02] MEDS: SODIUM BICARBONATE TAB 650 MG TAB PO SCH (08:32)
[2019-04-02] MEDS: PANTOPRAZOLE 40 MG/10 ML VIAL IVP SCH (08:35)
[2019-04-02] MEDS: DEXTROSE 5% IN WATER 1,000 ML with SODIUM BICARB (1 MEQ/ML) 150 ML IV SCH ×2 (08:39→16:30)
[2019-04-02] MEDS: HYDROcodone/APAP 7.5-325MG 1 EACH TAB PO PRN ×2 (09:04→16:43)
--- NOTE | 2019-04-02 12:06 | P.PN ---
Subjective Progress Note Date: 04/02/19 Seen and examined for the follow-up of acute kidney injury. Lying comfortable in the bed no nausea vomiting diarrhea. Creatinine still elevated. Had reversal of ileostomy done. Urine looks dirty but denies obvious symptoms. Objective - Vital Signs Vital signs: Vital Signs Temp 98.3 F 04/02/19 07:00 Pulse 79 04/02/19 07:00 Resp 18 04/02/19 07:00 BP 151/70 04/02/19 07:00 Pulse Ox 97 04/02/19 07:00 Intake & Output 04/01/19 04/02/19 04/02/19 18:59 06:59 18:59 Intake Total 525 Output Total 100 Balance 525 -100 Intake: Oral 525 Output: Urine 100 Other: Voiding Method Indwelling Catheter Bedside Commode # Voids 1 - Exam No acute distress S1-S2 heard Lungs clear Abdomen distended No edema - Labs CBC & Chem 7: 04/02/19 06:29 04/02/19 06:29 Labs: Abnormal Lab Results - Last 24 Hours (Table) 04/01/19 04/02/19 04/02/19 Range/Units 18:00 06:29 06:29 WBC 11.7 H (3.8-10.6) k/uL RBC 3.55 L (3.80-5.40) m/uL Hgb 10.3 L (11.4-16.0) gm/dL Hct 32.1 L (34.0-46.0) % Neutrophils # 8.6 H (1.3-7.7) k/uL Sodium 136 L (137-145) mmol/L Carbon Dioxide 20 L (22-30) mmol/L BUN 23 H (7-17) mg/dL Creatinine 3.87 H (0.52-1.04) mg/dL Calcium 8.3 L (8.4-10.2) mg/dL Urine Appearance Turbid H (Clear) Urine Protein Trace H (Negative) Urine Blood Trace H (Negative) Ur Leukocyte Esterase Large H (Negative) Urine RBC 14 H (0-5) /hpf Urine WBC 114 H (0-5) /hpf Urine WBC Clumps Many H (None) /hpf Ur Squamous Epith Cells 43 H (0-4) /hpf Urine Bacteria Rare H (None) /hpf Urine Mucus Rare H (None) /hpf Urine Yeast (Budding) Few H (None) /hpf Assessment and Plan Assessment: #1 nonoliguric acute kidney injury suspect prerenal/septic ATN. Creatinine stable. Baseline creatinine around 3.5-3.7 as outpatient. #2 metabolic acidosis secondary to acute kidney injury improving. #3 hypertension with episodes of hypotension. #4 complicated UTI #5 status post ileostomy reversal Plan: #1 renal function stable. Discussed about kidney biopsy but patient refused and she also admits that she refused in the past. #2 continue with bicarb drip. #3 avoid nephrotoxic agents and hypotensive episodes. #4 add ceftriaxone for complicated UTI. #5 labs in the morning #6 discontinue oral bicarbonate. Can be restarted once patient's IV bicarbonate is discontinued.
--- NOTE | 2019-04-02 13:44 | P.PN ---
Subjective Progress Note Date: 04/02/19 CHIEF COMPLAINT: Status post ileostomy reversal HISTORY OF PRESENT ILLNESS: The patient is a 64-year-old female status post ileostomy reversal 2 days ago. She is passing flatus. No bowel movements. She is tolerating clears. "I'm hungry and wants normal food.". She is overall angry that she is not on normal diet. ROS: No reports of nausea and vomiting. No fevers or chills. No new chest pain. No productive sputum PHYSICAL EXAM: VITAL SIGNS: Reviewed CONSTITUTIONAL: Well developed and in no acute distress. EYES: Conjuctivae without sclera icterus. Extraocular movements grossly intact. HEAD, EARS, NOSE, THROAT: Moist buccal mucosa. Head is atraumatic, normocephalic. Hears conversational speech. No nasal drainage. RESPIRATORY: Non-labored respirations and equal bilateral excursions. CARDIOVASCULAR: Palpable 2+ radial pulses. ABDOMEN: Dressing dry and intact. Minimal serosanguineous shadowing 2 cm lower third of incision MUSCULOSKELETAL: No gross deformity of the lower extremities noted. No clubbing. No cyanosis. SKIN: Good skin turgor. Well perfused. NEUROLOGIC: Cranial nerves I through XII grossly intact. No focal or lateralizing signs. PSYCH: Alert and oriented to person, place and time. CLINICAL LABS: White blood cell count elevated over 11,000 ASSESSMENT: 1. Status post ileostomy reversal PLAN: 1. Continue clears until bowel movement prior to advancement diet secondary to high risk surgery. Objective - Vital Signs Vital signs: Vital Signs Temp 98.3 F 04/02/19 07:00 Pulse 79 04/02/19 07:00 Resp 18 04/02/19 07:00 BP 151/70 04/02/19 07:00 Pulse Ox 97 04/02/19 07:00 Intake & Output 04/01/19 04/02/19 04/02/19 18:59 06:59 18:59 Intake Total 525 Output Total 100 Balance 525 -100 Intake: Oral 525 Output: Urine 100 Other: Voiding Method Indwelling Catheter Bedside Commode # Voids 1 - Labs CBC & Chem 7: 04/02/19 06:29 04/02/19 06:29 Labs: Abnormal Lab Results - Last 24 Hours (Table) 04/01/19 04/02/19 04/02/19 Range/Units 18:00 06:29 06:29 WBC 11.7 H (3.8-10.6) k/uL RBC 3.55 L (3.80-5.40) m/uL Hgb 10.3 L (11.4-16.0) gm/dL Hct 32.1 L (34.0-46.0) % Neutrophils # 8.6 H (1.3-7.7) k/uL Sodium 136 L (137-145) mmol/L Carbon Dioxide 20 L (22-30) mmol/L BUN 23 H (7-17) mg/dL Creatinine 3.87 H (0.52-1.04) mg/dL Calcium 8.3 L (8.4-10.2) mg/dL Urine Appearance Turbid H (Clear) Urine Protein Trace H (Negative) Urine Blood Trace H (Negative) Ur Leukocyte Esterase Large H (Negative) Urine RBC 14 H (0-5) /hpf Urine WBC 114 H (0-5) /hpf Urine WBC Clumps Many H (None) /hpf Ur Squamous Epith Cells 43 H (0-4) /hpf Urine Bacteria Rare H (None) /hpf Urine Mucus Rare H (None) /hpf Urine Yeast (Budding) Few H (None) /hpf Assessment and Plan (1) Status post closure of ileostomy Current Visit: Yes Status: Acute Code(s): Z98.890 - OTHER SPECIFIED POSTPROCEDURAL STATES SNOMED Code(s): 45359244472328857
--- NOTE | 2019-04-02 20:53 | PN ---
PROGRESS NOTE DATE OF SERVICE: 04/02/2019 This 64-year-old woman was admitted after surgery, had a renal failure. Patient also had evidence of UTI. Patient is being closely monitored. This patient is asking for more food. Surgery and Nephrology following the patient closely. The creatinine is elevated at 3.87. PAST MEDICAL HISTORY: Reviewed. REVIEW OF SYSTEMS: CARDIOVASCULAR: No angina. RESPIRATORY: As mentioned earlier. GI: As mentioned earlier. : As mentioned earlier. NERVOUS SYSTEM: No numbness. Generalized weakness. CURRENT MEDICATIONS: 1. [place] 7.5. 2. Rocephin 1 g daily. 3. Dilaudid 0.5 mg p.r.n. 4. Reglan. 5. Zofran. 6. Protonix. PHYSICAL EXAM: The patient is alert, oriented x3. The pulse is 79, blood pressure 150/70, respiration 18, temperature is 98.2, pulse ox 97% on room air. HEENT: Conjunctivae normal. Oral mucosa moist. NECK: No jugular venous distention. No lymph node enlargement. CARDIOVASCULAR: S1, S2. RESPIRATORY: Diminished breath sounds at the bases. A few scattered rhonchi. ABDOMEN: Soft, nontender. Status post surgery. LEGS: No swelling. NERVOUS SYSTEM: No focal deficits. LABS: WBC 7.2, hemoglobin 10.2, sodium 136. ASSESSMENT: 1. Status post reversal of ileostomy. 2. History of bowel resection. 3. Chronic kidney disease stage 3 to 4. 4. Increased WBC. 5. Hypertension. 6. History of rheumatoid arthritis. 7. 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 8. History of bowel resection. 9. History of ileostomy. 10.History of continued ongoing nicotine dependence. 11.History of THC. 12.Hyponatremia. 13.Mild hyperkalemia secondary to renal failure. 14.Increased WBC. 15.Anemia of chronic disease. 16.Acute urinary tract infection present on admission. RECOMMENDATIONS AND DISCUSSION: In this 64-year-old woman who presented with multiple complex medical issues, we will monitor the patient closely, continue the current medications. Urine culture. IV antibiotics. Closely follow with Nephrology. Continue the rest of medications. DVT prophylaxis. Proton pump inhibitors. Guarded prognosis because of multiple complex medical issues. Further recommendations to follow. MMODL / IJN: [id number] /
[2019-04-02] MEDS: HEPARIN SODIUM,PORCINE 5,000 UNIT/ML 1 ML VIAL SQ SCH (21:04)
[2019-04-02] MEDS: LACTATED RINGERS 1,000 ML IV SCH (21:05)
[2019-04-03] MEDS: ONDANSETRON 4 MG/2 ML VIAL IVP PRN ×2 (03:21→13:32)
[2019-04-03] MEDS: DEXTROSE 5% IN WATER 1,000 ML with SODIUM BICARB (1 MEQ/ML) 150 ML IV SCH ×2 (03:22→07:58)
[2019-04-03] MEDS: HYDROmorphone 0.5 MG/0.5 ML SYRINGE IVP PRN ×2 (04:49→14:30)
[2019-04-03 07:32] LABS: Basophils % (A) 0 %; Eosinophils # (A) 0.4 k/uL (0-0.7); Eosinophils % (A) 5 %; HCT 29.9 % (34.0-46.0); HGB 9.9 gm/dL (11.4-16.0); Lymphocytes % (A) 11 %; MCH 28.9 pg (25.0-35.0); MCV 87.5 fL (80.0-100.0); Mean Platelet Volume 7.3; Monocytes # (A) 0.3 k/uL (0-1.0); Monocytes % (A) 3 %; Neutrophils # (A) 6.8 k/uL (1.3-7.7); Neutrophils % (A) 80 %; Platelet Count 381 k/uL (150-450); RBC 3.41 m/uL (3.80-5.40); WBC 8.5 k/uL (3.8-10.6)
[2019-04-03 07:41] LABS: Calcium 7.4 mg/dL (8.4-10.2); Potassium 4.7 mmol/L (3.5-5.1)
[2019-04-03] MEDS: PANTOPRAZOLE 40 MG/10 ML VIAL IVP SCH (07:58)
[2019-04-03] MEDS: HEPARIN SODIUM,PORCINE 5,000 UNIT/ML 1 ML VIAL SQ SCH ×2 (07:59→23:26)
--- NOTE | 2019-04-03 09:41 | P.PN ---
Subjective Progress Note Date: 04/03/19 Seen and examined for the follow-up of acute kidney injury. Lying comfortable in the bed no nausea vomiting diarrhea. Had reversal of ileostomy done. Urine looks dirty but denies obvious symptoms. Objective - Vital Signs Vital signs: Vital Signs Temp 98.1 F 04/03/19 07:00 Pulse 91 04/03/19 07:00 Resp 12 04/03/19 07:00 BP 152/71 04/03/19 07:00 Pulse Ox 91 L 04/03/19 07:00 Intake & Output 04/02/19 04/03/19 04/03/19 18:59 06:59 18:59 Intake Total 1070 Balance 1070 Intake: Oral 1070 Other: Voiding Method Bedside Commode # Voids 2 3 - Exam No acute distress S1-S2 heard Lungs clear Abdomen distended No edema - Labs CBC & Chem 7: 04/03/19 06:47 04/03/19 06:47 Labs: Abnormal Lab Results - Last 24 Hours (Table) 04/03/19 04/03/19 Range/Units 06:47 06:47 RBC 3.41 L (3.80-5.40) m/uL Hgb 9.9 L (11.4-16.0) gm/dL Hct 29.9 L (34.0-46.0) % Sodium 136 L (137-145) mmol/L Carbon Dioxide 32 H (22-30) mmol/L BUN 22 H (7-17) mg/dL Creatinine 3.52 H (0.52-1.04) mg/dL Calcium 7.4 L (8.4-10.2) mg/dL Microbiology - Last 24 Hours (Table) 04/02/19 13:20 Urine Culture - Preliminary Urine,Voided Assessment and Plan Assessment: #1 nonoliguric acute kidney injury suspect prerenal/septic ATN. Creatinine stable and improving. Baseline creatinine around 3.5-3.7 as outpatient. #2 metabolic acidosis secondary to acute kidney injury improving. #3 hypertension with episodes of hypotension. #4 complicated UTI #5 status post ileostomy reversal Plan: #1 renal function stable. Discussed about kidney biopsy but patient refused and she also admits that she refused in the past. #2 avoid nephrotoxic agents and hypotensive episodes. #3 continue with ceftriaxone for complicated UTI. #4 discontinue bicarbonate drip and check labs in the morning.
--- NOTE | 2019-04-03 13:43 | P.PN ---
Subjective Progress Note Date: 04/03/19 CHIEF COMPLAINT: Status post ileostomy reversal HISTORY OF PRESENT ILLNESS: The patient is a 64-year-old female status post ileostomy. She reports new onset crampy abdominal pain along the midline. She is still passing flatus. Her abdominal pain is moderate to severe and cramping. She can barely tolerate her clear liquids. "I feel like puking." ROS: No fevers or chills. No new chest pain. No productive sputum PHYSICAL EXAM: VITAL SIGNS: Reviewed CONSTITUTIONAL: Well developed and in no acute distress. EYES: Conjuctivae without sclera icterus. Extraocular movements grossly intact. HEAD, EARS, NOSE, THROAT: Moist buccal mucosa. Head is atraumatic, normocephalic. Hears conversational speech. No nasal drainage. RESPIRATORY: Non-labored respirations and equal bilateral excursions. CARDIOVASCULAR: Palpable 2+ radial pulses. ABDOMEN: Dressing dry and intact. No peritonitis. Soft. Tender at epigastricum MUSCULOSKELETAL: No gross deformity of the lower extremities noted. No clubbing. No cyanosis. SKIN: Good skin turgor. Well perfused. NEUROLOGIC: Cranial nerves I through XII grossly intact. No focal or lateralizing signs. PSYCH: Alert and oriented to person, place and time. CLINICAL LABS: White blood cell count elevated over 11,000 now normal at 8500 ASSESSMENT: 1. Status post ileostomy reversal 2. New abdominal cramping PLAN: 1. Will obtain abdominal x-rays. 2. No advancement of diet Objective - Vital Signs Vital signs: Vital Signs Temp 98.1 F 04/03/19 07:00 Pulse 91 04/03/19 07:00 Resp 12 04/03/19 07:00 BP 152/71 04/03/19 07:00 Pulse Ox 91 L 04/03/19 07:00 Intake & Output 04/02/19 04/03/19 04/03/19 18:59 06:59 18:59 Intake Total 1070 Balance 1070 Intake: Oral 1070 Other: Voiding Method Bedside Commode # Voids 2 3 - Labs CBC & Chem 7: 04/03/19 06:47 04/03/19 06:47 Labs: Abnormal Lab Results - Last 24 Hours (Table) 04/03/19 04/03/19 Range/Units 06:47 06:47 RBC 3.41 L (3.80-5.40) m/uL Hgb 9.9 L (11.4-16.0) gm/dL Hct 29.9 L (34.0-46.0) % Sodium 136 L (137-145) mmol/L Carbon Dioxide 32 H (22-30) mmol/L BUN 22 H (7-17) mg/dL Creatinine 3.52 H (0.52-1.04) mg/dL Calcium 7.4 L (8.4-10.2) mg/dL Microbiology - Last 24 Hours (Table) 04/02/19 13:20 Urine Culture - Preliminary Urine,Voided Assessment and Plan (1) Status post closure of ileostomy Current Visit: Yes Status: Acute Code(s): Z98.890 - OTHER SPECIFIED POSTPROCEDURAL STATES SNOMED Code(s): [id number]
--- NOTE | 2019-04-03 14:39 | XR ---
EXAMINATION TYPE: XR abdomen acute w cxr DATE OF EXAM: 04/03/2019 COMPARISON: Chest radiograph 03/07/2019 HISTORY: Abdominal pain, recent surgery TECHNIQUE: Single frontal view of the chest. Supine view of the abdomen. FINDINGS: CHEST: Patchy airspace opacities in the right lower lobe. Blunted right costophrenic angle. Left lung is grossly clear. No pneumothorax. Cardiomediastinal silhouette is normal. ABDOMEN: Crescentic lucency under the left hemidiaphragm compatible with free intraperitoneal air. r is present throughout nondilated small and large bowel loops. Surgical clips project over the left lower quadrant. Surgical bladimir noted projecting over the midline and right mid abdomen. Degenerative changes of the lumbar spine. IMPRESSION: 1. Free intraperitoneal air, not an unusual finding in a postoperative patient. 2. No signs of bowel obstruction. Gaseous distention of small and large bowel loops may relate to gen eralized ileus. 3. Right lower lobe airspace consolidation concerning for infectious process. Associated small right pleural effusion.
--- NOTE | 2019-04-03 19:55 | PN ---
PROGRESS NOTE DATE OF SERVICE: 04/03/2019 This 64-year-old woman was admitted with reversal of ileostomy, is being closely monitored. No chest pain. No palpitations. No fever. The patient also had renal failure and acute abdominal series was recommended by surgery. Patient also had features of UTI. Patient is on IV antibiotics as well. Acute abdomen series showed no evidence of significant bowel obstruction. Right lower lobe airspace consolidation was suspected. Occasional cough is reported. PAST MEDICAL HISTORY: Reviewed. REVIEW OF SYSTEMS: CARDIOVASCULAR SYSTEM: No angina. RESPIRATORY: As mentioned earlier. : As mentioned earlier. : No dysuria or retention. NERVOUS SYSTEM: No numbness or weakness. CURRENT MEDICATIONS: 1. [place] 7.5 q.6h. 2. Rocephin 1 g IV daily. 3. Dilaudid 0.5 q.3 p.r.n. 4. Reglan 10 mg q.6h p.r.n. 5. Protonix 40 mg IV daily. PHYSICAL EXAM: Patient alert, oriented x3. Pulse 84, blood pressure 140/70, respirations 16, temperature 98.2, pulse ox 91% on room air. HEENT: Conjunctivae normal. Oral mucosa moist. NECK: No jugular venous distention. No lymph node enlargement. CARDIOVASCULAR: S1, S2. RESPIRATORY: Diminished breath sounds at the bases. A few scattered rhonchi and crackles. ABDOMEN: Soft. Status post surgery. LEGS: No edema, no swelling. NERVOUS SYSTEM: No focal deficits. LABS: WBC 8.2, hemoglobin 9.9, sodium 136, creatinine 2.52. UA noted. ASSESSMENT: 1. Status post reversal of ileostomy. 2. Rule out right lower lobe pneumonia. 3. Acute urinary tract infection. 4. History of bowel resection. 5. Chronic kidney disease stage 3 to 4. 6. Increased WBC. 7. Hypertension. 8. History of rheumatoid arthritis. 9. 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 10.History of bowel resection. 11.History ileostomy. 12.History of continued ongoing nicotine dependence. 13.History of THC. 14.Hyponatremia. 15.Mild hyperkalemia secondary to renal failure, present on admission. 16.Increased WBC. 17.Anemia of chronic disease. RECOMMENDATIONS AND DISCUSSION: Recommend to continue current medications, continue to monitor. Continue with IV antibiotics. I would also recommend to add a course of bronchodilator treatments and spirometry, chest x-ray to rule out the possibility of pneumonia. Otherwise, continue to monitor. Closely follow with Surgery with DVT prophylaxis and proton pump inhibitors. Further recommendations to follow. MMODL / IJN: [id number] /
[2019-04-04] MEDS: LACTATED RINGERS 1,000 ML IV SCH (00:30)
[2019-04-04] MEDS: HYDROcodone/APAP 7.5-325MG 1 EACH TAB PO PRN ×2 (00:30→14:49)
[2019-04-04 07:01] LABS: Basophils % (A) 0 %; Eosinophils # (A) 0.4 k/uL (0-0.7); Eosinophils % (A) 6 %; HCT 31.8 % (34.0-46.0); HGB 10.1 gm/dL (11.4-16.0); Lymphocytes % (A) 14 %; MCHC 31.9 g/dL (31.0-37.0); MCV 87.8 fL (80.0-100.0); Mean Platelet Volume 6.6; Monocytes # (A) 0.4 k/uL (0-1.0); Monocytes % (A) 5 %; Neutrophils # (A) 5.1 k/uL (1.3-7.7); Neutrophils % (A) 73 %; Platelet Count 371 k/uL (150-450); RBC 3.63 m/uL (3.80-5.40); RDW 13.2 % (11.5-15.5); WBC 6.9 k/uL (3.8-10.6)
[2019-04-04 07:12] LABS: Calcium 7.1 mg/dL (8.4-10.2); Potassium 3.8 mmol/L (3.5-5.1)
[2019-04-04 07:36] VITALS: RESP 17
[2019-04-04] MEDS: HEPARIN SODIUM,PORCINE 5,000 UNIT/ML 1 ML VIAL SQ SCH (09:34)
[2019-04-04] MEDS: PANTOPRAZOLE 40 MG/10 ML VIAL IVP SCH (09:42)
--- NOTE | 2019-04-04 12:17 | P.DS ---
Providers Date of admission: 03/31/19 08:51 Expected date of discharge: 04/04/19 Attending physician: Parish Resendiz Consults: 03/31/19 13:16 Consult Physician Routine Consulting Provider: Sarah Beltran Consult Reason/Comments: Medical management Do you want consulting provider notified?: Yes Primary care physician: Tammy Antony Hospital Course: 64-year-old female who underwent reversal of ileostomy. Patient is doing well postoperatively without any immediate complications. She is tolerating diet without nausea or vomiting. Passing flatus and having bowel movements. Pain controlled on oral medications. She is stable for discharge home today. Please see EMR for further hospital course details. Discharge Diagnosis: 1. History of diverticulitis with previous low anterior resection and protective ileostomy, status post reversal of ileostomy Nurse practitioner note has been reviewed by physician. Signing provider agrees with the documented findings, assessment, and plan of care. Plan - Discharge Summary Discharge Rx Participant: No New Discharge Prescriptions: New HYDROcodone/APAP 7.5-325MG [[place] 7.5-325] 1 tab PO Q6HR PRN 3 Days #12 tab PRN Reason: Pain No Action Sodium Bicarbonate Tab 1,300 mg PO TID Discharge Medication List Sodium Bicarbonate Tab 1,300 mg PO TID 03/29/19 [History] HYDROcodone/APAP 7.5-325MG [[place] 7.5-325] 1 tab PO Q6HR PRN 3 Days #12 tab [Rx] Follow up Appointment(s)/Referral(s): Parish Resendiz MD [STAFF PHYSICIAN] - 1 Week Activity/Diet/Wound Care/Special Instructions: [facility]- [phone] [address] while taking [place] No lifting over 10 pounds You may shower. No soaking or tub baths Very light activity until you are reevaluated at your follow up appointment with your surgeon
--- NOTE | 2019-04-04 14:00 | P.PN ---
Subjective This is a pleasant 64 years old female with past medical history of hypertension, rheumatoid arthritis.. Patient was admitted for reversal of ileos ariel . Today patient was lying in bed not in distress, she was complaining of some cough and clear phlegm, however she denies dyspnea. No chest pain. No abdominal pain, no bowel movement but she is passing gases, patient that is been advanced today by surgical team. Vitals stable and she is saturating 94% on room air, she is not tachypneic and not labored breathing, she is afebrile. Labs show no leukocytosis with WBC coming down to 6.9K, hemoglobin stable at 10.1, creatinine at baseline of 3.5 and patient has been already evaluated by vehicle cost engineer for acute kidney injury with creatinine was 3.9, however is back to baseline, patient has chronic kidney disease stage III. Patient is on ce ftriaxone for UTI. Objective - Vital Signs Vital signs: Vital Signs Temp 98.3 F 04/04/19 07:00 Pulse 87 04/04/19 08:30 Resp 17 04/04/19 08:30 BP 169/80 04/04/19 07:00 Pulse Ox 94 L 04/04/19 07:00 Intake & Output 04/03/19 04/04/19 04/04/19 18:59 06:59 18:59 Intake Total 250 Output Total 100 Balance 250 -100 Intake: Oral 250 Output: Urine 100 Other: Voiding Method Toilet Toilet # Voids 2 1 1 - Exam GENERAL: The patient is alert and oriented x3, not in any acute distress. Well developed, well nourished. HEENT: Pupils are round and equally reacting to light. EOMI. No scleral icterus. No conjunctival pallor. Normocephalic, atraumatic. No pharyngeal erythema. No thyromegaly. CARDIOVASCULAR: S1 and S2 present. No murmurs, rubs, or gallops. PULMONARY: Chest is clear to auscultation, no wheezing or crackles. ABDOMEN: Soft, nontender, nondistended, normoactive bowel sounds. No palpable organomegaly. MUSCULOSKELETAL: No joint swelling or deformity. EXTREMITIES: No cyanosis, clubbing, or pedal edema. NEUROLOGICAL: Gross neurological examination did not reveal any focal deficits. SKIN: No rashes. no petechiae. - Labs CBC & Chem 7: 04/04/19 06:23 04/04/19 06:23 Labs: Abnormal Lab Results - Last 24 Hours (Table) 04/04/19 04/04/19 Range/Units 06:23 06:23 RBC 3.63 L (3.80-5.40) m/uL Hgb 10.1 L (11.4-16.0) gm/dL Hct 31.8 L (34.0-46.0) % Carbon Dioxide 35 H (22-30) mmol/L BUN 18 H (7-17) mg/dL Creatinine 3.52 H (0.52-1.04) mg/dL Calcium 7.1 L (8.4-10.2) mg/dL Assessment and Plan Assessment: Recent history of diverticulosis status post bowel resection, admitted for reversal of ileostomy on 03/31/2019 Urinary tract infection Chronic kidney disease, stage 3-4 Acute kidney injury, improved Hypertension History of rheumatoid arthritis Plan: This is a pleasant 64 years old female who presents at for reversal ileostomy, she is doing well, she has some mild cough with phlegm, however she denies dyspnea or chest pain, she is saturating 94 on room air. Patient is afebrile with no leukocytosis, however she is on antibiotic for UTI, patient to continue with 3 more days of oral antibiotics. Patient can be given Ceftin. Surgical team are planning to discharge the patient's own. Patient was instructed to follow up with her PCP in one week when she is discharged DVT prophylaxis: Subcutaneous heparin GI prophylaxis: Protonix Thank you for consulting us
[2019-04-04 15:23] VITALS: BP 122/72; PULSE 100; TEMP 98.5
--- NOTE | 2019-04-04 19:01 | PN ---
PROGRESS NOTE The patient is seen for followup for acute kidney injury and chronic kidney disease. She is status post reversal of ileostomy with serum creatinine at about 3.5 mg/dL. Currently off IV fluids. PHYSICAL EXAMINATION: This morning blood pressure was 169/80, heart rate 87 per minute, patient is afebrile. Examination of the heart S1, S2. Examination of the lungs, bilateral breath sounds are heard. Abdomen is soft, nontender. Examination lower extremities shows no evidence of edema. ROLLED HAM LACER exam grossly intact. LABS: Show hemoglobin 10.1, sodium 138, potassium 3.8, BUN 18, creatinine 3.5. ASSESSMENT: 1. Acute kidney injury, prerenal, currently improved. 2. Chronic kidney disease, with creatinine now staying at about 3.5 mg/dL, stage 4-5, maintained on IV fluids as outpatient which I will continue until patient is seen for followup as outpatient. 3. Urinary tract infection with urine culture growing Enterococcus faecium, maintained on antibiotics. 4. Status post reversal of ileostomy. PLAN: Patient can be discharged. Follow up as outpatient in about 1-2 weeks. Continue with outpatient IV fluids. MMODL / IJN: [id number] /
--- NOTE | 2019-04-08 08:22 | CDI ---
Documentation Clarification Form Date: 04/08/19 From: Belkys Howard Phone: If you have a question about this query, please contact Chantelle Moody, Promotions Team Leader at [phone] between 8am and 5pm. Admit Date: 03/31/19 Discharge Date: 04/04/15 Patient Name: Mindi Cote Visit Number: [id number] ATTENTION: The Clinical Documentation Specialists (CDI) and [facility] Coding Staff appreciate your assistance in clarifying documentation. Please respond to the clarification below the line at the bottom and electronically sign. The CDI & [facility] Coding staff will review the response and follow-up if needed. Please note: Queries are made part of the Legal Health Record. If you have any questions, please contact the author of this message via ITS. Dear Dr. Parish Resendiz Rule out right lower lobe pneumonia was documented in Dr. Beltran's 04/03 progress note. Recommended chest x-ray to rule out the possibility of pneumonia. History/Risk Factors: Smoker Clinical Indicators: occasional cough, right lower lobe airspace consolidation suspected on abdominal series x-ray Vital signs: T. 98.8, P. 91, R 16, BP 143/66 WBC/Left shift: 12/5 - 11.2/93% X-ray: Abdominal series - right lower lobe airspace consolidation suspected Chest x-ray recommended by Dr. Beltran but not done Lung/Breathing assessment: Diminished breath sounds at the bases. A few scattered rhonchi and crackles. Treatment: On IV cefazolin and rocephin for UTI O2: 8 L/min by mask on 03/31 Breathing Tx: None In order to capture the severity of condition, please clarify if the condition signifies and you are treating for: Pneumonia ruled out Aspiration Pneumonia, identify if: Bacterial Pneumonia, specify causal organism (if known) Viral Pneumonia, specify casual organism (if known) Healthcare Acquired Pneumonia/Pneumonia, unspecified Other, please specify Unable to determine Present on Admission Yes, Pneumonia present on admission No, Pneumonia not present on admission Pneumonia ruled out- see addendum damaris REDDY
--- NOTE | 2019-04-11 17:43 | P.OP ---
Date of Procedure: 03/31/19 Preoperative Diagnosis: History of perforated diverticulitis Postoperative Diagnosis: History of perforated ovulates Procedure(s) Performed: Reversal of ileostomy Anesthesia: TIMI Surgeon: Parish Resendiz Estimated Blood Loss (ml): 10 Pathology: other (Ileum) Condition: stable Disposition: PACU Description of Procedure: The patient's placed the operative table in the supine position. She received general anesthesia. Her abdomen was prepped and draped usual fashion. The ronal ent ileostomy right lower quadrant. The abdomen was entered through midline incision. The adhesions to the anterior abdominal wall were lysed with sharp dissection. At this point the ileostomy was then transected at the fascial level using the GI stapler. The distal ileum was found. A [id number] functional end-to-end staple anastomosis created between the proximal and distal ileum. The staple anastomosis was performed using the ANNE and TA stapler. This was performed a [id number] functional end-to-end staple anastomosis. 3-0 GI silk sutures across stitch. The abdomen was irrigated is no bleeding seen. The fascia at the ileostomy site was then closed using 0 Ethibond suture. The fascia was then closed with looped #1 PDS suture. Skin was closed table. The ileostomy then dissected free using electrocautery and then the skin was closed with bladimir. Sterile dressings applied. Patient top she will was sent to recovery room in stable condition.
== END 2019-04-04 15:31 | disposition home health service (06) | DRG 329 ==
LOC: 2ORMAIN 08:51 → EDSTATUS 11:35 → 4SSUR 16:04
PROVIDERS: ADMIT Surgery; ATTEND Surgery
PROC: 0DQB0ZZ Repair Ileum, Open Approach (ICD-10-PCS; principal; 2019-03-31 11:35)
DX: Z43.2 Encounter for attention to ileostomy (principal); N17.0 Acute kidney failure with tubular necrosis; E87.1 Hypo-osmolality and hyponatremia; E87.2 Acidosis; N18.4 Chronic kidney disease, stage 4 (severe); N39.0 Urinary tract infection, site not specified; D63.8 Anemia in other chronic diseases classified elsewhere; I95.9 Hypotension, unspecified; F17.210 Nicotine dependence, cigarettes, uncomplicated; K57.90 Diverticulosis of intestine, part unspecified, without perforation or abscess without bleeding; E87.5 Hyperkalemia; B95.2 Enterococcus as the cause of diseases classified elsewhere; E86.1 Hypovolemia; R10.9 Unspecified abdominal pain; I12.9 Hypertensive chronic kidney disease with stage 1 through stage 4 chronic kidney disease, or unspecified chronic kidney disease; M06.9 Rheumatoid arthritis, unspecified; M19.90 Unspecified osteoarthritis, unspecified site; D72.829 Elevated white blood cell count, unspecified; Z87.19 Personal history of other diseases of the digestive system; Z90.49 Acquired absence of other specified parts of digestive tract; Z90.710 Acquired absence of both cervix and uterus; Z79.899 Other long term (current) drug therapy; Z96.698 Presence of other orthopedic joint implants; Z82.49 Family history of ischemic heart disease and other diseases of the circulatory system; Z83.3 Family history of diabetes mellitus
CPT/HCPCS: 74022; 80048; 80051; 81001; 82565; 84520; 85025; 86850; 86900; 86901; 87077; 87086; 87186; 88304

== ENCOUNTER 2019-05-03 14:26 | Inpatient (IN) | payer OTHER, MEDICARE ==
--- NOTE | 2019-05-03 14:44 | ED ---
General Adult HPI - General Source: patient, RN notes reviewed Mode of arrival: ambulatory Limitations: no limitations <Pk Mckeon - Last Filed: 05/03/19 14:44> <Piotr Brown - Last Filed: 05/03/19 17:46> - General Stated complaint: Low Calcium Time Seen by Provider: 05/03/19 14:43 - History of Present Illness Initial comments: This 64-year-old female presents emergency Department with chief complaint of low calcium. Patient labwork drawn yesterday. Patient was advised, emergency department by her home health care nurse for low calcium. Patient states she's never had any issues like this in the past. Patient states she feels very weak and rundown, complaint of cramping. Patient had ileostomy reversal one month ago. Patient have excessive diarrhea. He denies any nausea vomiting. No fevers or chills. (Pk Mckeon) This is a 64-year-old female who was at a past medical history significant for an ileostomy patient states she had the ostomy reversed by Dr. Resendiz one month ago. Patient states since then she has had abdominal cramping and constant diarrhea. Patient states throughout the month she's had low levels of potassium and sodium but she was told as of yesterday's blood draw that she has low calcium today. Patient states she feels extremely fatigued and tired but she has no areas of pain other than occasional cramping of the abdomen. Patient denies any fever chills per patient denies lightheadedness or dizziness. Patient denies any chest pain difficulty breathing or shortness of breath. Patient denies any vomiting. (Piotr Brown) - Related Data Home Medications Medication Instructions Recorded Confirmed Multivitamins, Thera [Multivitamin 1 tab PO DAILY 05/03/19 05/03/19 (formulary)] Allergies Allergy/AdvReac Type Severity Reaction Status Date / Time No Known Allergies Allergy Verified 05/03/19 16:55 Review of Systems ROS Other: All systems not noted in ROS Statement are negative. <Pk Mckeon - Last Filed: 05/03/19 14:44> ROS Other: All systems not noted in ROS Statement are negative. <Piotr Brown - Last Filed: 05/03/19 17:46> ROS Statement: Those systems with pertinent positive or pertinent negative responses have been documented in the HPI. 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 4 knuckles replaced, tendon transfer s,carpel tunnel ltl wrists Past Anesthesia/Blood Transfusion Reactions: No Reported Reaction Additional Past Anesthesia/Blood Transfusion Reaction / Comment(s): no problems with prior blood transfusion Past Psychological History: No Psychological Hx Reported Additional Psychological History / Comment(s): Lives with her significant other. Ongoing tobacco smoker. No experience. No international travel. Disabled Smoking Status: Current every day smoker Past Alcohol Use History: Occasional Additional Past Alcohol Use History / Comment(s): started smoking at age 12,<1ppd Past Drug Use History: Marijuana Additional Drug Use History / Comment(s): uses marijuana daily - Past Family History Father Family Medical History: Coronary Artery Disease (CAD) Mother Family Medical History: Hypertension Additional Family Medical History / Comment(s): brain aneurysm Brother(s) Family Medical History: Diabetes Mellitus <Pk Mckeon - Last Filed: 05/03/19 14:44> General Exam <Piotr Brown - Last Filed: 05/03/19 17:46> - General Exam Comments Initial Comments: GENERAL: Patient is well-developed and well-nourished. Patient is nontoxic and well- hydrated and is in mild distress. ENT: Neck is soft and supple. No significant lymphadenopathy is noted. Oropharynx is clear. Moist mucous membranes. Neck has full range of motion without eliciting any pain. EYES: The sclera were anicteric and conjunctiva were pink and moist. Extraocular movements were intact and pupils were equal round and reactive to light. Eyelids were unremarkable. PULMONARY: Unlabored respirations. Good breath sounds bilaterally. No audible rales rhonchi or wheezing was noted. CARDIOVASCULAR: There is a regular rate and rhythm without any murmurs gallops or rubs. ABDOMEN: Soft and nontender with normal bowel sounds. SKIN: Skin is clear with no lesions or rashes and otherwise unremarkable. NEUROLOGIC: Patient is alert and oriented x3. Cranial nerves II through XII are grossly intact. Motor and sensory are also intact. Normal speech, volume and content. Symmetrical smile. MUSCULOSKELETAL: Normal extremities with adequate strength and full range of motion. No lower extremity swelling or edema. No calf tenderness. LYMPHATICS: No significant lymphadenopathy is noted PSYCHIATRIC: Normal psychiatric evaluation. (Piotr Brown) Course Vital Signs 05/03/19 05/03/19 14:42 16:30 Temperature 97.9 F Pulse Rate 101 H 78 Respiratory 20 21 Rate Blood Pressure 125/79 159/79 O2 Sat by Pulse 99 99 Oximetry Medical Decision Making - Lab Data Result diagrams: 05/03/19 15:22 05/03/19 15:22 <Piotr Brown - Last Filed: 05/03/19 17:46> - Medical Decision Making EKG shows sinus rhythm at 91 bpm OR interval 210 QRS is 92 QT interval 382 QTC is 469. Patient's EKG shows T-wave inversions in V4 V5. Patient has no ST segment elevation or depression. Patient's magnesium was less than 0.4. Patient's calcium was 5.8. I replaced the magnesium with 4 g of magnesium sulfate and gave the patient calcium chloride for the low calcium. I spoke with Dr. Magallon she agreed to admit the patient admitted the patient wrote admitting orders. (Piotr Brown) - Lab Data Lab Results 05/03/19 05/03/19 05/03/19 Range/Units 15:22 15:22 15:22 WBC 9.4 (3.8-10.6) k/uL RBC 3.69 L (3.80-5.40) m/uL Hgb 10.1 L (11.4-16.0) gm/dL Hct 31.9 L (34.0-46.0) % MCV 86.4 (80.0-100.0) fL MCH 27.4 (25.0-35.0) pg MCHC 31.6 (31.0-37.0) g/dL RDW 14.5 (11.5-15.5) % Plt Count 517 H (150-450) k/uL Neutrophils % 56 % Lymphocytes % 31 % Monocytes % 4 % Eosinophils % 5 % Basophils % 1 % Neutrophils # 5.3 (1.3-7.7) k/uL Lymphocytes # 2.9 (1.0-4.8) k/uL Monocytes # 0.4 (0-1.0) k/uL Eosinophils # 0.5 (0-0.7) k/uL Basophils # 0.1 (0-0.2) k/uL Sodium 140 (137-145) mmol/L Potassium 3.9 (3.5-5.1) mmol/L Chloride 117 H (98-107) mmol/L Carbon Dioxide 12 L (22-30) mmol/L Anion Gap 11 mmol/L BUN 21 H (7-17) mg/dL Creatinine 2.00 H (0.52-1.04) mg/dL Est GFR (CKD-EPI)AfAm 30 (>60 ml/min/1.73 sqM) Est GFR (CKD-EPI)NonAf 26 (>60 ml/min/1.73 sqM) Glucose 88 (74-99) mg/dL Plasma Lactic Acid Al[place] 0.6 L (0.7-2.0) mmol/L Calcium 5.8 L* (8.4-10.2) mg/dL Magnesium <0.4 L* (1.6-2.3) mg/dL Total Bilirubin 0.4 (0.2-1.3) mg/dL AST 33 (14-36) U/L ALT 15 (4-34) U/L Alkaline Phosphatase 107 (38-126) U/L Total Protein 6.9 (6.3-8.2) g/dL Albumin 3.4 L (3.5-5.0) g/dL Urine Color Urine Appearance (Clear) Urine pH (5.0-8.0) Ur Specific [place] (1.001-1.035) Urine Protein (Negative) Urine Glucose (UA) (Negative) Urine Ketones (Negative) Urine Blood (Negative) Urine Nitrite (Negative) Urine Bilirubin (Negative) Urine Urobilinogen (<2.0) mg/dL Ur Leukocyte Esterase (Negative) Urine RBC (0-5) /hpf Urine WBC (0-5) /hpf Ur Squamous Epith Cells (0-4) /hpf Urine Mucus (None) /hpf 05/03/19 Range/Units 16:00 WBC (3.8-10.6) k/uL RBC (3.80-5.40) m/uL Hgb (11.4-16.0) gm/dL Hct (34.0-46.0) % MCV (80.0-100.0) fL MCH (25.0-35.0) pg MCHC (31.0-37.0) g/dL RDW (11.5-15.5) % Plt Count (150-450) k/uL Neutrophils % % Lymphocytes % % Monocytes % % Eosinophils % % Basophils % % Neutrophils # (1.3-7.7) k/uL Lymphocytes # (1.0-4.8) k/uL Monocytes # (0-1.0) k/uL Eosinophils # (0-0.7) k/uL Basophils # (0-0.2) k/uL Sodium (137-145) mmol/L Potassium (3.5-5.1) mmol/L Chloride (98-107) mmol/L Carbon Dioxide (22-30) mmol/L Anion Gap mmol/L BUN (7-17) mg/dL Creatinine (0.52-1.04) mg/dL Est GFR (CKD-EPI)AfAm (>60 ml/min/1.73 sqM) Est GFR (CKD-EPI)NonAf (>60 ml/min/1.73 sqM) Glucose (74-99) mg/dL Plasma Lactic Acid [place] (0.7-2.0) mmol/L Calcium (8.4-10.2) mg/dL Magnesium (1.6-2.3) mg/dL Total Bilirubin (0.2-1.3) mg/dL AST (14-36) U/L ALT (4-34) U/L Alkaline Phosphatase (38-126) U/L Total Protein (6.3-8.2) g/dL Albumin (3.5-5.0) g/dL Urine Color Yellow Urine Appearance Cloudy H (Clear) Urine pH 5.5 (5.0-8.0) Ur Specific [place] 1.020 (1.001-1.035) Urine Protein 1+ H (Negative) Urine Glucose (UA) Negative (Negative) Urine Ketones Negative (Negative) Urine Blood Negative (Negative) Urine Nitrite Negative (Negative) Urine Bilirubin Negative (Negative) Urine Urobilinogen 2.0 (<2.0) mg/dL Ur Leukocyte Esterase Negative (Negative) Urine RBC 22 H (0-5) /hpf Urine WBC 3 (0-5) /hpf Ur Squamous Epith Cells 2 (0-4) /hpf Urine Mucus Rare H (None) /hpf Critical Care Time Critical Care Time: Yes Total Critical Care Time: 30 <Piotr Brown - Last Filed: 05/03/19 17:46> Disposition <Pk Mckeon - Last Filed: 05/03/19 14:44> Time of Disposition: 17:46 <Piotr Brown - Last Filed: 05/03/19 17:46> Clinical Impression: Hypomagnesemia, Hypocalcemia Disposition: ADMITTED IP TO THIS HOSP Referrals: Tammy Antony MD [Primary Care Provider] - 1-2 days
[2019-05-03] MEDS ORDERED: SODIUM CHLORIDE 0.9% 1,000 ML IV ONE ×2 (15:06→17:46)
[2019-05-03 15:33] LABS: Basophils # (A) 0.1 k/uL (0-0.2); Basophils % (A) 1 %; Eosinophils # (A) 0.5 k/uL (0-0.7); Eosinophils % (A) 5 %; HCT 31.9 % (34.0-46.0); HGB 10.1 gm/dL (11.4-16.0); Lymphocytes # (A) 2.9 k/uL (1.0-4.8); Lymphocytes % (A) 31 %; MCH 27.4 pg (25.0-35.0); MCHC 31.6 g/dL (31.0-37.0); MCV 86.4 fL (80.0-100.0); Mean Platelet Volume 7.3; Monocytes # (A) 0.4 k/uL (0-1.0); Monocytes % (A) 4 %; Neutrophils # (A) 5.3 k/uL (1.3-7.7); Neutrophils % (A) 56 %; Platelet Count 517 k/uL (150-450); RBC 3.69 m/uL (3.80-5.40); RDW 14.5 % (11.5-15.5); WBC 9.4 k/uL (3.8-10.6)
[2019-05-03 15:44] LABS: ALT 15 U/L (4-34); AST 33 U/L (14-36); African American GFR (CKD) 30 (>60 ml/min/1.73 sqM); Albumin 3.4 g/dL (3.5-5.0); Alkaline Phosphatase 107 U/L (38-126); Anion Gap 11 mmol/L; Blood Urea Nitrogen 21 mg/dL (7-17); Carbon Dioxide 12 mmol/L (22-30); Chloride 117 mmol/L (98-107); Glucose 88 mg/dL (74-99); Non-African American GFR(CKD) 26 (>60 ml/min/1.73 sqM); Potassium 3.9 mmol/L (3.5-5.1); Sodium 140 mmol/L (137-145); Total Bilirubin 0.4 mg/dL (0.2-1.3); Total Protein 6.9 g/dL (6.3-8.2)
[2019-05-03 15:56] LABS: Calcium 5.8 mg/dL (8.4-10.2); Magnesium <0.4 mg/dL (1.6-2.3)
[2019-05-03] MEDS ORDERED: CALCIUM CHLORIDE 100 MG/ML 10 ML SYRINGE IVP STA (16:02)
[2019-05-03] MEDS: MAGNESIUM SULFATE-D5W PMX 1 GM in DEXTROSE/WATER 1 100ML.BAG IVPB SCH ×4 (16:25→21:17)
[2019-05-03 16:26] LABS: Appearance,Urine Cloudy (Clear); Bilirubin,Urine Negative (Negative); Blood,Urine Negative (Negative); Color,Urine Yellow; Glucose,Urine (UA) Negative (Negative); Ketones,Urine Negative (Negative); Leukocyte Esterase,Urine Negative (Negative); Mucus,Urine Rare /hpf; Nitrite,Urine Negative (Negative); PH, Urine 5.5 (5.0-8.0); Protein,Urine 1+ (Negative); RBC,Urine 22 /hpf (0-5); Squamous Epithelial Cell,Urine 2 /hpf (0-4); WBC,Urine 3 /hpf (0-5)
[2019-05-03] MEDS ORDERED: ONDANSETRON 4 MG/2 ML VIAL IVP PRN (18:24)
[2019-05-03] MEDS ORDERED: traMADol 50 MG TAB PO PRN (18:24)
[2019-05-03] MEDS ORDERED: MELATONIN 3 MG TABLET PO PRN (18:24)
[2019-05-03] MEDS ORDERED: NALOXONE 0.4 MG/ML 1 ML VIAL IV PRN (18:24)
[2019-05-03] MEDS ORDERED: ACETAMINOPHEN TAB 325 MG TAB PO PRN (18:24)
--- NOTE | 2019-05-03 18:30 | P.HPIM ---
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 In the ER she underwent extensive evaluation. On her initial vital signs are slightly tachycardic with a pulse rate of 101. Initial laboratory analysis showed a hemoglobin 10.1, platelets 517, chloride 117, carbon dioxide 12, BUN 21, creatinine 2 (which is below her baseline of 3.52), calcium 5.8, magnesium 0.4, and slightly low albumin at 3.4. She was started on calcium replacement. Arrangements were made for admission. Patient seen and examined at bedside in the emergency department with her present. She reports that since leaving the hospital in March she's had chronic diarrhea. She describes this as complete liquid with very small amounts of solid. She reports that she starts going to the bathroom at about midnight goes consistently only through 6 AM. This happens approximately 3-4 times. She does report that she is feeling weak and tired. Yesterday when she tried to get up she fell almost paralyzed. She isn't having increased cramping in her hands but does have a history of arthritis. She does report some abdominal cramping. She states she last followed Dr. flores approximately one week ago when she had her bladimir removed and was told everything looked good. She reports she's been keeping up with her diet and has had a normal appetite and fluid intake. She has been seeing Dr. Salazar from nephrology and has been u sing 1 L of normal saline every other day throughout the week. She denies any recent fevers or chills. She has not been having any antibiotics. She has no other complaints currently. She denies any strokelike symptoms and states she just feels weak all over. Records review was completed and the patient's recent hospital stay from 03/31 through 04/04/19 where she underwent an ileostomy reversal, was seen by nephrology and renal function with continuing to improve, and overall did well. Review of Systems Pertinent positives and negatives as discussed in HPI, a complete review of systems was performed and all other systems are negative. 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 4 knuckles replaced, tendon transfers,carpel tunnel ltl wrists Past Anesthesia/Blood Transfusion Reactions: No Reported Reaction Additional Past Anesthesia/Blood Transfusion Reaction / Comment(s): no problems with prior blood transfusion Past Psychological History: No Psychological Hx Reported Additional Psychological History / Comment(s): Lives with her significant other. Ongoing tobacco smoker. No experience. No international travel. Di sabled Smoking Status: Current every day smoker Past Alcohol Use History: Occasional Additional Past Alcohol Use History / Comment(s): started smoking at age 12,<1ppd Past Drug Use History: Marijuana Additional Drug Use History / Comment(s): uses marijuana daily Additional History: Lives with , no assistive devices, has chronic outpatient IV fluids - Past Family History Father Family Medical History: Coronary Artery Disease (CAD) Mother Family Medical History: Hypertension Additional Family Medical History / Comment(s): brain aneurysm Brother(s) Family Medical History: Diabetes Mellitus Medications and Allergies Home Medications Medication Instructions Recorded Confirmed Type Multivitamins, Thera [Multivitamin 1 tab PO DAILY 05/03/19 05/03/19 History (formulary)] Allergies Allergy/AdvReac Type Severity Reaction Status Date / Time No Known Allergies Allergy Verified 05/03/19 16:55 Physical Exam Osteopathic Statement: *. No significant issues noted on an osteopathic structural exam other than those noted in the History and Physical/Consult. Vitals: Vital Signs Temp Pulse Resp BP Pulse Ox 05/03/19 16:30 78 21 159/79 99 05/03/19 14:42 97.9 F 101 H 20 125/79 99 Intake and Output 05/03/19 05/03/19 05/03/19 06:59 14:59 22:59 Other: Weight 51.71 kg General: non toxic, no distress, appears at stated age, normal weight Derm: Coarse hair, no unusual rashes/lesions no unusual ecchymoses, warm, dry Head: atraumatic, normocephalic, symmetric Eyes: EOMI, no lid lag, anicteric sclera, pupils equal round reactive to light ENT: Nose and ears atraumatic, no thrush, no pharyngeal erythema Neck: No thyromegaly, no cervical lymphadenopathy, trachea midline, supple Mouth: no lip lesion, mucus membranes dry Cardiovascular: S1S2 reg, no murmur, positive posterior tibial pulse bilateral, no edema, capillary refill less than 2 seconds Lungs: CTA bilateral, no rhonchi, no rales , no accessory muscle use Abdominal: soft, nontender to palpation, no guarding, no appreciable organomegaly, normal bowel sounds Ext: no gross muscle atrophy, muscle strength 5 out of 5 in all 4 extremities grossly, no contractures, Neuro: CN II-XI grossly intact, light touch intact all 4 extremities, finger to nose within normal limits, negative chvostek sign Psych: Alert, oriented, appropriate affect Results CBC & Chem 7: 05/03/19 15:22 05/03/19 15:22 Labs: Abnormal Lab Results - Last 24 Hours (Table) 05/03/19 05/03/19 05/03/19 Range/Units 15:22 15:22 15:22 RBC 3.69 L (3.80-5.40) m/uL Hgb 10.1 L (11.4-16.0) gm/dL Hct 31.9 L (34.0-46.0) % Plt Count 517 H (150-450) k/uL Chloride 117 H (98-107) mmol/L Carbon Dioxide 12 L (22-30) mmol/L BUN 21 H (7-17) mg/dL Creatinine 2.00 H (0.52-1.04) mg/dL Plasma Lactic Acid Alireza 0.6 L (0.7-2.0) mmol/L Calcium 5.8 L* (8.4-10.2) mg/dL Magnesium <0.4 L* (1.6-2.3) mg/dL Albumin 3.4 L (3.5-5.0) g/dL Urine Appearance (Clear) Urine Protein (Negative) Urine RBC (0-5) /hpf Urine Mucus (None) /hpf 01/07/20 Range/Units 16:00 RBC (3.80-5.40) m/uL Hgb (11.4-16.0) gm/dL Hct (34.0-46.0) % Plt Count (150-450) k/uL Chloride (98-107) mmol/L Carbon Dioxide (22-30) mmol/L BUN (7-17) mg/dL Creatinine (0.52-1.04) mg/dL Plasma Lactic Acid Alireza (0.7-2.0) mmol/L Calcium (8.4-10.2) mg/dL Magnesium (1.6-2.3) mg/dL Albumin (3.5-5.0) g/dL Urine Appearance Cloudy H (Clear) Urine Protein 1+ H (Negative) Urine RBC 22 H (0-5) /hpf Urine Mucus Rare H (None) /hpf Comments: EKG was reviewed by myself revealed normal sinus rhythm with slight T-wave inversion but no QT prolongation. Assessment and Plan Assessment: Severe hypocalcemia and hypomagnesemia along with hyperchloremic metabolic acidosis -Status post 1 g of calcium, will repeat 1, 4 g of magnesium -IV fluids -Repeat ionized calcium in a.m. -Repeat BMP and magnesium at 10 PM -Start sodium bicarb drip -Consult nephrology -Likely secondary to severe diarrhea Hyperkalemia -Appears to be secondary to hemolysis -Stat recheck -Also should correct with sodium bicarb drip Diarrhea status post ileostomy reversal -Consult general surgery. If this is atypical for recovery from an ostomy reversal consider GI consultation for workup of causes of chronic diarrhea. -Also check C. diff with recent hospital stay though this appears inconsistent with C. diff colitis. Chronic kidney disease, improvement of creatinine -Avoid additional nephrotoxic agents -Continue with IV fluid supplementation -Repeat blood work in a.m. -Consult nephrology Hypertension per history -Not currently on medications -Follow blood pressures Anemia, chronic with thrombocytosis - check B12, folate, and iron studies The patient is admitted with an anticipated greater than 2 midnight stay for evaluation of severe hypocalcemia and hypomagnesemia. Surrogate decision-maker: CODE STATUS: Full, would not like to be kept alive on machines and tubes or life support long-term if no hope of meaningful recovery DVT prophylaxis: SCDs Discussed with: Patient, , ED physician Anticipated discharge date: 2- [address]: Home with home health A total of 65 minutes was spent on the care of this complex patient more than 50% of the time was spent in counseling and care coordination.
[2019-05-03] MEDS: DEXTROSE 5% IN WATER 1,000 ML with SODIUM BICARB (1 MEQ/ML) 150 ML IV SCH (18:53)
[2019-05-03] MEDS ORDERED: CALCIUM GLUCONATE 1 GM in SODIUM CHLORIDE 0.9% 100 ML IVPB ONE (19:30)
[2019-05-03 20:40] LABS: Calcium 6.9 mg/dL (8.4-10.2); Potassium 3.8 mmol/L (3.5-5.1)
[2019-05-04 00:04] LABS: Calcium 7.3 mg/dL (8.4-10.2); Potassium 3.5 mmol/L (3.5-5.1)
[2019-05-04] MEDS: DEXTROSE 5% IN WATER 1,000 ML with SODIUM BICARB (1 MEQ/ML) 150 ML IV SCH ×2 (02:58→11:08)
[2019-05-04 06:25] LABS: MCH 27.6 pg (25.0-35.0); MCHC 32.2 g/dL (31.0-37.0); MCV 85.9 fL (80.0-100.0); Mean Platelet Volume 7.3; Platelet Count 462 k/uL (150-450); RBC 3.03 m/uL (3.80-5.40); RDW 14.4 % (11.5-15.5); WBC 9.1 k/uL (3.8-10.6)
[2019-05-04 06:31] LABS: Ionized Calcium 4.3 mg/dL (4.5-5.3)
[2019-05-04 06:43] LABS: Albumin 2.5 g/dL (3.5-5.0); Calcium 6.9 mg/dL (8.4-10.2); Magnesium 1.7 mg/dL (1.6-2.3); Phosphorus 2.9 mg/dL (2.5-4.5); Potassium 3.4 mmol/L (3.5-5.1); Total Bilirubin 0.3 mg/dL (0.2-1.3); Total Protein 5.4 g/dL (6.3-8.2)
[2019-05-04 06:54] LABS: HGB 8.4 gm/dL (11.4-16.0)
[2019-05-04] MEDS ORDERED: POTASSIUM CHLORIDE ER 20 MEQ TAB.ER PO STA (07:20)
[2019-05-04] MEDS ORDERED: MAGNESIUM SULFATE-D5W PMX 1 GM in DEXTROSE/WATER 1 100ML.BAG IVPB ONE (07:30)
[2019-05-04] MEDS ORDERED: CALCIUM GLUCONATE 1 GM in SODIUM CHLORIDE 0.9% 100 ML IVPB ONE (08:00)
[2019-05-04] MEDS: MULTIVITAMINS, THERA 1 EACH TAB PO SCH (08:56)
[2019-05-04] MEDS: NICOTINE 14MG/24HR PATCH TRANSDERM SCH ×2 (08:57→09:06)
--- NOTE | 2019-05-04 10:04 | P.NPCON ---
History of Present Illness - Reason for Consult acute renal failure, metabolic acidosis - History of Present Illness Reason for consultation: Acute kidney injury and electrolyte imbalance History of present illness: Patient is a 64-year-old female seen in renal consultation for acute kidney injury and electrolyte imbalance. Patient was admitted in February 2019 at developed severe acute kidney injury. However she improved with IV hydration and did not require renal replacement therapy. Since then her renal function has been gradually improving. Creatinine is down to 1.77 today. Patient presented to the hospital due to diarrhea started a few days ago. Patient states she's been having abdominal discomfort and intermittent diarrhea since she had reversal of colostomy on 03/31/2019. Hold the last few days she admits to having constant diarrhea. Oral intake has also been poor. Patient states she did try Imodium patient did not provide any significant relief. Patient did tolerate breakfast this morning and diarrhea has slowed down. Patient was noted to be severely acidotic with bicarb level of 12. Her magnesium level was undetectable and calcium level was 5.8. Magnesium and calcium have potassium replaced. She is currently maintained on bicarb drip. She denies chest pain or shortness of breath. Denies use of nonsteroidals. No vomiting. No history of diabetes. No family history of renal disease. Vital signs are stable. General: The patient appeared well nourished and normally developed. HEENT: Head exam is unremarkable. Neck is without jugular venous distension. LUNGS: Lungs are clear to auscultation and percussion. Breath sounds decreased. HEART: Rate and Rhythm are regular. First and second heart sounds normal. No murmurs, rubs or gallops. ABDOMEN: Abdominal exam reveals normal bowel sounds. Non-tender and non- distended. No evidence of peritonitis. EXTREMITITES: No clubbing, cyanosis, or edema. 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 4 knuckles replaced, tendon transfers,carpel tunnel ltl wrists Past Anesthesia/Blood Transfusion Reactions: No Reported Reaction Additional Past Anesthesia/Blood Transfusion Reaction / Comment(s): no problems with prior blood transfusion Past Psychological History: No Psychological Hx Reported Additional Psychological History / Comment(s): Lives with her significant other. Ongoing tobacco smoker. No experience. No international travel. Disabled Smoking Status: Current every day smoker Past Alcohol Use History: Occasional Additional Past Alcohol Use History / Comment(s): started smoking at age 12,<1ppd Past Drug Use History: Marijuana Additional Drug Use History / Comment(s): uses marijuana daily - Past Family History Father Family Medical History: Coronary Artery Disease (CAD) Mother Family Medical History: Hypertension Additional Family Medical History / Comment(s): brain aneurysm Brother(s) Family Medical History: Diabetes Mellitus Medications and Allergies Home Medications Medication Instructions Recorded Confirmed Type Multivitamins, Thera [Multivitamin 1 tab PO DAILY 05/03/19 05/03/19 History (formulary)] Allergies Allergy/AdvReac Type Severity Reaction Status Date / Time No Known Allergies Allergy Verified 05/03/19 16:55 Physical Exam Vitals: Vital Signs Temp Pulse Pulse Resp BP BP Pulse Ox 05/04/19 08:15 98.7 F 89 16 130/61 99 05/04/19 03:43 97 18 05/04/19 03:42 98.6 F 97 18 146/76 99 05/03/19 23:21 97.8 F 89 18 145/69 99 05/03/19 22:35 76 16 125/66 98 05/03/19 19:26 86 16 131/84 98 05/03/19 16:30 78 21 159/79 99 05/03/19 14:42 97.9 F 101 H 20 125/79 99 Intake and Output 05/03/19 05/04/19 05/04/19 22:59 06:59 14:59 Intake Total 600 100 Output Total 1 Balance 600 99 Intake: Intake, IV Titration 600 100 Amount Calcium Gluconate 1 gm In 100 Sodium Chloride 0.9% 100 ml @ 100 mls/hr IVPB ONCE ONE Rx#:[id number] Sodium Chloride 0.9% 1, 600 000 ml @ 75 mls/hr IV . [id number] ONE Rx#:[id number] Output: Urine/Stool Mix 1 Other: Voiding Method Toilet Toilet Weight 51.3 kg Results - Lab Results Most recent lab results Calcium 6.9 mg/dL (8.4-10.2) L 05/04/19 06:01 Phosphorus 2.9 mg/dL (2.5-4.5) 05/04/19 06:01 Magnesium 1.7 mg/dL (1.6-2.3) 05/04/19 06:01 Magnesium 1.7 mg/dL (1.6-2.3) 05/04/19 06:01 05/04/19 06:01 05/04/19 06:01 Assessment and Plan Plan: Assessment: 1. Acute kidney injury mostly prerenal secondary to intravascular volume depletion from diarrhea, improving with IV hydration. Creatinine 1.77 today. 2. Metabolic acidosis secondary to acute kidney injury and GI losses. 3. Hypocalcemia secondary to parathyroid hormone resistance from severe hyp omagnesemia. Better post replacement. Corrected calcium near 8. 4. Severe hypomagnesemia secondary to diarrhea. 5. Hypokalemia secondary to intracellular shifting from IV bicarb. Plan: Discontinue bicarbonate drip. Start normal saline at 75 mL an hour. Add oral sodium bicarbonate. Check PTH and vitamin D level. Add oral magnesium oxide. Replace potassium. 40 mEq today. Repeat electrolytes in the morning. Thank you for the consultation. I will continue to follow patient with you during her hospital stay.
[2019-05-04] MEDS: SODIUM CHLORIDE 0.9% 1,000 ML IV SCH ×2 (10:20→20:49)
[2019-05-04] MEDS: SODIUM BICARBONATE TAB 650 MG TAB PO SCH ×2 (10:23→20:49)
[2019-05-04] MEDS: MAGNESIUM OXIDE 400 MG TAB PO SCH ×2 (10:23→20:49)
--- NOTE | 2019-05-04 13:54 | P.GSCN ---
History of Present Illness Consult date: 05/04/19 Reason for Consult: Ileostomy reversal, diarrhea Requesting physician: Catalina Magallon History of present illness: CHIEF COMPLAINT: Ileostomy reversal, diarrhea HISTORY OF PRESENT ILLNESS: 64 year female who underwent reversal of ileostomy with Dr. Peñaloza on 03/31/2019. Patient is admitted to the hospital with electrolyte abnormalities. Patient reports she has had diarrhea since being discharged from the hospital. She reports 8-10 episodes a day. She reports only 1 episode of diarrhea this morning. Denies abdominal pain. Denies nausea or vomiting. Reports good appetite at home. PAST MEDICAL HISTORY: See list. PAST SURGICAL HISTORY: See list. SOCIAL HISTORY: No illicit drug use. REVIEW OF SYSTEMS: CONSTITUTIONAL: Denies fever or chills. HEENT: Denies blurred vision, vision changes, or eye pain. Denies hemoptysis CARDIOVASCULAR: Denies chest pain or pressure. RESPIRATORY: No shortness of breath. GASTROINTESTINAL: Refer to HPI for pertinent findings HEMATOLOGIC: Denies bleeding disorders. GENITOURINARY: Denies any blood in urine. SKIN: Denies pruitis. Denies rash. PHYSICAL EXAM: VITAL SIGNS: Reviewed. GENERAL: Well-developed in no acute distress. HEENT: No sclera icterus. Extraocular movements grossly intact. Moist buccal mucosa. Head is atraumatic, normocephalic. ABDOMEN: Soft. Nondistended. Nontender. Incision healing nicely without drainage or redness. NEUROLOGIC: Alert and oriented. Cranial nerves II through XII grossly intact. LABORATORY DATA: WBC 9.1. Hemoglobin 8.4. Sodium 140. Potassium 3.4. BUN 19. Creatinine 1.77. Lactic acid 0.6. Calcium 6.9. Magnesium 1.7. ASSESSMENT: 1. Diarrhea 2. Hypomagnesemia 3. Hypocalcemia 4. History of ileostomy reversal, 03/31/2019 PLAN: -Replace electrolytes per internal medicine -Case discussed with Dr. Peñaloza who states it can be normal for patient to have loose stools after ileostomy reversal. Check Cdiff. If negative, may begin immodium to decrease stool frequency. Will also check stool culture. Nurse practitioner note has been reviewed by physician. Signing provider agrees with the documented findings, assessment, and plan of care. 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 4 knuckles replaced, tendon transfers,carpel tunnel ltl wrists Past Anesthesia/Blood Transfusion Reactions: No Reported Reaction Additional Past Anesthesia/Blood Transfusion Reaction / Comm: no problems with prior blood transfusion Past Psychological History: No Psychological Hx Reported Additional Psychological History / Comment(s): Lives with her significant other. Ongoing tobacco smoker. No experience. No international travel. Disabled Smoking Status: Current every day smoker Past Alcohol Use History: Occasional Additional Past Alcohol Use History / Comment(s): started smoking at age 12,<1ppd Past Drug Use History: Marijuana Additional Drug Use History / Comment(s): uses marijuana daily - Past Family History Father Family Medical History: Coronary Artery Disease (CAD) Mother Family Medical History: Hypertension Additional Family Medical History / Comment(s): brain aneurysm Brother(s) Family Medical History: Diabetes Mellitus Medications and Allergies Home Medications Medication Instructions Recorded Confirmed Type Multivitamins, Thera [Multivitamin 1 tab PO DAILY 05/03/19 05/03/19 History (formulary)] Allergies Allergy/AdvReac Type Severity Reaction Status Date / Time No Known Allergies Allergy Verified 05/03/19 16:55 Surgical - Exam Vital Signs Temp Pulse Resp BP Pulse Ox 97.9 F 101 H 20 125/79 99 05/03/19 14:42 05/03/19 14:42 05/03/19 14:42 05/03/19 14:42 05/03/19 14:42 Results - Labs 05/04/19 06:01 05/04/19 06:01 Abnormal Lab Results - Last 24 Hours (Table) 05/03/19 05/03/19 05/03/19 Range/Units 15:22 15:22 15:22 RBC 3.69 L (3.80-5.40) m/uL Hgb 10.1 L (11.4-16.0) gm/dL Hct 31.9 L (34.0-46.0) % Plt Count 517 H (150-450) k/uL Potassium (3.5-5.1) mmol/L Chloride 117 H (98-107) mmol/L Carbon Dioxide 12 L (22-30) mmol/L BUN 21 H (7-17) mg/dL Creatinine 2.00 H (0.52-1.04) mg/dL Glucose (74-99) mg/dL Plasma Lactic Acid Alireza 0.6 L (0.7-2.0) mmol/L Calcium 5.8 L* (8.4-10.2) mg/dL Ionized Calcium Jolanta (4.5-5.3) mg/dL Magnesium <0.4 L* (1.6-2.3) mg/dL Total Protein (6.3-8.2) g/dL Albumin 3.4 L (3.5-5.0) g/dL Urine Appearance (Clear) Urine Protein (Negative) Urine RBC (0-5) /hpf Urine Mucus (None) /hpf 05/03/19 05/03/19 05/03/19 Range/Units 16:00 19:51 23:28 RBC (3.80-5.40) m/uL Hgb (11.4-16.0) gm/dL Hct (34.0-46.0) % Plt Count (150-450) k/uL Potassium (3.5-5.1) mmol/L Chloride 118 H 113 H (98-107) mmol/L Carbon Dioxide 16 L 16 L (22-30) mmol/L BUN 20 H 18 H (7-17) mg/dL Creatinine 1.94 H 1.83 H (0.52-1.04) mg/dL Glucose 114 H 120 H (74-99) mg/dL Plasma Lactic Acid Alireza (0.7-2.0) mmol/L Calcium 6.9 L 7.3 L (8.4-10.2) mg/dL Ionized Calcium Jolanta (4.5-5.3) mg/dL Magnesium (1.6-2.3) mg/dL Total Protein (6.3-8.2) g/dL Albumin (3.5-5.0) g/dL Urine Appearance Cloudy H (Clear) Urine Protein 1+ H (Negative) Urine RBC 22 H (0-5) /hpf Urine Mucus Rare H (None) /hpf 05/04/19 05/04/19 Range/Units 06:01 06:01 RBC 3.03 L (3.80-5.40) m/uL Hgb 8.4 L D (11.4-16.0) gm/dL Hct 26.0 L (34.0-46.0) % Plt Count 462 H (150-450) k/uL Potassium 3.4 L (3.5-5.1) mmol/L Chloride 110 H (98-107) mmol/L Carbon Dioxide 21 L (22-30) mmol/L BUN 18 H (7-17) mg/dL Creatinine 1.77 H (0.52-1.04) mg/dL Glucose 116 H (74-99) mg/dL Plasma Lactic Acid Alireza (0.7-2.0) mmol/L Calcium 6.9 L (8.4-10.2) mg/dL Ionized Calcium Jolanta 4.3 L (4.5-5.3) mg/dL Magnesium (1.6-2.3) mg/dL Total Protein 5.4 L (6.3-8.2) g/dL Albumin 2.5 L (3.5-5.0) g/dL Urine Appearance (Clear) Urine Protein (Negative) Urine RBC (0-5) /hpf Urine Mucus (None) /hpf Diabetes panel 05/03/19 05/03/19 05/03/19 Range/Units 15:22 19:51 23:28 Sodium 140 141 138 (137-145) mmol/L Potassium 3.9 3.8 3.5 (3.5-5.1) mmol/L Chloride 117 H 118 H 113 H (98-107) mmol/L Carbon Dioxide 12 L 16 L 16 L (22-30) mmol/L BUN 21 H 20 H 18 H (7-17) mg/dL Creatinine 2.00 H 1.94 H 1.83 H (0.52-1.04) mg/dL Glucose 88 114 H 120 H (74-99) mg/dL Calcium 5.8 L* 6.9 L 7.3 L (8.4-10.2) mg/dL AST 33 (14-36) U/L ALT 15 (4-34) U/L Alkaline Phosphatase 107 (38-126) U/L Total Protein 6.9 (6.3-8.2) g/dL Albumin 3.4 L (3.5-5.0) g/dL 05/04/19 Range/Units 06:01 Sodium 140 (137-145) mmol/L Potassium 3.4 L (3.5-5.1) mmol/L Chloride 110 H (98-107) mmol/L Carbon Dioxide 21 L (22-30) mmol/L BUN 18 H (7-17) mg/dL Creatinine 1.77 H (0.52-1.04) mg/dL Glucose 116 H (74-99) mg/dL Calcium 6.9 L (8.4-10.2) mg/dL AST 22 (14-36) U/L ALT 12 (4-34) U/L Alkaline Phosphatase 96 (38-126) U/L Total Protein 5.4 L (6.3-8.2) g/dL Albumin 2.5 L (3.5-5.0) g/dL Thyroid panel 05/04/19 Range/Units 06:01 TSH 0.477 (0.465-4.680) mIU/L Calcium panel 05/03/19 05/03/19 05/03/19 Range/Units 15:22 19:51 23:28 Calcium 5.8 L* 6.9 L 7.3 L (8.4-10.2) mg/dL Ionized Calcium Jolanta (4.5-5.3) mg/dL Phosphorus (2.5-4.5) mg/dL Albumin 3.4 L (3.5-5.0) g/dL 05/04/19 Range/Units 06:01 Calcium 6.9 L (8.4-10.2) mg/dL Ionized Calcium Jolanta 4.3 L (4.5-5.3) mg/dL Phosphorus 2.9 (2.5-4.5) mg/dL Albumin 2.5 L (3.5-5.0) g/dL Pituitary panel 05/03/19 05/03/19 05/03/19 Range/Units 15:22 19:51 23:28 Sodium 140 141 138 (137-145) mmol/L Potassium 3.9 3.8 3.5 (3.5-5.1) mmol/L Chloride 117 H 118 H 113 H (98-107) mmol/L Carbon Dioxide 12 L 16 L 16 L (22-30) mmol/L BUN 21 H 20 H 18 H (7-17) mg/dL Creatinine 2.00 H 1.94 H 1.83 H (0.52-1.04) mg/dL Glucose 88 114 H 120 H (74-99) mg/dL Calcium 5.8 L* 6.9 L 7.3 L (8.4-10.2) mg/dL TSH (0.465-4.680) mIU/L 05/04/19 Range/Units 06:01 Sodium 140 (137-145) mmol/L Potassium 3.4 L (3.5-5.1) mmol/L Chloride 110 H (98-107) mmol/L Carbon Dioxide 21 L (22-30) mmol/L BUN 18 H (7-17) mg/dL Creatinine 1.77 H (0.52-1.04) mg/dL Glucose 116 H (74-99) mg/dL Calcium 6.9 L (8.4-10.2) mg/dL TSH 0.477 (0.465-4.680) mIU/L Adrenal panel 05/03/19 05/03/19 05/03/19 Range/Units 15:22 19:51 23:28 Sodium 140 141 138 (137-145) mmol/L Potassium 3.9 3.8 3.5 (3.5-5.1) mmol/L Chloride 117 H 118 H 113 H (98-107) mmol/L Carbon Dioxide 12 L 16 L 16 L (22-30) mmol/L BUN 21 H 20 H 18 H (7-17) mg/dL Creatinine 2.00 H 1.94 H 1.83 H (0.52-1.04) mg/dL Glucose 88 114 H 120 H (74-99) mg/dL Calcium 5.8 L* 6.9 L 7.3 L (8.4-10.2) mg/dL Total Bilirubin 0.4 (0.2-1.3) mg/dL AST 33 (14-36) U/L ALT 15 (4-34) U/L Alkaline Phosphatase 107 (38-126) U/L Total Protein 6.9 (6.3-8.2) g/dL Albumin 3.4 L (3.5-5.0) g/dL 05/04/19 Range/Units 06:01 Sodium 140 (137-145) mmol/L Potassium 3.4 L (3.5-5.1) mmol/L Chloride 110 H (98-107) mmol/L Carbon Dioxide 21 L (22-30) mmol/L BUN 18 H (7-17) mg/dL Creatinine 1.77 H (0.52-1.04) mg/dL Glucose 116 H (74-99) mg/dL Calcium 6.9 L (8.4-10.2) mg/dL Total Bilirubin 0.3 (0.2-1.3) mg/dL AST 22 (14-36) U/L ALT 12 (4-34) U/L Alkaline Phosphatase 96 (38-126) U/L Total Protein 5.4 L (6.3-8.2) g/dL Albumin 2.5 L (3.5-5.0) g/dL
--- NOTE | 2019-05-04 16:21 | P.PN ---
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 In the ER she underwent extensive evaluation. On her initial vital signs are slightly tachycardic with a pulse rate of 101. Initial laboratory analysis showed a hemoglobin 10.1, platelets 517, chloride 117, carbon dioxide 12, BUN 21, creatinine 2 (which is below her baseline of 3.52), calcium 5.8, magnesium 0.4, and slightly low albumin at 3.4. She was started on calcium and magnesium replacement. Arrangements were made for admission. She was started on a bicarb gtt. Her Calcium and magnesium improved by the morning after admission and she was no longer acidotic. She was seen by nephrology and transitioned to normal saline. Patient seen and examined at bedside. She denies chest pain or shortness of breath. She is feeling much much better than yesterday and her weakness is greatly improved. She reports no additional episodes of diarrhea since last evening. No nausea or vomiting. She reports to me that she has seen Dr. Walsh in the past and has been evaluated for Crohn's disease, ulcerative colitis and other agents that were causing chronic diarrhea. She then was discovered to have her known fibrous tumor involving the uterus and the colon and ultimately had her diverting ileostomy and then reversal. It seems like she has had chronic diarrhea and high output through all these point in time. She has recurrent diarrhea I would suggest at least close thiamine. I have consulted GI. She is in agreement with plan. Objective - Vital Signs Vital signs: Vital Signs Temp 98.5 F 05/04/19 15:50 Pulse 85 05/04/19 15:50 Resp 16 05/04/19 15:50 BP 144/74 05/04/19 15:50 Pulse Ox 98 05/04/19 15:50 Intake & Output 05/03/19 05/04/19 05/04/19 18:59 06:59 18:59 Intake Total 600 336 Output Total 1 Balance 600 335 Weight 51.71 kg 51.3 kg Intake: Intake, IV Titration 600 100 Amount Calcium Gluconate 1 gm In 100 Sodium Chloride 0.9% 100 ml @ 100 mls/hr IVPB ONCE ONE Rx#:[id number] Sodium Chloride 0.9% 1, 600 000 ml @ 75 mls/hr IV . [id number] ONE Rx#:[id number] Oral 236 Output: Urine/Stool Mix 1 Other: Voiding Method Toilet Toilet - Exam General: ill appearing, no distress, appears at stated age, temporal wasting Derm: warm, dry Head: atraumatic, normocephalic, symmetric Eyes: EOMI, no lid lag, anicteric sclera Mouth: no lip lesion, mucus membranes moist Cardiovascular: S1S2 reg, no murmur, positive posterior tibial pulse bilateral, Lungs: CTA bilateral, no rhonchi, no rales , no accessory muscle use Abdominal: soft, nontender to palpation, no guarding, no appreciable organomegaly Ext: no gross muscle atrophy, no edema, no contractures Neuro: CN II-XI grossly intact, no focal neuro deficits Psych: Alert, oriented, appropriate affect - Labs CBC & Chem 7: 05/04/19 06:01 05/04/19 06:01 Labs: Abnormal Lab Results - Last 24 Hours (Table) 05/03/19 05/03/19 05/03/19 Range/Units 16:00 19:51 23:28 RBC (3.80-5.40) m/uL Hgb (11.4-16.0) gm/dL Hct (34.0-46.0) % Plt Count (150-450) k/uL Potassium (3.5-5.1) mmol/L Chloride 118 H 113 H (98-107) mmol/L Carbon Dioxide 16 L 16 L (22-30) mmol/L BUN 20 H 18 H (7-17) mg/dL Creatinine 1.94 H 1.83 H (0.52-1.04) mg/dL Glucose 114 H 120 H (74-99) mg/dL Calcium 6.9 L 7.3 L (8.4-10.2) mg/dL Ionized Calcium Jolanta (4.5-5.3) mg/dL Total Protein (6.3-8.2) g/dL Albumin (3.5-5.0) g/dL Urine Appearance Cloudy H (Clear) Urine Protein 1+ H (Negative) Urine RBC 22 H (0-5) /hpf Urine Mucus Rare H (None) /hpf 05/04/19 05/04/19 Range/Units 06:01 06:01 RBC 3.03 L (3.80-5.40) m/uL Hgb 8.4 L D (11.4-16.0) gm/dL Hct 26.0 L (34.0-46.0) % Plt Count 462 H (150-450) k/uL Potassium 3.4 L (3.5-5.1) mmol/L Chloride 110 H (98-107) mmol/L Carbon Dioxide 21 L (22-30) mmol/L BUN 18 H (7-17) mg/dL Creatinine 1.77 H (0.52-1.04) mg/dL Glucose 116 H (74-99) mg/dL Calcium 6.9 L (8.4-10.2) mg/dL Ionized Calcium Jolanta 4.3 L (4.5-5.3) mg/dL Total Protein 5.4 L (6.3-8.2) g/dL Albumin 2.5 L (3.5-5.0) g/dL Urine Appearance (Clear) Urine Protein (Negative) Urine RBC (0-5) /hpf Urine Mucus (None) /hpf Assessment and Plan Assessment: Hypocalcemia and hypomagnesemia, improving - replace calcium and magnesium, recheck in AM -IV fluids -nephro recs appreciated, case d/w Dr. Fonseca PTH and Vit D level pending hyperchloremic metabolic acidosis, improving - off bicar gtt on NS - nephro recs appreciated - repeat BMP in AM Diarrhea status post ileostomy reversal -Consult general surgery and GI for diarrhea -await C diff results Anemia, near baseline - check Iron Studies, B12, folate, TSH Chronic kidney disease, improvement of creatinine -Avoid additional nephrotoxic agents -Continue with IV fluid supplementation -Repeat blood work in a.m. -Consult nephrology Hypertension per history -Not currently on medications -Follow blood pressures Anemia, chronic with thrombocytosis - check B12, folate, and iron studies DVT prophylaxis: SCDs Discussed with: Patient, Gualberto Alvarado from GI Anticipated discharge date: 1-[address]: Home with home health A total of 65 minutes was spent on the care of this complex patient more than 50% of the time was spent in counseling and care coordination.
[2019-05-04 19:35] VITALS: RESP 18
[2019-05-04] MEDS ORDERED: LOPERAMIDE 2 MG CAP PO STA (22:00)
--- NOTE | 2019-05-05 00:04 | CONS ---
CONSULTATION DATE OF DICTATION: 05/04/2019 REASON FOR CONSULTATION: Chronic diarrhea. HISTORY OF PRESENT ILLNESS: The patient is a 64-year-old pleasant white female who was admitted to the hospital with chronic diarrhea of several months' duration. The patient has a past medical history that is significant for a uterine fibroid, for which she underwent surgery, at which time she also ended up having an ileostomy in April of 2018. Subsequently she underwent reversal of the ileostomy by Dr. Resendiz in March of 2019 because of persistent chronic diarrhea. After the surgery she continued to have persistent diarrhea with bowel movements anywhere from 10 to 12 daily, loose to watery in consistency. She was seen by a home health care nurse and was noted to have low calcium and magnesium and other electrolyte abnormalities and hence she was advised to go to the ER and subsequently admitted to the hospital for further evaluation. Since being in the hospital, her diarrhea has completely resolved. In fact, she said she had a solid bowel movement last night and none so far this morning. She denies any abdominal pain. She lost a total of 100 pounds since her surgery in April of this year, but she gained about 30 pounds in the last 2 months. She reports no rectal bleeding or melena. She reports no abdominal pain. No nausea or vomiting. PAST MEDICAL HISTORY: Her past medical history is significant for: 1. Hypertension. 2. Rheumatoid arthritis. 3. Chronic kidney disease. PAST SURGICAL HISTORY: 1. Cholecystectomy. 2. Hysterectomy. 3. Ileostomy at the time of a fibroid tumor removal in April of this year and followed by reversal of the ileostomy in March of 2019. MEDICATIONS: Medications at home include multivitamin. ALLERGIES: NO KNOWN DRUG ALLERGIES. SOCIAL HISTORY: No smoking. No alcohol use. FAMILY HISTORY: Mom with diabetes mellitus and hypertension. Brother has diabetes mellitus. REVIEW OF SYSTEMS: CARDIOPULMONARY: No chest pain or shortness of breath. GENITOURINARY: No dysuria or hematuria. MUSCULOSKELETAL: Unremarkable. SKIN: Unremarkable. ENT/VISION: Unremarkable. CONSTITUTIONAL: Weight loss of 100 pounds since surgery, but regaining some of the weight. HEMATOLOGY: Unremarkable. PSYCHIATRY: Unremarkable. PHYSICAL EXAMINATION: She appears comfortable. No apparent distress. Vital signs are stable. Blood pressure 144/77, pulse rate 87, temperature 96.9. HEENT examination unremarkable. Conjunctivae pink. Sclerae anicteric. Oral cavity no lesions. NECK: No JVD or lymph node enlargement. CHEST: Clear to auscultation. HEART: Regular rate and rhythm. ABDOMEN: Soft. It was non-tender, non-distended. Bowel sounds are positive. No organomegaly. EXTREMITIES: No pedal edema. SKIN: No rashes. NEUROLOGIC: Alert and oriented x3. No focal deficits. LABS: Labs from today show WBC 9.1, hemoglobin 8.4, platelets 462. Sodium 138, potassium 3.5, chloride 113, CO2 16, BUN 18, creatinine 1.83, magnesium 0.4. ALT, AST, T- bilirubin and alkaline phosphatase are normal. Calcium was 7.3. C difficile toxin was negative. IMPRESSION: 1. Chronic diarrhea of several months' duration. Patient with ileostomy in April of 2018 at the time of hysterectomy followed by reversal of ileostomy by Dr. Resendiz in March of 2019. She presented to the hospital with severe chronic diarrhea of several months' duration with electrolyte abnormalities. She was noted to have severe hypomagnesemia and hypocalcemia, which are being treated appropriately. The patient stated that she did have a colonoscopy prior to the reversal of the colostomy by Dr. Resendiz which was completely within normal limits. Surprisingly, since she has been in the hospital her diarrhea has completely resolved. 2. Electrolyte abnormalities. 3. Elevated BUN and creatinine; possible chronic kidney disease, but possibility of prerenal azotemia needs to be considered. RECOMMENDATIONS: 1. Continue with magnesium and calcium supplements. 2. Since the diarrhea has completely resolved, at this time we will just watch her closely. If she has any recurrent episodes, we will consider antimotility agents. We will follow her closely during her hospital stay. Thank you for this consultation. MMODL / IJN: [id number] /
[2019-05-05 04:19] LABS: % Iron Saturation 14.81 (12.00-45.00)
[2019-05-05 07:07] LABS: Albumin 2.6 g/dL (3.5-5.0); Calcium 7.2 mg/dL (8.4-10.2); Magnesium 1.9 mg/dL (1.6-2.3); Potassium 4.3 mmol/L (3.5-5.1); Total Bilirubin 0.4 mg/dL (0.2-1.3); Total Protein 5.4 g/dL (6.3-8.2)
--- NOTE | 2019-05-05 09:12 | P.PN ---
Subjective Patient is seen in follow-up for acute kidney injury and electrolyte imbalance. Feeling better today. She had 2 loose bowel movements yesterday. Oral intake is improving. No vomiting. Vital signs are stable. General: The patient appeared well nourished and normally developed. HEENT: Head exam is unremarkable. Neck is without jugular venous distension. LUNGS: Lungs are clear to auscultation and percussion. Breath sounds decreased. HEART: Rate and Rhythm are regular. First and second heart sounds normal. No murmurs, rubs or gallops. ABDOMEN: Abdominal exam reveals normal bowel sounds. Non-tender and non- distended. No evidence of peritonitis. EXTREMITITES: No clubbing, cyanosis, or edema. Objective - Vital Signs Vital signs: Vital Signs Temp 98.1 F 05/05/19 04:00 Pulse 85 05/05/19 04:00 Resp 18 05/05/19 04:00 BP 144/76 05/05/19 04:00 Pulse Ox 98 05/05/19 04:00 Intake & Output 05/04/19 05/05/19 05/05/19 18:59 06:59 18:59 Intake Total 1176 800 240 Output Total 2 Balance 1174 800 240 Weight 54.6 kg Intake: Intake, IV Titration 700 800 Amount Calcium Gluconate 1 gm In 100 Sodium Chloride 0.9% 100 ml @ 100 mls/hr IVPB ONCE ONE Rx#:[id number] Sodium Chloride 0.9% 1, 600 800 000 ml @ 75 mls/hr IV . [id number] [facility] Rx#:[id number] Oral 476 240 Output: Stool 1 Urine/Stool Mix 1 Other: Voiding Method Toilet Toilet # Bowel Movements 3 - Labs CBC & Chem 7: 05/04/19 06:01 05/05/19 06:32 Labs: Abnormal Lab Results - Last 24 Hours (Table) 05/04/19 05/04/19 05/04/19 Range/Units 06:01 06:01 06:01 Chloride (98-107) mmol/L BUN (7-17) mg/dL Creatinine (0.52-1.04) mg/dL Glucose (74-99) mg/dL Calcium (8.4-10.2) mg/dL Iron 36 L (50-170) ug/dL Total Protein (6.3-8.2) g/dL Albumin (3.5-5.0) g/dL Vitamin D 25-Hydroxy 17.7 L (30.0-100.0) ng/mL PTH Intact 266.4 H (14.0-72.0) pg/mL 05/05/19 Range/Units 06:32 Chloride 110 H (98-107) mmol/L BUN 18 H (7-17) mg/dL Creatinine 1.72 H (0.52-1.04) mg/dL Glucose 127 H (74-99) mg/dL Calcium 7.2 L (8.4-10.2) mg/dL Iron (50-170) ug/dL Total Protein 5.4 L (6.3-8.2) g/dL Albumin 2.6 L (3.5-5.0) g/dL Vitamin D 25-Hydroxy (30.0-100.0) ng/mL PTH Intact (14.0-72.0) pg/mL Microbiology - Last 24 Hours (Table) 05/04/19 15:44 Stool Culture - Preliminary Stool Assessment and Plan Plan: Assessment: 1. Acute kidney injury mostly prerenal secondary to intravascular volume depletion from diarrhea, improving with IV hydration. Creatinine 1.72 today. 2. Metabolic acidosis secondary to acute kidney injury and GI losses. Better. Maintained on oral sodium bicarbonate. 3. Hypocalcemia secondary to parathyroid hormone resistance from severe hypomagnesemia. Better post replacement. Corrected calcium near 8.4. Vitamin D insufficiency noted. 4. Severe hypomagnesemia secondary to diarrhea. Better post replacement. Maintained on oral magnesium oxide. 5. Hypokalemia secondary to intracellular shifting from IV bicarb. Better. Plan: Decrease rate of normal saline to 50 mL an hour. Start Drisdol 50,000 units weekly. Stable to be discharged home from nephrology standpoint. Repeat BMP and magnesium level 3-4 days postdischarge. Follow up outpatient in the next 2 weeks.
[2019-05-05] MEDS ORDERED: ERGOCALCIFEROL 50,000 UNIT CAP PO SCH (09:15)
--- NOTE | 2019-05-05 09:53 | CDI ---
Documentation Clarification Form Date: 05/05/2019 09:39:06 AM From: Renee Aguilar RN, CCDS Admit Date: 05/03/2019 05:46:00 PM Patient Name: Mindi Coronel Visit Number: [id number] ATTENTION: The Clinical Documentation Specialists (CDI) and [facility] Coding Staff appreciate your assistance in clarifying documentation. Please respond to the clarification below the line at the bottom and electronically sign. The CDI & [facility] Coding staff will review the response and follow-up if needed. Please note: Queries are made part of the Legal Health Record. If you have any questions, please contact the author of this message via ITS. Dr. Catalina Magallon Chronic kidney disease has been documented by the attending and not mentioned by the Nephrology consult. Please provide further specificity to accurately reflect the patient's SOI/ROM. History/Risk Factors: 04/04/19 Patients Baseline BUN/CR/GFR: 18/3.52/13 HTN, Renal disease, Hx of RADHA and RADHA present on this admission Clinical Indicators: 05/03 H&P and 05/04 progress note: "Chronic kidney disease, improvement of creatinine." 05/04 GI Consult:"Elevated BUN and creatinine; possible chronic kidney disease, but possibility of prerenal azotemia needs to be considered." Current BUN: 18 CR:1.83/1.77/1.72 GFR: Treatment: IVF bolus 1 L D5 Bicarb drip @ 150 cc/hr followed by 0.9% NS @ 50 cc/hr Mag OX 400 mg Po BID also with IV Magnesium replacement In order to capture the severity of condition, please clarify if the condition signifies: CKD Stage 1 (GFR > 90) CKD Stage 2 (GFR 60-89) CKD Stage 3 (GFR 30-59) CKD Stage 4 (GFR 15-29) CKD Stage 5 (GFR <15) ESRD Other, please specify Unable to determine (Last Revision: July 2017) CHANDLER REDDY
--- NOTE | 2019-05-05 10:01 | CDI ---
Documentation Clarification Form Date: 05/05/2019 09:54:29 AM From: Renee Aguilar RN, CCDS Admit Date: 05/03/2019 05:46:00 PM Patient Name: Mindi Coronel Visit Number: [id number] ATTENTION: The Clinical Documentation Specialists (CDI) and [facility] Coding Staff appreciate your assistance in clarifying documentation. Please respond to the clarification below the line at the bottom and electronically sign. The CDI & [facility] Coding staff will review the response and follow-up if needed. Please note: Queries are made part of the Legal Health Record. If you have any questions, please contact the author of this message via ITS. Dr. Catalina Magallon A diagnosis of anemia lacks specificity to accurately reflect your patients severity of condition and clarification is needed. History/Risk Factors: HTN, renal disease Clinical indicators: 05/03 H&P and 05/04 Progress notes: "Anemia, chronic with thrombocytosis." Hemoglobin: 10.1/8.4 Hematocrit: 31.9/26 Treatment: monitoring labs 1l IVF Bolus D5 HCO3 drip @ 150 cc followed by 0.9% @ 50 cc/hr In order to capture the severity of condition, please clarify the type of anemia and etiology if known: Chronic blood loss anemia Iron deficiency anemia Anemia due to chronic disease Nutritional anemia Anemia of chronic kidney disease Unable to determine Other, please specify (Last Revision: January 2017) Unable to determine MTDD
[2019-05-05] MEDS: NICOTINE 14MG/24HR PATCH TRANSDERM SCH ×2 (10:52→10:56)
[2019-05-05] MEDS: MAGNESIUM OXIDE 400 MG TAB PO SCH (10:52)
[2019-05-05] MEDS: MULTIVITAMINS, THERA 1 EACH TAB PO SCH (10:52)
[2019-05-05] MEDS: CHOLESTYRAMINE (WITH SUGAR) 4 GM PACKET PO SCH ×2 (10:52→10:55)
[2019-05-05] MEDS: SODIUM BICARBONATE TAB 650 MG TAB PO SCH (10:52)
[2019-05-05 11:34] VITALS: TEMP 98.4
--- NOTE | 2019-05-05 13:17 | P.PN ---
Subjective Progress Note Date: 05/05/19 CHIEF COMPLAINT: Ileostomy reversal, diarrhea HISTORY OF PRESENT ILLNESS: Patient examined at the bedside. She denies abdominal pain. Tolerating diet. Denies nausea or vomiting. Reports diarrhea has improved. CDiff negative. PHYSICAL EXAM: VITAL SIGNS: Reviewed. GENERAL: Well-developed in no acute distress. HEENT: No sclera icterus. Extraocular movements grossly intact. Moist buccal mucosa. Head is atraumatic, normocephalic. ABDOMEN: Soft. Nondistended. Nontender. Incision healing nicely without drainage or redness. NEUROLOGIC: Alert and oriented. Cranial nerves II through XII grossly intact. ASSESSMENT: 1. Diarrhea 2. Hypomagnesemia 3. Hypocalcemia 4. History of ileostomy reversal, 03/31/2019 PLAN: Continue diet as tolerated May be discharged home from a surgical standpoint Lomojenifer PRN for diarrhea sent to patients pharmacy Follow up with Dr. Resendiz outpatient Nurse practitioner note has been reviewed by physician. Signing provider agrees with the documented findings, assessment, and plan of care. Objective - Vital Signs Vital signs: Vital Signs Temp 98.4 F 05/05/19 08:00 Pulse 84 05/05/19 08:00 Resp 18 05/05/19 04:00 BP 139/65 05/05/19 08:00 Pulse Ox 100 05/05/19 08:00 Intake & Output 05/04/19 05/05/19 05/05/19 18:59 06:59 18:59 Intake Total 1176 800 240 Output Total 2 Balance 1174 800 240 Weight 54.6 kg Intake: Intake, IV Titration 700 800 Amount Calcium Gluconate 1 gm In 100 Sodium Chloride 0.9% 100 ml @ 100 mls/hr IVPB ONCE ONE Rx#:[id number] Sodium Chloride 0.9% 1, 600 800 000 ml @ 50 mls/hr IV . Q20H [facility] Rx#:[id number] Oral 476 240 Output: Stool 1 Urine/Stool Mix 1 Other: Voiding Method Toilet Toilet # Voids 2 # Bowel Movements 3 - Labs CBC & Chem 7: 05/04/19 06:01 05/05/19 06:32 Labs: Abnormal Lab Results - Last 24 Hours (Table) 05/04/19 05/04/19 05/04/19 Range/Units 06:01 06:01 06:01 Chloride (98-107) mmol/L BUN (7-17) mg/dL Creatinine (0.52-1.04) mg/dL Glucose (74-99) mg/dL Calcium (8.4-10.2) mg/dL Iron 36 L (50-170) ug/dL Total Protein (6.3-8.2) g/dL Albumin (3.5-5.0) g/dL Vitamin D 25-Hydroxy 17.7 L (30.0-100.0) ng/mL PTH Intact 266.4 H (14.0-72.0) pg/mL 05/05/19 Range/Units 06:32 Chloride 110 H (98-107) mmol/L BUN 18 H (7-17) mg/dL Creatinine 1.72 H (0.52-1.04) mg/dL Glucose 127 H (74-99) mg/dL Calcium 7.2 L (8.4-10.2) mg/dL Iron (50-170) ug/dL Total Protein 5.4 L (6.3-8.2) g/dL Albumin 2.6 L (3.5-5.0) g/dL Vitamin D 25-Hydroxy (30.0-100.0) ng/mL PTH Intact (14.0-72.0) pg/mL Microbiology - Last 24 Hours (Table) 05/04/19 15:44 Stool Culture - Preliminary Stool
[2019-05-05 14:53] VITALS: BP 152/73; PULSE 91
--- NOTE | 2019-05-05 18:19 | P.DS ---
Providers Date of admission: 05/03/19 17:46 Expected date of discharge: 05/05/19 Attending physician: Catalina Magallon DO Consults: 05/03/19 18:25 Consult Physician Routine Consulting Provider: Parish Resendiz Consult Reason/Comments: ileostomy reversal with continued diarrhea Do you want consulting provider notified?: Yes Consult Physician Routine Consulting Provider: Lazaro Fonseca Consult Reason/Comments: severe hypocalcemia, hypomagnesemia, and hyperchloremic acidosis Do you want consulting provider notified?: Yes 05/04/19 10:28 Consult Physician Routine Consulting Provider: Cindy Walsh Consult Reason/Comments: chronic diarrhea Do you want consulting provider notified?: Yes Primary care physician: Tammy Antony Hospital Course: Discharge Diagnosis: Acute kidney injury and chronic kidney disease stage III, creatinine improving daily likely secondary to intravascular volume depletion due to diarrhea Severe diarrhea with recent ileostomy reversal Metabolic acidosis secondary to RADHA and GI losses Hypocalcemia Hypomagnesemia Vitamin D deficiency Hypokalemia Anemia, chronic, undetermined etiology with normal iron and folate. Will need B12 testing. 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 In the ER she underwent extensive evaluation. On her initial vital signs are slightly tachycardic with a pulse rate of 101. Initial laboratory analysis showed a hemoglobin 10.1, platelets 517, chloride 117, carbon dioxide 12, BUN 21, creatinine 2 (which is below her baseline of 3.52), calcium 5.8, magnesium 0.4, and slightly low album in at 3.4. She was started on calcium and magnesium replacement. Arrangements were made for admission. She was started on a bicarb gtt. Her Calcium and magnesium improved by the morning after admission and she was no longer acidotic. She was seen by nephrology and transitioned to normal saline and oral bicarb. She was found to have a high PTH and a low vitamin D level was also started on oral vitamin D. Her electrolytes stabilized and her creatinine improved throughout her hospital stay. She was eating and drinking well. She did have 6 bowel movements in 24 hours some which were solid consult which were liquid. She was seen by surgery who felt that this may be a normal course after reversal of her ileostomy. She was seen by GI. Case discussed with GI prior to discharge and they recommended Lomotil therapy and follow up in clinic in 2 weeks. She was determined stable for discharge home. She will continue receiving 4 L of normal saline throughout the week through Her home infusion company. She'll take Lomotil as needed for her diarrhea. She will follow up with Dr. Fonseca in 2 weeks, repeat BMP and magnesium level in 4 days. She'll follow up with Dr. Antony. Patient seen and examined at bedside. States she is feeling much better than when she came in, and better than she had quite some time. She denies any nausea or vomiting tolerating feedings well. Initially denies diarrhea and acute colitis that she still had 6 bowel movements in 24 hours. Vital signs reviewed and stable. General: non toxic, no distress, appears at stated age Derm: warm, dry Head: atraumatic, normocephalic, symmetric Eyes: EOMI, no lid lag, anicteric sclera Mouth: no lip lesion, mucus membranes moist Cardiovascular: S1S2 reg, no murmur, positive posterior tibial pulse bilateral, Lungs: CTA bilateral, no rhonchi, no rales , no accessory muscle use Abdominal: soft, nontender to palpation, no guarding, no appreciable organomegaly Ext: no gross muscle atrophy, no edema, no contractures Neuro: CN II-XI grossly intact, no focal neuro deficits Psych: Alert, oriented, appropriate affect A total of 35 minutes of time were spent preparing this complex discharge summary . Patient Condition at Discharge: Stable Plan - Discharge Summary Discharge Rx Participant: No New Discharge Prescriptions: New Diphenox-Atrop 2.5-0.025 mg [Lomotil] 2 tab PO QID PRN #24 tab PRN Reason: Diarrhea Magnesium Oxide [Mag-Ox] 400 mg PO BID #60 tab Sodium Bicarbonate Tab 650 mg PO BID #60 tab Ergocalciferol [Vitamin D2 (DRISDOL)] 50,000 unit PO Q7D #5 cap Continue Multivitamins, Thera [Multivitamin (formulary)] 1 tab PO DAILY Discharge Medication List Multivitamins, Thera [Multivitamin (formulary)] 1 tab PO DAILY 05/03/19 [History] Diphenox-Atrop 2.5-0.025 mg [Lomotil] 2 tab PO QID PRN #24 tab 05/05/19 [Rx] Ergocalciferol [Vitamin D2 (DRISDOL)] 50,000 unit PO Q7D #5 cap 05/05/19 [Rx] Magnesium Oxide [Mag-Ox] 400 mg PO BID #60 tab 05/05/19 [Rx] Sodium Bicarbonate Tab 650 mg PO BID #60 tab 05/05/19 [Rx] Follow up Appointment(s)/Referral(s): Cindy Walsh MD [STAFF PHYSICIAN] - 05/30/19 10:45 am Lazaro Fonseca DO [STAFF PHYSICIAN] - 05/18/19 11:15 am (Kidney specialist - please keep previous follow up appointment. ) Tammy Antony MD [Primary Care Provider] - 1 Week (Office will call with a follow up appointment. ) Parish Resendiz MD [STAFF PHYSICIAN] - 05/12/19 2:10 pm Ambulatory/Diagnostic Orders: Basic Metabolic Panel [LAB.AMB] Time Frame: 4 Days, Location: None Selected Basic Metabolic Panel [LAB.AMB] Time Frame: 4 Days, Location: None Selected Magnesium [LAB.AMB] Time Frame: 4 Days, Location: None Selected Patient Instructions/Handouts: Chronic Diarrhea (DC), Hypocalcemia (DC), Hypomagnesemia (DC), Vitamin D Deficiency (ED) Activity/Diet/Wound Care/Special Instructions: Home Care - [facility] - [phone] Home Infusion - [place] - [phone] Discharge Disposition: HOME WITH HOME HEALTH SERVICES
== END 2019-05-05 15:37 | disposition home health service (06) | DRG 641 ==
LOC: EC 14:26 → 3SCARD 17:46
PROVIDERS: ADMIT Internal Medicine; ATTEND Internal Medicine
DX: E86.9 Volume depletion, unspecified (principal); N17.9 Acute kidney failure, unspecified; E83.51 Hypocalcemia; E87.2 Acidosis; E83.42 Hypomagnesemia; E87.8 Other disorders of electrolyte and fluid balance, not elsewhere classified; N18.3 Chronic kidney disease, stage 3 (moderate); I12.9 Hypertensive chronic kidney disease with stage 1 through stage 4 chronic kidney disease, or unspecified chronic kidney disease; M06.9 Rheumatoid arthritis, unspecified; K52.9 Noninfective gastroenteritis and colitis, unspecified; M19.042 Primary osteoarthritis, left hand; E87.6 Hypokalemia; E55.9 Vitamin D deficiency, unspecified; D64.9 Anemia, unspecified; M19.041 Primary osteoarthritis, right hand; F17.210 Nicotine dependence, cigarettes, uncomplicated; Z79.899 Other long term (current) drug therapy; Z90.49 Acquired absence of other specified parts of digestive tract; Z98.890 Other specified postprocedural states; Z90.710 Acquired absence of both cervix and uterus; Z96.698 Presence of other orthopedic joint implants; Z82.49 Family history of ischemic heart disease and other diseases of the circulatory system; Z83.3 Family history of diabetes mellitus
CPT/HCPCS: 36415; 80048; 80053; 81001; 82306; 82330; 82728; 82747; 83540; 83550; 83605; 83735; 83970; 84100; 84443; 85025; 85027; 87045; 87046; 87324; 93005; 96361; 96365; 96366; 96367; 96375; 99285